=== PATIENT | female | born 1950 | race Caucasian/White ===

== ENCOUNTER 2016-09-24 22:20 | Inpatient (IN) | payer MEDICARE ==
[2016-09-24] MEDS ORDERED: MAGNESIUM SULFATE/D5W 1 GM/100 ML RTUPB IV ONE (23:42)
[2016-09-24] MEDS ORDERED: METHYLPREDNISOLONE INJ 125 MG/2 ML SDV ONE (23:43)
[2016-09-24] MEDS ORDERED: ALBUTEROL SULFATE 0.083% NEB 2.5 MG/3 ML AMPUL NEB ONE ×2 (23:44→23:47)
[2016-09-24 23:46] LABS: ABSOLUTE BASOPHILS # (AUTO) 0.1 10^3/uL (0.0-0.2); ABSOLUTE EOSINOPHILS # (AUTO) 0.4 10^3/uL (0.0-0.6); ABSOLUTE MONOCYTES (AUTO) 1.8 10^3/uL (0.1-1.4); ABSOLUTE NEUT (AUTO) 11.4 10^3/uL (1.7-8.2); BASOPHILS % (AUTO) 0.4 % (0-2); EOSINOPHILS % (AUTO) 2.5 % (0-6); HEMATOCRIT 36.5 % (36.0-47.0); HEMOGLOBIN 12.5 g/dL (12.0-15.5); MEAN CORPUSCULAR HGB CONC 34.3 g/dL (32.0-36.0); MEAN CORPUSCULAR VOLUME 88 fl (80-97); MONOCYTES % (AUTO) 12.1 % (3-13); RED BLOOD COUNT 4.17 10^6/uL (3.72-5.28); RED CELL DISTRIBUTION WIDTH 12.3 % (11.5-14.0); WHITE BLOOD COUNT 14.6 10^3/uL (4.0-10.5)
--- NOTE | 2016-09-24 23:48 | ER Document Report ---
ED General - General Chief Complaint: Shortness Of Breath Stated Complaint: DIFFICULTY BREATHING Cannot obtain history due to: Unstable vital signs Notes: Patient is a 66-year-old female with past history of COPD who presents in respiratory distress. States he's had progressive worsening of shortness of breath, cough, and sputum production for the last 4 days. She's been trying [id number] cough suppressants and her normal inhalers without any improvement in her symptoms. Nothing worsens or symptoms other than exertion. She has not seen her primary care physician regarding today's concerns. She states she has not had a fever at home. States she's had similar COPD exacerbations in the past that required admission to the hospital and noninvasive ventilation. She's never been intubated in the past. TRAVEL OUTSIDE OF THE [place] IN LAST 30 DAYS: No - Related Data Allergies/Adverse Reactions: No Known Allergies Allergy (Verified 11/18/14 13:31) Past Medical History - General Information source: Patient - Social History Smoking Status: Former Smoker Frequency of alcohol use: None Drug Abuse: None Lives with: Spouse/Significant other Family History: Reviewed & Not Pertinent - Past Medical History Cardiac Medical History: Reports: Hx Hypertension Denies: Hx Coronary Artery Disease, Hx Heart Attack Pulmonary Medical History: Reports: Hx Asthma, Hx Bronchitis, Hx COPD, Hx Pneumonia Neurological Medical History: Reports: Hx Seizures. Denies: Hx Cerebrovascular Accident Endocrine Medical History: Denies: Hx Diabetes Mellitus Type 2 Musculoskeltal Medical History: Reports Hx Arthritis Past Surgical History: Reports: Hx Appendectomy, Hx Hysterectomy, Hx Orthopedic Surgery. Denies: Hx Pacemaker - Immunizations Immunizations up to date: Yes Hx Diphtheria, Pertussis, Tetanus Vaccination: Yes Review of Systems - Review of Systems Notes: Constitutional: Negative for fever. HENT: Negative for sore throat. Eyes: Negative for visual changes. Cardiovascular: Negative for chest pain. Respiratory: Positive for shortness of breath. Gastrointestinal: Negative for abdominal pain, vomiting or diarrhea. Genitourinary: Negative for dysuria. Musculoskeletal: Negative for back pain. Skin: Negative for rash. Neurological: Negative for headaches, weakness or numbness. 10 point ROS negative except as marked above and in HPI. Physical Exam - Vital signs Vitals: Temp Pulse Resp BP Pulse Ox 98.4 F 106 H 18 146/68 H 98 09/24/16 22:25 09/24/16 22:25 09/24/16 22:25 09/24/16 22:25 09/24/16 22:25 Interpretation: Tachycardic, Hypoxic, Tachypneic Notes: PHYSICAL EXAMINATION: GENERAL: Very ill in appearance, pale and diaphoretic. In respiratory distress HEAD: Atraumatic, normocephalic. EYES: Pupils equal round and reactive to light, extraocular movements intact, sclera anicteric, conjunctiva are normal. ENT: nares patent, oropharynx clear without exudates. Dry mucous membranes. NECK: Normal range of motion, supple without lymphadenopathy LUNGS: Patient is tight air movement bilaterally, lung sounds grossly diminished on the right. She is in respiratory distress with tachypnea, supraclavicular and intercostal retractions HEART: Regular tachycardia without murmurs ABDOMEN: Soft, nontender, normoactive bowel sounds. No guarding, no rebound. No masses appreciated. EXTREMITIES: Normal range of motion, no pitting or edema. No cyanosis. NEUROLOGICAL: No focal neurological deficits. Moves all extremities spontaneously and on command. PSYCH: Normal mood, normal affect. SKIN: Warm, Dry, normal turgor, no rashes or lesions noted. Course - Re-evaluation Re-evalutation: 09/24/16 23:45 Patient arrives in respiratory distress, with supraclavicular and intercostal retractions. She is saturating 84% on 6 L by nasal cannula. Immediately upon assessment of the patient I called for BiPAP to be started immediately. Continuous nebulizers were ordered. She has already received Solu-Medrol by EMS. 2 g of magnesium will be administered over 20 minutes. A stat portal chest x-ray has been requested. Patient is critically ill from a COPD exacerbation at this time based on exam and history. She will require frequent assessments. 09/25/16 00:35 On BiPAP, patient is much improved her retractions have resolved as has her tachypnea. She is saturating 92% on 40% FiO2. She is now talking in complete sentences. Awaiting chest x-ray and lab results 09/25/16 01:21 Chest x-ray does demonstrate a right lung pneumatic infiltrate. Patient's FiO2 had to be increased to 60% as she desaturated to 89% on 40% FiO2. Her work of breathing remains much improved. Her venous blood gas does demonstrate findings consistent with a respiratory acidosis. Ceftriaxone and azithromycin as well as IV fluids will be started at this time. Her lactate is 0.7. 09/25/16 02:08 I've spoken with the patient's primary care physician Dr. Parr will admit her to the ICU. Her work of breathing continues to be much improved at this time. - Vital Signs Vital signs: Temp Pulse Resp BP Pulse Ox 98.4 F 106 H 23 H 99/57 L 96 09/24/16 22:25 09/24/16 22:25 09/25/16 01:02 09/25/16 01:02 09/25/16 01:02 - Laboratory Result Diagrams: 09/24/16 22:36 09/24/16 22:36 Laboratory results interpreted by me: 09/24/16 09/24/16 09/24/16 22:36 22:36 22:36 WBC 14.6 H Lymphocytes % 7.0 L Absolute Neutrophils 11.4 H Absolute Monocytes 1.8 H VBG pH 7.29 L VBG pCO2 82.7 H* VBG HCO3 38.7 H Sodium 136.1 L Chloride 89 L Carbon Dioxide 38 H Creatinine 0.46 L Glucose 140 H - Diagnostic Test Radiology reviewed: Image reviewed, Reports reviewed Radiology results interpreted by me: 09/25/16 02:09 Chest x-ray: Diffuse right lung infiltrate - EKG Interpretation by Me Additional EKG results interpreted by me: 09/25/16 02:11 Normal sinus rhythm. Rate 94. No ST elevations or depressions. QTC 491 Critical Care Note - Critical Care Note Total time excluding time spent on procedures (mins): 40 Comments: Critical care time spent obtaining history from patient or surrogate, discussions with consultants, development of treatment plan with patient or surrogate, evaluation of patient's response to treatment, examination of patient , ordering and performing treatments and interventions, ordering and review of laboratory studies, re-evaluation of patient's condition, ordering and review of radiographic studies and review of old charts Discharge - Discharge Clinical Impression: Respiratory distress, COPD exacerbation Pneumonia Qualifiers: Pneumonia type: due to unspecified organism Laterality: right Lung location: unspecified part of lung Qualified Code(s): J18.9 - Pneumonia, unspecified organism Sepsis Qualifiers: Sepsis type: sepsis due to unspecified organism Qualified Code(s): A41.9 - Sepsis, unspecified organism Condition: Critical Disposition: ADMITTED INPATIENT Admitting Provider: Adrian Unit Admitted: ICU
[2016-09-24] MEDS: MAGNESIUM SULFATE/D5W 100 ML IV SCH (23:55)
[2016-09-25] MEDS: MAGNESIUM SULFATE/D5W 100 ML IV SCH (00:10)
[2016-09-25 00:27] LABS: VENOUS BLOOD BASE EXCESS 7.3 mmol/L; VENOUS BLOOD HCO3 38.7 mmol/L (20-32); VENOUS BLOOD PH 7.29 (7.30-7.42)
[2016-09-25 00:30] LABS: VENOUS BLOOD PCO2 82.7 mmHg (35-63)
[2016-09-25 00:51] LABS: ANION GAP 9 (5-19); BLOOD UREA NITROGEN 9 mg/dL (7-20); CARBON DIOXIDE 38 mmol/L (22-30); CHLORIDE 89 mmol/L (98-107); CREATININE RESULT 0.46 mg/dL (0.52-1.25); GLUCOSE 140 mg/dL (75-110); POTASSIUM 4.2 mmol/L (3.6-5.0); SODIUM 136.1 mmol/L (137-145)
[2016-09-25] MEDS ORDERED: AZITHROMYCIN 250 MG TABLET PO ONE (01:00)
[2016-09-25] MEDS ORDERED: CEFTRIAXONE 1 GM/D5W RTU 50 ML IV ONE (01:00)
[2016-09-25] MEDS ORDERED: NORMAL SALINE 1000 ML 1,000 ML IV ONE (01:01)
[2016-09-25] MEDS ORDERED: ACETAMINOPHEN 325 MG TABLET PO PRN (01:54)
[2016-09-25] MEDS ORDERED: IPRATROPIUM/ALBUTEROL 0.5-2.5 MG/3 ML AMPUL NEB PRN (01:54)
[2016-09-25] MEDS: IPRATROPIUM/ALBUTEROL 0.5-2.5 MG/3 ML AMPUL NEB SCH ×4 (02:53→19:24)
[2016-09-25 03:42] LABS: ARTERIAL BLOOD BASE EXCESS 7.5 mmol/L; ARTERIAL BLOOD O2 SATURATION 96.9 % (94-98)
[2016-09-25] MEDS: ESCITALOPRAM OXALATE 10 MG TABLET PO SCH ×2 (03:52→09:20)
[2016-09-25] MEDS: CETIRIZINE 10 MG TABLET PO SCH ×2 (03:53→09:19)
[2016-09-25] MEDS ORDERED: FLUTICASONE NASAL SPRAY 50 MCG/SPRY 120 SPRAY/16 GM ONE (04:06)
[2016-09-25 04:37] LABS: HEMATOCRIT 32.5 % (36.0-47.0); HEMOGLOBIN 11.2 g/dL (12.0-15.5); HGB HCT DIFFERENCE 1.1; MEAN CORPUSCULAR HEMOGLOBIN 30.3 pg (27.0-33.4); MEAN CORPUSCULAR HGB CONC 34.5 g/dL (32.0-36.0); MEAN CORPUSCULAR VOLUME 88 fl (80-97); RED CELL DISTRIBUTION WIDTH 12.8 % (11.5-14.0); WHITE BLOOD COUNT 11.4 10^3/uL (4.0-10.5)
[2016-09-25 04:44] LABS: ANION GAP 8 (5-19); BLOOD UREA NITROGEN 11 mg/dL (7-20); CALCIUM 8.3 mg/dL (8.4-10.2); CARBON DIOXIDE 36 mmol/L (22-30); CHLORIDE 91 mmol/L (98-107); CREATININE RESULT 0.47 mg/dL (0.52-1.25); GLUCOSE 178 mg/dL (75-110); POTASSIUM 4.3 mmol/L (3.6-5.0); SODIUM 135.4 mmol/L (137-145)
[2016-09-25 04:54] LABS: BASOPHILS % (MANUAL) 0 % (0-2); EOSINOPHILS % (MANUAL) 0 % (0-6); LYMPHOCYTES % (MANUAL) 3 % (13-45); TOTAL CELLS COUNTED 100
[2016-09-25 05:02] LABS: PLATELET CLUMPS PRESENT; RBC MORPHOLOGY COMMENT NORMO-CYTIC/CHROMIC
[2016-09-25] MEDS: HEPARIN SOD (PORCINE) 5,000 UNIT/ML 1 ML SYRINGE SUBCUT SCH ×3 (06:33→22:03)
[2016-09-25] MEDS: METHYLPREDNISOLONE INJ 125 MG/2 ML SDV IV SCH ×3 (06:35→22:05)
--- NOTE | 2016-09-25 07:35 | PDOC H&P ---
History of Present Illness Admission Date/PCP: 09/25/16 01:54 RIGOBERTO CURTIS MD Patient complains of: dyspnea History of Present Illness: PRASAD CLAROS is a 66 year old female with 1w productive cough, wheeze, and dyspnea up over baseline. Smoked from 82-05. Obstructive lung since 98. Past Medical History Cardiac Medical History: Reports: Hypertension Denies: Coronary Artery Disease, Myocardial Infarction Pulmonary Medical History: Reports: Bronchitis, Chronic Obstructive Pulmonary Disease (COPD), Pneumonia, Respiratory Failure EENT Medical History: Reports: Nose - allergic rhinitis Neurological Medical History: Reports: Seizures Endocrine Medical History: Reports: Other - prediabetes Renal/ Medical History: Reports: None Malignancy Medical History: Reports: None GI Medical History: Reports: Other - polyps Musculoskeltal Medical History: Reports: Other - osteoporosis tearRmeniscus Skin Medical History: Reports: None Psychiatric Medical History: Reports: Depression Traumatic Medical History: Reports: Other - fracture R wrist Hematology: Reports: None Infectious Medical History: Reports: None Past Surgical History Past Surgical History: Reports: Appendectomy, Hysterectomy, Orthopedic Surgery - Rmenisectomy Denies: Pacemaker Social History Information Source: Dr. Priest Lives with: Spouse/Significant other Smoking Status: Former Smoker Number of Years Smokin Last Time Smoked: 2001 Frequency of Alcohol Use: None Hx Recreational Drug Use: No Hx Prescription Drug Abuse: No - Advance Directive Resuscitation Status: Full Code Family History Family History: CAD, CVA, Hypertension, Malignancy Parental Family History Reviewed: Yes Children Family History Reviewed: Yes Sibling(s) Family History Reviewed.: Yes Medication/Allergy Home Medications: Albuterol Sulfate [Proair HFA] 1 - 2 puff IH Q4 PRN 11/18/14 Cetirizine HCl [Zyrtec] 10 mg PO DAILY 11/18/14 Simvastatin [Zocor 40 mg Tablet] 40 mg PO QHS 11/18/14 Tiotropium [place] [Spiriva Handihaler 5 Cap/Kit (18 Mcg/Cap)] 1 inh PO BID Escitalopram Oxalate [Lexapro] 20 mg PO DAILY 11/19/14 Fluticasone/Salmeterol [Advair 500-50 Diskus 14 Dose/Diskus] 1 inh IH Q12H 11/19 Phenytoin Sodium Extended [Dilantin 100 mg Capsule.er] 400 mg PO QAM 11/19/14 Losartan Potassium 100 mg PO DAILY 09/25/16 Montelukast Sodium 10 mg PO DAILY 09/25/16 Allergies/Adverse Reactions: No Known Allergies Allergy (Verified 09/25/16 05:30) Review of Systems Constitutional: ABSENT: fever(s), headache(s), weight loss Nose, Mouth, and Throat: ABSENT: headache(s), sore throat Cardiovascular: PRESENT: dyspnea on exertion. ABSENT: chest pain, orthropnea Respiratory: PRESENT: cough, dyspnea, sputum Gastrointestinal: PRESENT: diarrhea. ABSENT: abdominal pain, constipation, hematochezia, melena, vomiting Genitourinary: ABSENT: dysuria, hematuria Musculoskeletal: ABSENT: back pain Integumentary: ABSENT: rash Physical Exam Vital Signs: Temp Pulse Resp BP Pulse Ox 98.0 F 80 21 H 115/56 L 94 09/25/16 06:40 09/25/16 06:40 09/25/16 06:40 09/25/16 06:40 09/25/16 06:40 Intake & Output 09/23/16 09/24/16 09/25/16 07:59 07:59 07:59 Weight 176 lb 12.972 oz General appearance: PRESENT: no acute distress Eye exam: ABSENT: conjunctival injection Mouth exam: PRESENT: dry mucosa, neck supple, tongue midline Neck exam: ABSENT: lymphadenopathy, tenderness, thyromegaly, tracheal deviation Respiratory exam: PRESENT: prolonged expiratory phas, wheezes - slignt. ABSENT : rales, rhonchi Cardiovascular exam: ABSENT: diastolic murmur, irregular rhythm, systolic murmur GI/Abdominal exam: ABSENT: mass, organolmegaly, tenderness Extremities exam: ABSENT: pedal edema Neurological exam: PRESENT: oriented to situation Psychiatric exam: PRESENT: appropriate affect Results Laboratory Results: 09/25/16 03:26 09/25/16 03:26 09/25/16 09/25/16 09/25/16 03:26 03:26 03:34 WBC 11.4 H RBC 3.70 L Hgb 11.2 L Hct 32.5 L MCV 88 MCH 30.3 MCHC 34.5 RDW 12.8 Plt Count 342 Seg Neutrophils % Not Reportable Lymphocytes % Not Reportable Monocytes % Not Reportable Eosinophils % Not Reportable Basophils % Not Reportable Absolute Neutrophils Not Reportable Absolute Lymphocytes Not Reportable Absolute Monocytes Not Reportable Absolute Eosinophils Not Reportable Absolute Basophils Not Reportable Carbonic Acid 2.03 H HCO3/H2CO3 Ratio 17:1 ABG pH 7.34 L ABG pCO2 67.4 H ABG pO2 98.2 ABG HCO3 35.4 H ABG O2 Saturation 96.9 ABG Base Excess 7.5 FiO2 60% Sodium 135.4 L Potassium 4.3 Chloride 91 L Carbon Dioxide 36 H Anion Gap 8 BUN 11 Creatinine 0.47 L Est GFR ( Amer) > 60 Est GFR (Non-Af Amer) > 60 Glucose 178 H Calcium 8.3 L Impressions: Chest X-Ray 09/24/16 23:37 IMPRESSION: Fairly diffuse ill-defined interstitial and alveolar densities in the right lung as noted above most consistent with a pneumonic infiltrate. Other findings as noted above Assessment & Plan - Diagnosis (1) Acute exacerbation of chronic bronchitis Is this a current diagnosis for this admission?: YesPlan: steroid, levaquin, nebs (2) Pneumonia Qualifiers: Pneumonia type: due to unspecified organism Laterality: right Lung location: lower lobe of lung Qualified Code(s): J18.1 - Lobar pneumonia, unspecified organism Is this a current diagnosis for this admission?: YesPlan: levaquin (3) Sepsis-associated organ dysfunction Is this a current diagnosis for this admission?: YesPlan: pulse respirations wbc pneumonia (4) Acute and chronic respiratory failure with hypercapnia Is this a current diagnosis for this admission?: YesPlan: pCO2 & CO2 high. Now off bipap but may need it again - Time Time Spent: 30 to 50 Minutes Smoking Cessation Education: 3 to 10 minutes Medications reviewed and adjusted accordingly: Yes Anticipated discharge: Home Within: Other
[2016-09-25] MEDS: PHENYTOIN SODIUM EXTENDED 100 MG CAPSULE PO SCH (07:45)
[2016-09-25] MEDS: GUAIFENESIN 600 MG TABLET.SA PO SCH ×2 (09:20→22:00)
[2016-09-25] MEDS: FLUTICASONE NASAL SPRAY 50 MCG/SPRY 120 SPRAY/16 GM NASL SCH ×2 (09:22→22:02)
[2016-09-25] MEDS: TIOTROPIUM BROMIDE DPI 5 CAP/KIT (18 MCG/CAP) IH SCH (09:22)
[2016-09-25] MEDS ORDERED: LEVOFLOXACIN 750 MG/D5W RTU 750 MG/150 ML RTUPB IV SCH (10:00)
--- NOTE | 2016-09-25 11:01 | EKG REPORT ---
SEVERITY:- ABNORMAL ECG - SINUS RHYTHM PROBABLE LEFT ATRIAL ABNORMALITY LEFT AXIS DEVIATION LVH WITH SECONDARY REPOLARIZATION ABNORMALITY BORDERLINE PROLONGED QT INTERVAL : Confirmed by: Manas Scherer 25-Sep-2016 11:00:56
[2016-09-25] MEDS: SIMVASTATIN 40 MG TABLET PO SCH (22:00)
[2016-09-26] MEDS: IPRATROPIUM/ALBUTEROL 0.5-2.5 MG/3 ML AMPUL NEB SCH ×4 (02:04→19:49)
[2016-09-26 04:57] LABS: ABSOLUTE LYMPHOCYTES (AUTO) 0.8 10^3/uL (0.5-4.7); ABSOLUTE MONOCYTES (AUTO) 0.6 10^3/uL (0.1-1.4); ABSOLUTE NEUT (AUTO) 8.2 10^3/uL (1.7-8.2); BASOPHILS % (AUTO) 0.3 % (0-2); EOSINOPHILS % (AUTO) 0.1 % (0-6); HEMATOCRIT 30.6 % (36.0-47.0); HEMOGLOBIN 10.6 g/dL (12.0-15.5); HGB HCT DIFFERENCE 1.2; MEAN CORPUSCULAR HGB CONC 34.7 g/dL (32.0-36.0); MEAN CORPUSCULAR VOLUME 86 fl (80-97); MONOCYTES % (AUTO) 6.6 % (3-13); RED BLOOD COUNT 3.55 10^6/uL (3.72-5.28); RED CELL DISTRIBUTION WIDTH 12.6 % (11.5-14.0); WHITE BLOOD COUNT 9.6 10^3/uL (4.0-10.5)
[2016-09-26 05:19] LABS: ANION GAP 5 (5-19); BLOOD UREA NITROGEN 12 mg/dL (7-20); CALCIUM 8.3 mg/dL (8.4-10.2); CARBON DIOXIDE 37 mmol/L (22-30); CHLORIDE 89 mmol/L (98-107); GLUCOSE 164 mg/dL (75-110); POTASSIUM 5.2 mmol/L (3.6-5.0); SODIUM 131.4 mmol/L (137-145)
[2016-09-26] MEDS ORDERED: FLUTICASONE/SALMETEROL DISKUS 500-50 MCG/DOSE IH SCH (06:45)
--- NOTE | 2016-09-26 06:52 | PDOC PROGRESS REPORT ---
Subjective Progress Note for:: 09/26/16 Subjective:: better. Misses juarezair Physical Exam Vital Signs: Temp Pulse Resp BP Pulse Ox 98.7 F 82 18 124/55 L 93 09/25/16 23:08 09/26/16 06:24 09/26/16 02:04 09/25/16 23:08 09/26/16 02:04 Intake & Output 09/24/16 09/25/16 09/26/16 07:59 07:59 07:59 Intake Total 1397 Balance 1397 Weight 176 lb 12.972 oz General appearance: PRESENT: no acute distress Respiratory exam: PRESENT: wheezes - mild Cardiovascular exam: ABSENT: diastolic murmur, irregular rhythm, systolic murmur GI/Abdominal exam: ABSENT: mass, organolmegaly, tenderness Extremities exam: ABSENT: pedal edema Results Laboratory Results: 09/26/16 04:13 09/26/16 04:13 09/26/16 09/26/16 04:13 04:13 WBC 9.6 RBC 3.55 L Hgb 10.6 L Hct 30.6 L MCV 86 MCH 30.0 MCHC 34.7 RDW 12.6 Plt Count 384 Seg Neutrophils % 85.0 H Lymphocytes % 8.0 L Monocytes % 6.6 Eosinophils % 0.1 Basophils % 0.3 Absolute Neutrophils 8.2 Absolute Lymphocytes 0.8 Absolute Monocytes 0.6 Absolute Eosinophils 0.0 Absolute Basophils 0.0 Sodium 131.4 L Potassium 5.2 H Chloride 89 L Carbon Dioxide 37 H Anion Gap 5 BUN 12 Creatinine 0.50 L Est GFR ( Amer) > 60 Est GFR (Non-Af Amer) > 60 Glucose 164 H Calcium 8.3 L EKG Comments: Abnormal - 24 hr 09/26/16 09/26/16 04:13 04:13 RBC 3.55 L Hgb 10.6 L Hct 30.6 L Seg Neutrophils % 85.0 H Lymphocytes % 8.0 L Sodium 131.4 L Potassium 5.2 H Chloride 89 L Carbon Dioxide 37 H Creatinine 0.50 L Glucose 164 H Calcium 8.3 L Impressions: Chest X-Ray 09/24/16 23:37 IMPRESSION: Fairly diffuse ill-defined interstitial and alveolar densities in the right lung as noted above most consistent with a pneumonic infiltrate. Other findings as noted above Assessment & Plan - Diagnosis (1) Acute exacerbation of chronic bronchitis Is this a current diagnosis for this admission?: YesPlan: improving. Switch po meds (2) Pneumonia Qualifiers: Pneumonia type: due to unspecified organism Laterality: right Lung location: lower lobe of lung Qualified Code(s): J18.1 - Lobar pneumonia, unspecified organism Is this a current diagnosis for this admission?: Yes (3) Sepsis-associated organ dysfunction Is this a current diagnosis for this admission?: Yes (4) Acute and chronic respiratory failure with hypercapnia Is this a current diagnosis for this admission?: Yes (5) Anemia Qualifiers: Anemia type: unspecified type Qualified Code(s): D64.9 - Anemia, unspecified Is this a current diagnosis for this admission?: YesPlan: Hct down 6 since admission. iron studies. Stop heparin
[2016-09-26] MEDS: PHENYTOIN SODIUM EXTENDED 100 MG CAPSULE PO SCH (07:07)
[2016-09-26 08:31] LABS: FOLATE 6.92 ng/mL (>2.76)
[2016-09-26] MEDS: CETIRIZINE 10 MG TABLET PO SCH (09:56)
[2016-09-26] MEDS: GUAIFENESIN 600 MG TABLET.SA PO SCH ×2 (09:57→21:34)
[2016-09-26] MEDS: PREDNISONE 20 MG TABLET PO SCH ×2 (09:57→17:11)
[2016-09-26] MEDS: LEVOFLOXACIN 750 MG TABLET PO SCH (09:57)
[2016-09-26] MEDS: ESCITALOPRAM OXALATE 10 MG TABLET PO SCH (09:58)
[2016-09-26] MEDS: TIOTROPIUM BROMIDE DPI 5 CAP/KIT (18 MCG/CAP) IH SCH (09:59)
[2016-09-26] MEDS: FLUTICASONE NASAL SPRAY 50 MCG/SPRY 120 SPRAY/16 GM NASL SCH ×2 (09:59→21:35)
[2016-09-26] MEDS: FLUTICASONE/SALMETEROL DISKUS 500-50 MCG/DOSE IH SCH ×2 (10:00→21:35)
[2016-09-26 14:16] LABS: URINE BARBITURATES SCREEN NEGATIVE; URINE METHADONE SCREEN NEGATIVE; URINE PHENCYCLIDINE SCREEN NEGATIVE
[2016-09-26 14:29] LABS: URINE OPIATES LOW UNCONFIRMED POSITIVE
[2016-09-26] MEDS: SIMVASTATIN 40 MG TABLET PO SCH (21:34)
[2016-09-27] MEDS: IPRATROPIUM/ALBUTEROL 0.5-2.5 MG/3 ML AMPUL NEB SCH ×4 (02:28→19:51)
[2016-09-27 05:20] LABS: ABSOLUTE EOSINOPHILS # (AUTO) 0.1 10^3/uL (0.0-0.6); ABSOLUTE LYMPHOCYTES (AUTO) 2.1 10^3/uL (0.5-4.7); ABSOLUTE MONOCYTES (AUTO) 1.1 10^3/uL (0.1-1.4); ABSOLUTE NEUT (AUTO) 6.6 10^3/uL (1.7-8.2); BASOPHILS % (AUTO) 0.5 % (0-2); EOSINOPHILS % (AUTO) 1.1 % (0-6); HEMATOCRIT 33.6 % (36.0-47.0); HEMOGLOBIN 11.3 g/dL (12.0-15.5); HGB HCT DIFFERENCE 0.3; LYMPHOCYTES % (AUTO) 21.4 % (13-45); MEAN CORPUSCULAR HEMOGLOBIN 29.6 pg (27.0-33.4); MEAN CORPUSCULAR HGB CONC 33.7 g/dL (32.0-36.0); MEAN CORPUSCULAR VOLUME 88 fl (80-97); MONOCYTES % (AUTO) 11.1 % (3-13); RED BLOOD COUNT 3.82 10^6/uL (3.72-5.28); RED CELL DISTRIBUTION WIDTH 12.2 % (11.5-14.0); SEGMENTED NEUTROPHILS % (AUTO) 65.9 % (42-78)
[2016-09-27 05:45] LABS: ANION GAP 8 (5-19); BLOOD UREA NITROGEN 11 mg/dL (7-20); CALCIUM 8.5 mg/dL (8.4-10.2); CARBON DIOXIDE 37 mmol/L (22-30); CHLORIDE 91 mmol/L (98-107); CREATININE RESULT 0.45 mg/dL (0.52-1.25); GLUCOSE 132 mg/dL (75-110); POTASSIUM 4.3 mmol/L (3.6-5.0); SODIUM 135.6 mmol/L (137-145)
--- NOTE | 2016-09-27 06:54 | PDOC PROGRESS REPORT ---
Subjective Progress Note for:: 09/27/16 Subjective:: improving but not a baseline yet wants to consult Dr Mosley Physical Exam Vital Signs: Temp Pulse Resp BP Pulse Ox 98.1 F 73 20 116/71 92 09/27/16 04:33 09/27/16 04:33 09/27/16 04:33 09/27/16 04:33 09/27/16 04:33 Intake & Output 09/25/16 09/26/16 09/27/16 07:59 07:59 07:59 Intake Total 1697 1317 Output Total 2900 Balance 1697 -1583 Weight 176 lb 12.972 oz 185 lb 3.013 oz General appearance: PRESENT: no acute distress Respiratory exam: PRESENT: clear to auscultation pooja Cardiovascular exam: ABSENT: diastolic murmur, irregular rhythm, systolic murmur GI/Abdominal exam: ABSENT: mass, organolmegaly, tenderness Extremities exam: ABSENT: pedal edema Results Laboratory Results: 09/27/16 03:55 09/27/16 03:55 09/26/16 09/26/16 09/27/16 04:13 04:13 03:55 WBC 10.0 RBC 3.82 Hgb 11.3 L Hct 33.6 L MCV 88 MCH 29.6 MCHC 33.7 RDW 12.2 Plt Count 435 Seg Neutrophils % 65.9 Lymphocytes % 21.4 Monocytes % 11.1 Eosinophils % 1.1 Basophils % 0.5 Absolute Neutrophils 6.6 Absolute Lymphocytes 2.1 Absolute Monocytes 1.1 Absolute Eosinophils 0.1 Absolute Basophils 0.0 Retic Count (auto) 1.60 Absolute Retic 0.059 Sodium Potassium Chloride Carbon Dioxide Anion Gap BUN Creatinine Est GFR ( Amer) Est GFR (Non-Af Amer) Glucose Calcium Iron 46 TIBC 249 L % Saturation 18 Ferritin 191.00 Vitamin B12 228.0 L Folate 6.92 09/27/16 03:55 WBC RBC Hgb Hct MCV MCH MCHC RDW Plt Count Seg Neutrophils % Lymphocytes % Monocytes % Eosinophils % Basophils % Absolute Neutrophils Absolute Lymphocytes Absolute Monocytes Absolute Eosinophils Absolute Basophils Retic Count (auto) Absolute Retic Sodium 135.6 L Potassium 4.3 Chloride 91 L Carbon Dioxide 37 H Anion Gap 8 BUN 11 Creatinine 0.45 L Est GFR ( Amer) > 60 Est GFR (Non-Af Amer) > 60 Glucose 132 H Calcium 8.5 Iron TIBC % Saturation Ferritin Vitamin B12 Folate EKG Comments: Abnormal - 24 hr 09/26/16 09/27/16 09/27/16 04:13 03:55 03:55 Hgb 11.3 L Hct 33.6 L Sodium 135.6 L Chloride 91 L Carbon Dioxide 37 H Creatinine 0.45 L Glucose 132 H TIBC 249 L Vitamin B12 228.0 L Impressions: Chest X-Ray 09/24/16 23:37 IMPRESSION: Fairly diffuse ill-defined interstitial and alveolar densities in the right lung as noted above most consistent with a pneumonic infiltrate. Other findings as noted above Assessment & Plan - Diagnosis (1) Acute exacerbation of chronic bronchitis Is this a current diagnosis for this admission?: YesPlan: consult Dr Mosley (2) Pneumonia Qualifiers: Pneumonia type: due to unspecified organism Laterality: right Lung location: lower lobe of lung Qualified Code(s): J18.1 - Lobar pneumonia, unspecified organism Is this a current diagnosis for this admission?: YesPlan: d4 levaquin (3) Sepsis-associated organ dysfunction Is this a current diagnosis for this admission?: Yes (4) Acute and chronic respiratory failure with hypercapnia Is this a current diagnosis for this admission?: YesPlan: CO2 still 37 (5) Anemia Qualifiers: Anemia type: B12 deficiency Vitamin B12 deficiency anemia type: other dietary B12 deficiency Qualified Code(s): D51.3 - Other dietary vitamin B12 deficiency anemia Is this a current diagnosis for this admission?: YesPlan: b12 anti IF
[2016-09-27] MEDS: TIOTROPIUM BROMIDE DPI 5 CAP/KIT (18 MCG/CAP) IH SCH (09:31)
[2016-09-27] MEDS: FLUTICASONE NASAL SPRAY 50 MCG/SPRY 120 SPRAY/16 GM NASL SCH ×2 (09:31→21:03)
[2016-09-27] MEDS: LEVOFLOXACIN 750 MG TABLET PO SCH (09:32)
[2016-09-27] MEDS: PHENYTOIN SODIUM EXTENDED 100 MG CAPSULE PO SCH (09:32)
[2016-09-27] MEDS: CYANOCOBALAMIN (VITAMIN B-12) 1,000 MCG TABLET PO SCH (09:33)
[2016-09-27] MEDS: GUAIFENESIN 600 MG TABLET.SA PO SCH ×2 (09:34→21:04)
[2016-09-27] MEDS: FLUTICASONE/SALMETEROL DISKUS 500-50 MCG/DOSE IH SCH ×2 (09:35→21:03)
[2016-09-27] MEDS: PREDNISONE 20 MG TABLET PO SCH ×2 (09:35→18:01)
[2016-09-27] MEDS: SIMVASTATIN 40 MG TABLET PO SCH (21:04)
[2016-09-28] MEDS: IPRATROPIUM/ALBUTEROL 0.5-2.5 MG/3 ML AMPUL NEB SCH ×2 (02:11→07:45)
[2016-09-28 04:43] LABS: ABSOLUTE BASOPHILS # (AUTO) 0.1 10^3/uL (0.0-0.2); ABSOLUTE EOSINOPHILS # (AUTO) 0.2 10^3/uL (0.0-0.6); ABSOLUTE LYMPHOCYTES (AUTO) 2.3 10^3/uL (0.5-4.7); ABSOLUTE MONOCYTES (AUTO) 1.2 10^3/uL (0.1-1.4); ABSOLUTE NEUT (AUTO) 7.9 10^3/uL (1.7-8.2); BASOPHILS % (AUTO) 0.5 % (0-2); HEMATOCRIT 34.7 % (36.0-47.0); HEMOGLOBIN 11.5 g/dL (12.0-15.5); HGB HCT DIFFERENCE -0.2; LYMPHOCYTES % (AUTO) 19.3 % (13-45); MEAN CORPUSCULAR HGB CONC 33.2 g/dL (32.0-36.0); MEAN CORPUSCULAR VOLUME 87 fl (80-97); MONOCYTES % (AUTO) 10.4 % (3-13); RED BLOOD COUNT 3.97 10^6/uL (3.72-5.28); RED CELL DISTRIBUTION WIDTH 12.5 % (11.5-14.0); SEGMENTED NEUTROPHILS % (AUTO) 67.8 % (42-78); WHITE BLOOD COUNT 11.7 10^3/uL (4.0-10.5)
[2016-09-28 04:58] LABS: ANION GAP 8 (5-19); BLOOD UREA NITROGEN 10 mg/dL (7-20); CALCIUM 8.6 mg/dL (8.4-10.2); CARBON DIOXIDE 37 mmol/L (22-30); CHLORIDE 92 mmol/L (98-107); CREATININE RESULT 0.42 mg/dL (0.52-1.25); GLUCOSE 101 mg/dL (75-110); POTASSIUM 4.6 mmol/L (3.6-5.0); SODIUM 137.2 mmol/L (137-145)
--- NOTE | 2016-09-28 07:57 | PDOC DISCHARGE SUMMARY ---
General - Admit/Disc Date/PCP Admission Date/Primary Care Provider: 09/25/16 01:54 RIGOBERTO CURTIS MD Discharge Date: 09/28/16 - Discharge Diagnosis (1) Acute exacerbation of chronic bronchitis Is this a current diagnosis for this admission?: YesSummary: improved on prednisone to baseline (2) Pneumonia Is this a current diagnosis for this admission?: YesSummary: still afebrile after 1d ceftriaxone and 4 days levaquin. Less cough (3) Sepsis-associated organ dysfunction Is this a current diagnosis for this admission?: YesSummary: met SIRS criteria for lung. Improved (4) Acute and chronic respiratory failure with hypercapnia Is this a current diagnosis for this admission?: Yes (5) Anemia Is this a current diagnosis for this admission?: YesSummary: improved but b12 low. Anti IF pending. Started b12 - Additional Information Resuscitation Status: Full Code Discharge Diet: Cardiac Discharge Activity: Activity As Tolerated Home Medications: Cetirizine HCl [Zyrtec] 10 mg PO DAILY 11/18/14 Simvastatin [Zocor 40 mg Tablet] 40 mg PO QHS 11/18/14 Tiotropium [place] [Spiriva Handihaler 5 Cap/Kit (18 Mcg/Cap)] 1 inh PO BID Escitalopram Oxalate [Lexapro] 20 mg PO DAILY 11/19/14 Fluticasone/Salmeterol [Advair 500-50 Diskus 14 Dose/Diskus] 1 inh IH Q12H 11/19 Phenytoin Sodium Extended [Dilantin 100 mg Capsule.er] 400 mg PO QAM 11/19/14 Albuterol Sulfate [Proair HFA] 1 puff IH Q4HP PRN 09/25/16 Losartan Potassium 100 mg PO DAILY 09/25/16 Montelukast Sodium 10 mg PO DAILY 09/25/16 Cyanocobalamin (Vitamin B-12) [Vitamin B-12 1000 mcg Tablet] 2,000 mcg PO DAILY #100 tablet 09/28/16 Levofloxacin [Levaquin 750 mg Tablet] 750 mg PO DAILY #1 tablet 09/28/16 Prednisone [Deltasone 20 mg Tablet] 20 mg PO BID #6 tablet 09/28/16 History of Present Illness History of Present Illness: PRASAD CLAROS is a 66 year old female with 1w productive cough, wheeze, and dyspnea up over baseline. Smoked from 82-05. Obstructive lung since 98. Hospital Course Hospital Course: see problems above Physical Exam Vital Signs: Temp Pulse Resp BP Pulse Ox 97.7 F 75 20 127/62 H 98 09/28/16 03:10 09/28/16 03:10 09/28/16 03:10 09/28/16 03:10 09/28/16 03:10 Intake & Output 09/26/16 09/27/16 09/28/16 07:59 07:59 07:59 Intake Total 1697 1617 3269 Output Total 2900 Balance 1697 -1283 3269 Weight 185 lb 3.013 oz 168 lb 13.985 oz 179 lb 3.773 oz General appearance: PRESENT: no acute distress Respiratory exam: PRESENT: clear to auscultation pooja Cardiovascular exam: ABSENT: diastolic murmur, irregular rhythm, systolic murmur GI/Abdominal exam: ABSENT: mass, organolmegaly, tenderness Extremities exam: ABSENT: pedal edema Neurological exam: PRESENT: oriented to situation Results Laboratory Results: 09/28/16 03:43 09/28/16 03:43 09/28/16 09/28/16 03:43 03:43 WBC 11.7 H RBC 3.97 Hgb 11.5 L Hct 34.7 L MCV 87 MCH 29.0 MCHC 33.2 RDW 12.5 Plt Count 448 Seg Neutrophils % 67.8 Lymphocytes % 19.3 Monocytes % 10.4 Eosinophils % 2.0 Basophils % 0.5 Absolute Neutrophils 7.9 Absolute Lymphocytes 2.3 Absolute Monocytes 1.2 Absolute Eosinophils 0.2 Absolute Basophils 0.1 Sodium 137.2 Potassium 4.6 Chloride 92 L Carbon Dioxide 37 H Anion Gap 8 BUN 10 Creatinine 0.42 L Est GFR ( Amer) > 60 Est GFR (Non-Af Amer) > 60 Glucose 101 Calcium 8.6 Impressions: Chest X-Ray 09/24/16 23:37 IMPRESSION: Fairly diffuse ill-defined interstitial and alveolar densities in the right lung as noted above most consistent with a pneumonic infiltrate. Other findings as noted above Qualifiers PATEINT BEING DISCHARGED WITH ANY OF THE FOLLOWING DIAGNOSIS?: No Plan Discharge Plan: home. 8d migdalia Time Spent: Greater than 30 Minutes
[2016-09-28] MEDS: PHENYTOIN SODIUM EXTENDED 100 MG CAPSULE PO SCH (08:55)
[2016-09-28] MEDS: CETIRIZINE 10 MG TABLET PO SCH (09:23)
[2016-09-28] MEDS: TIOTROPIUM BROMIDE DPI 5 CAP/KIT (18 MCG/CAP) IH SCH (09:23)
[2016-09-28] MEDS: FLUTICASONE/SALMETEROL DISKUS 500-50 MCG/DOSE IH SCH (09:23)
[2016-09-28] MEDS: ESCITALOPRAM OXALATE 10 MG TABLET PO SCH (09:23)
[2016-09-28] MEDS: FLUTICASONE NASAL SPRAY 50 MCG/SPRY 120 SPRAY/16 GM NASL SCH (09:24)
[2016-09-28] MEDS: GUAIFENESIN 600 MG TABLET.SA PO SCH (09:24)
[2016-09-28] MEDS: PREDNISONE 20 MG TABLET PO SCH (09:24)
[2016-09-28] MEDS: LEVOFLOXACIN 750 MG TABLET PO SCH (09:24)
[2016-09-28] MEDS: CYANOCOBALAMIN (VITAMIN B-12) 1,000 MCG TABLET PO SCH (09:24)
[2016-09-28 11:32] VITALS: BP 115/56
== END 2016-09-28 12:16 | disposition home or self-care (01) | DRG 871 ==
LOC: ER 22:20 → EH 09-25 01:54 → UNDOADMIN 09-25 02:07 → 3N 09-25 06:23
PROVIDERS: ADMIT Family Medicine; ATTEND Family Medicine
PROC: 5A09457 Assistance with Respiratory Ventilation, 24-96 Consecutive Hours, Continuous Positive Airway Pressure (ICD-10-PCS; principal; 2016-09-25)
DX: A41.9 Sepsis, unspecified organism (principal); J96.22 Acute and chronic respiratory failure with hypercapnia; J18.9 Pneumonia, unspecified organism; J44.1 Chronic obstructive pulmonary disease with (acute) exacerbation; R65.20 Severe sepsis without septic shock; D51.3 Other dietary vitamin B12 deficiency anemia; I10 Essential (primary) hypertension; R73.03 Prediabetes; F31.9 Bipolar disorder, unspecified; Z87.891 Personal history of nicotine dependence; Z90.49 Acquired absence of other specified parts of digestive tract; Z90.710 Acquired absence of both cervix and uterus; Z86.010 Personal history of colon polyps
CPT/HCPCS: 36415; 36600; 71010; 80048; 80307; 82607; 82728; 82746; 82803; 83540; 83550; 83605; 84484; 85025; 85045; 86340; 87040; 87070; 87205; 93005; 93010; 94660; 94799; J0696; J1644; J1956; J2930; J3475; J3490; J7030; J7512; J7620

== ENCOUNTER 2017-03-08 22:19 | Inpatient (IN) | payer MEDICARE ==
--- NOTE | 2017-03-08 23:07 | RADIOLOGY REPORT (SQ) ---
EXAM DESCRIPTION: HIP RIGHT AP/LATERAL COMPLETED DATE/TIME: 03/08/2017 10:56 pm REASON FOR STUDY: fall COMPARISON: None. NUMBER OF VIEWS: Two views. TECHNIQUE: AP pelvis and additional frog-leg view of the right hip. LIMITATIONS: None. FINDINGS: MINERALIZATION: Osteopenia. RIGHT HIP: Comminuted intertrochanteric fracture with superior migration of the shaft. LEFT HIP: No fracture or dislocation. No worrisome bone lesions. PUBIS AND ISCHIUM: No fracture. PELVIS: No fracture. SACRUM: No fracture or dislocation. No worrisome bone lesions. LOWER LUMBAR SPINE: No fracture or dislocation. No worrisome bone lesions. No significant disc disea se. SOFT TISSUES: No findings. OTHER: No other significant finding. IMPRESSION: Comminuted intra trochanteric fracture of the right hip. TECHNICAL DOCUMENTATION: JOB ID: [id number] [employer]- All Rights Reserved
--- NOTE | 2017-03-08 23:08 | RADIOLOGY REPORT (SQ) ---
EXAM DESCRIPTION: CHEST SINGLE VIEW COMPLETED DATE/TIME: 03/08/2017 10:56 pm REASON FOR STUDY: FALL COMPARISON: 10/15/2016 EXAM PARAMETERS: NUMBER OF VIEWS: One view. TECHNIQUE: Single frontal radiographic view of the chest acquired. RADIATION DOSE: NA LIMITATIONS: None. FINDINGS: LUNGS AND PLEURA: Right lung clear. Chronic changes at the left base. MEDIASTINUM AND HILAR STRUCTURES: No masses. Contour normal. HEART AND VASCULAR STRUCTURES: Heart normal in size. Normal vasculature. BONES: No acute findings. HARDWARE: None in the chest. OTHER: No other significant finding. IMPRESSION: NO ACUTE RADIOGRAPHIC FINDING IN THE CHEST. TECHNICAL DOCUMENTATION: JOB ID: [id number]
[2017-03-08] MEDS ORDERED: FENTANYL CITRATE INJ/PF 100 MCG/2 ML AMPUL IV ONE (23:11)
--- NOTE | 2017-03-08 23:11 | ER Document Report ---
ED Fall - General Mode of Arrival: Medic Information source: Patient TRAVEL OUTSIDE OF THE [place] IN LAST 30 DAYS: No - HPI Occurred: Just prior to arrival - Refer to HPI notes Where: Home Context: Fell from standing Associated symptoms: None Location of injury/pain: Hip <HORACIO SWANSON - Last Filed: 03/09/17 02:47> <CHAPARRO LECHUGAMY - Last Filed: 03/09/17 04:31> - General Chief Complaint: Fall Stated Complaint: FALL,LEFT HIP PAIN Time Seen by Provider: 03/08/17 23:02 Notes: Patient is a 66 year old female presenting to the emergency department for a fall. Patient got up out of the chair and fell onto the hardwood floor on her right side. Patient complains of pain to her right hip. Patient has had fractures in the past. Patient did not hit her head and did not loose consciousness. Patient has a history of seizures. Patient is currently taking antibiotics for a sinus infection. PCP Dr. Campbell (HORACIO SWANSON) - Related data Allergies/Adverse Reactions: No Known Allergies Allergy (Verified 09/25/16 05:30) Past Medical History - General Information source: Patient - Social History Smoking Status: Smoker,Current Status Unk Family History: CAD, CVA, Hypertension, Malignancy Patient has suicidal ideation: No Patient has homicidal ideation: No - Past Medical History Cardiac Medical History: Reports: Hx Hypertension Pulmonary Medical History: Reports: Hx Asthma, Hx Bronchitis, Hx COPD, Hx Pneumonia, Hx Respiratory Failure Neurological Medical History: Reports: Hx Seizures Musculoskeltal Medical History: Reports Hx Arthritis Psychiatric Medical History: Reports: Hx Depression Traumatic Medical History: Reports: Hx Fractures Past Surgical History: Reports: Hx Appendectomy, Hx Hysterectomy, Hx Orthopedic Surgery - Rmenisectomy - Immunizations Immunizations up to date: Yes Hx Diphtheria, Pertussis, Tetanus Vaccination: Yes <HORACIO SWANSON - Last Filed: 03/09/17 02:47> Review of Systems - Review of Systems Constitutional: No symptoms reported EENT: No symptoms reported Cardiovascular: No symptoms reported Respiratory: No symptoms reported Gastrointestinal: No symptoms reported Genitourinary: No symptoms reported Female Genitourinary: No symptoms reported Musculoskeletal: See HPI Skin: No symptoms reported Hematologic/Lymphatic: No symptoms reported Neurological/Psychological: No symptoms reported -: Yes All other systems reviewed and negative <HORACIO SWANSON - Last Filed: 03/09/17 02:47> Physical Exam - Vital signs Interpretation: Hypertensive <ROCÍOHORACIO RUGGIERO - Last Filed: 03/09/17 02:47> <CHAPARRO LECHUGAMY - Last Filed: 03/09/17 04:31> - Vital signs Vitals: Temp Pulse Resp BP Pulse Ox 97.8 F 93 20 136/83 H 90 L 03/08/17 22:37 03/08/17 22:37 03/08/17 22:37 03/08/17 22:37 03/08/17 22:37 BP 150/67 H 03/09/17 00:18 (HORACIO SWANSON) - Notes Notes: GENERAL: Alert, interacts well, appears uncomfortable, patient screams out in pain when she moves her right leg/hip, moderate distress. HEAD: Normocephalic, atraumatic. EYES: Appear normal. Pupils equal, round, and reactive to light. ENT: Moist mucus membranes, tongue midline. NECK: Full range of motion. Supple. Trachea midline. Non-tender. LUNGS: Clear to auscultation bilaterally, no wheezes, rales, or rhonchi. No respiratory distress. HEART: Regular rate and rhythm. No murmurs, gallops, or rubs. ABDOMEN: Soft, non-tender. Non-distended. Normal bowel sounds. EXTREMITIES: Right leg is shorter than the left, right leg is externally rotated , tenderness over the right hip. NEUROLOGICAL: Alert and oriented x3. Normal speech. No focal neurological deficits. GSC 15. PSYCH: Normal affect, normal mood. SKIN: Warm, dry, normal turgor. No rashes or lesions noted. (HORACIO SWANSON) Course - Laboratory Result Diagrams: 03/08/17 23:25 03/08/17 23:25 - Consults Dr. Jara Time consulted: 00:25 Dr. Campbell Time consulted: 01:10 <KIKIELONHORACIO - Last Filed: 03/09/17 02:47> - Laboratory Result Diagrams: 03/08/17 23:25 03/08/17 23:25 <MATIAS LECHUGA - Last Filed: 03/09/17 04:31> - Re-evaluation Re-evalutation: 03/09/17 02:38 (HORACIO SWANSON) 03/09/17 00:26 Patient presents emergency department with severe hip pain and deformity. She says she went to get up out of a chair twisted the wrong way and fell right onto the hip. On examination is short and externally rotated she had received from fentanyl prior to arrival gave her an additional amount. No injury to the head neck chest abdomen pelvis and thoracolumbar spine. She is a few medical problems but is pretty stable. Denies being on a blood thinner. X-ray showed comminuted intra-trochanteric fracture of the right hip. I spoke with Dr. Maria L JAIN who was on-call at 00 27 who stated that the patient can be admitted to the hospital he was seen in the morning. Asked him if he wanted traction he said no. Gave the patient additional pain medication Velez catheter is in place. She has a nonspecific 20,000 white count with nothing else associated to it will get her admitted to the hospital. 03/09/17 01:13 (MATIAS LECHUGA) - Vital Signs Vital signs: Temp Pulse Resp BP Pulse Ox 98.4 F 99 20 143/91 H 90 L 03/09/17 02:08 03/09/17 02:08 03/09/17 02:08 03/09/17 02:08 03/09/17 02:08 - Laboratory Laboratory results interpreted by me: 03/08/17 03/08/17 23:25 23:25 WBC 20.4 H Lymphocytes % (Manual) 10 L Abs Neuts (Manual) 15.9 H Abs Monocytes (Manual) 2.4 H Chloride 93 L Carbon Dioxide 38 H Glucose 160 H Alkaline Phosphatase 158 H - Consults Dr. Jara Reason for consultation: 03/09/17 00:[address] Jara; he agrees to treat the patient and will evaluate the patient in the morning after she is admitted. (HORACIO SWANSON) Dr. Campbell Reason for consultation: 03/09/17 01:[address] Campbell who admits the patient. (HORACIO SWANSON) Critical Care Note - Critical Care Note Total time excluding time spent on procedures (mins): 65 <MATIAS LECHUGA - Last Filed: 03/09/17 04:31> Discharge <HORACIO SWANSON - Last Filed: 03/09/17 02:47> - Discharge Admitting Provider: Campbell Unit Admitted: Surgical Floor <MATIAS LECHUGA - Last Filed: 03/09/17 04:31> - Discharge Clinical Impression: Acute right comminuted intra-trochanteri Condition: Stable Disposition: ADMITTED INPATIENT Scribe Attestation: 03/09/17 00:28 I personally performed the services described in the documentation reviewed the documentation recorded by my scribe in my presence and it accurately and completely records my words and actions (MATIAS LECHUGA) Scribe Documentation - Scribe Written by Scribe:: Dameon Carey 03/08/17 23:13 acting as scribe for :: Dharmesh <HORACIO SWANSON - Last Filed: 03/09/17 02:47>
[2017-03-08 23:47] LABS: HEMATOCRIT 41.5 % (36.0-47.0); HEMOGLOBIN 13.5 g/dL (12.0-15.5); MEAN CORPUSCULAR HEMOGLOBIN 29.1 pg (27.0-33.4); MEAN CORPUSCULAR HGB CONC 32.6 g/dL (32.0-36.0); MEAN CORPUSCULAR VOLUME 89 fl (80-97); RED BLOOD COUNT 4.66 10^6/uL (3.72-5.28); RED CELL DISTRIBUTION WIDTH 12.8 % (11.5-14.0); WHITE BLOOD COUNT 20.4 10^3/uL (4.0-10.5)
[2017-03-08 23:52] LABS: ALANINE AMINOTRANSFERASE 37 U/L (9-52); ALBUMIN 4.2 g/dL (3.5-5.0); ALKALINE PHOSPHATASE 158 U/L (38-126); ANION GAP 8 (5-19); ASPARTATE AMINO TRANSFERASE 36 U/L (14-36); BILIRUBIN,DIRECT 0.3 mg/dL (0.0-0.4); BILIRUBIN,TOTAL 0.4 mg/dL (0.2-1.3); BLOOD UREA NITROGEN 13 mg/dL (7-20); CALCIUM 9.1 mg/dL (8.4-10.2); CARBON DIOXIDE 38 mmol/L (22-30); CHLORIDE 93 mmol/L (98-107); CREATININE RESULT 0.61 mg/dL (0.52-1.25); GLUCOSE 160 mg/dL (75-110); POTASSIUM 4.6 mmol/L (3.6-5.0); SODIUM 138.8 mmol/L (137-145); TOTAL PROTEIN 7.7 g/dL (6.3-8.2)
[2017-03-09 00:04] LABS: TROPONIN I 0.013 ng/mL
[2017-03-09 00:20] LABS: BASOPHILS % (MANUAL) 0 % (0-2); EOSINOPHILS % (MANUAL) 0 % (0-6); LYMPHOCYTES % (MANUAL) 10 % (13-45); RBC MORPHOLOGY COMMENT NORMO-CYTIC/CHROMIC; TOTAL CELLS COUNTED 100
[2017-03-09] MEDS ORDERED: MORPHINE SULFATE 10 MG/ML INJ IV ONE ×2 (00:26→01:36)
[2017-03-09] MEDS ORDERED: MORPHINE SULFATE 60 MG/60 ML RTUINJ IV PRN ×2 (01:29→08:28)
[2017-03-09] MEDS ORDERED: MORPHINE SULFATE 60 MG/60 ML RTUINJ IV ONE (02:12)
[2017-03-09] MEDS ORDERED: NORMAL SALINE 1000 ML 1,000 ML IV PRN (05:06)
[2017-03-09] MEDS ORDERED: ONDANSETRON 4 MG TAB.RAPDIS PO PRN (05:06)
[2017-03-09] MEDS ORDERED: IPRATROPIUM/ALBUTEROL 0.5-2.5 MG/3 ML AMPUL NEB ONE (05:30)
[2017-03-09] MEDS: PHENYTOIN SODIUM INJ/PF 100 MG/2 ML SDV IV SCH ×3 (06:33→20:27)
[2017-03-09] MEDS: IPRATROPIUM/ALBUTEROL 0.5-2.5 MG/3 ML AMPUL NEB SCH ×5 (08:24→23:44)
--- NOTE | 2017-03-09 08:25 | PDOC H&P ---
History of Present Illness Admission Date/PCP: 03/09/17 05:07 HELIO OCHOA MD Patient complains of: fall R hip History of Present Illness: PRASAD CLAROS is a 66 year old female who fell 2030pm Past Medical History Cardiac Medical History: Reports: Hypertension Denies: Coronary Artery Disease, Myocardial Infarction Pulmonary Medical History: Reports: Bronchitis, Chronic Obstructive Pulmonary Disease (COPD), Pneumonia, Respiratory Failure EENT Medical History: Reports: Nose - allergic rhinitis Neurological Medical History: Reports: Seizures - last 1997 Endocrine Medical History: Reports: None Renal/ Medical History: Reports: None Malignancy Medical History: Reports: None GI Medical History: Reports: Other - polyps Musculoskeltal Medical History: Reports: Arthritis Skin Medical History: Reports: None Psychiatric Medical History: Reports: Depression Traumatic Medical History: Reports: None Hematology: Reports: Anemia - pernicious Infectious Medical History: Reports: None Past Surgical History Past Surgical History: Reports: Appendectomy, Hysterectomy, Orthopedic Surgery - Rmenisectomy Denies: Pacemaker Social History Information Source: Dr. Priest Lives with: Family Smoking Status: Former Smoker Cigarettes Packs Per Day: 1 Number of Years Smokin Last Time Smoked: 2004 Frequency of Alcohol Use: None Hx Recreational Drug Use: No Hx Prescription Drug Abuse: No - Advance Directive Resuscitation Status: Full Code Family History Family History: CAD, CVA, Hypertension, Malignancy Parental Family History Reviewed: Yes Children Family History Reviewed: Yes Sibling(s) Family History Reviewed.: Yes Medication/Allergy Home Medications: Albuterol Sulfate [Ventolin Hfa] 1 - 2 puff IH Q4 PRN 03/09/17 Cetirizine HCl [Zyrtec 10 mg Tablet] 1 tab PO DAILY 03/09/17 Cyanocobalamin (Vitamin B-12) [Vitamin B-12] 2,000 mcg PO DAILY 03/09/17 Escitalopram Oxalate [Lexapro] 20 mg PO DAILY 03/09/17 Felodipine [Felodipine ER] 10 mg PO DAILY 03/09/17 Fluticasone/Salmeterol [Advair 500-50 Diskus 28 Dose] 1 inh IH Q12H 03/09/17 Losartan/Hydrochlorothiazide [Hyzaar 100-25 Tablet] 1 each PO DAILY 03/09/17 Montelukast Sodium [Singulair 10 mg Tablet] 10 mg PO QHS 03/09/17 Phenytoin Sodium Extended [Dilantin 100 mg Capsule.er] 400 mg PO DAILY 03/09/17 Simvastatin [Simvastatin] 40 mg PO QHS 03/09/17 Tiotropium [place] [Spiriva Handihaler 18 mcg/dose (30 Dose)] 1 cap IH DAILY Allergies/Adverse Reactions: No Known Allergies Allergy (Verified 09/25/16 05:30) Review of Systems ROS unobtainable: Due to mental status Physical Exam Vital Signs: Temp Pulse Resp BP Pulse Ox 98.4 F 79 16 118/79 76 L 03/09/17 03:57 03/09/17 07:00 03/09/17 05:40 03/09/17 03:57 03/09/17 03:57 Intake & Output 03/08/17 03/09/17 03/10/17 07:59 07:59 07:59 Intake Total 0 Output Total 0 Balance 0 Weight 142 lb 3.17 oz General appearance: PRESENT: other - stuporous Eye exam: ABSENT: conjunctival injection Mouth exam: PRESENT: moist, neck supple Neck exam: ABSENT: lymphadenopathy, tenderness, thyromegaly, tracheal deviation Respiratory exam: PRESENT: clear to auscultation pooja, prolonged expiratory phas. ABSENT: accessory muscle use Cardiovascular exam: ABSENT: diastolic murmur, irregular rhythm, systolic murmur , tachycardia GI/Abdominal exam: PRESENT: distended. ABSENT: mass, organolmegaly, tenderness Extremities exam: ABSENT: pedal edema Musculoskeletal exam: PRESENT: deformity - R leg shortened & externally rotated Neurological exam: ABSENT: alert Results Laboratory Results: Abnormal - 24 hr 03/08/17 03/08/17 23:25 23:25 WBC 20.4 H Lymphocytes % (Manual) 10 L Abs Neuts (Manual) 15.9 H Abs Monocytes (Manual) 2.4 H Chloride 93 L Carbon Dioxide 38 H Glucose 160 H Alkaline Phosphatase 158 H Impressions: Chest X-Ray 03/08/17 00:00 IMPRESSION: NO ACUTE RADIOGRAPHIC FINDING IN THE CHEST. Hip/Pelvis X-Ray 03/08/17 00:00 IMPRESSION: Comminuted intra trochanteric fracture of the right hip. Assessment & Plan - Diagnosis (1) Closed comminuted intertrochanteric fracture of proximal end of right femur Qualifiers: Encounter type: initial encounter Qualified Code(s): S72.141A - Displaced intertrochanteric fracture of right femur, initial encounter for closed fracture Is this a current diagnosis for this admission?: YesPlan: consult Dr Jara. 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
[2017-03-09] MEDS ORDERED: TIOTROPIUM BROMIDE DPI 5 CAP/KIT (18 MCG/CAP) IH SCH (10:00)
[2017-03-09] MEDS: FLUTICASONE/SALMETEROL DISKUS 500-50 MCG/DOSE IH SCH ×2 (10:14→22:35)
[2017-03-09] MEDS ORDERED: CEFAZOLIN INJ 1 GM VIAL ONE (16:36)
[2017-03-09] MEDS ORDERED: PROPOFOL INJ 200 MG/20 ML VIAL IV ONE (17:21)
[2017-03-09] MEDS ORDERED: MIDAZOLAM 2 MG/2 ML INJ ONE (17:21)
[2017-03-09] MEDS ORDERED: ONDANSETRON HCL INJ/PF 4 MG/2 ML SDV ONE (17:21)
[2017-03-09] MEDS ORDERED: KETAMINE HCL INJ 500 MG/10 ML VIAL ONE (17:21)
--- NOTE | 2017-03-09 17:54 | PDOC CONSULTATION ---
History of Present Illness Admission Date/PCP: 03/09/17 05:07 HELIO OCHOA MD History of Present Illness: PRASAD CLAROS is a 66 year old female that got up out of the chair and fell onto the hardwood floor on her right side on 03/08/18. Patient complains of pain to her right hip. Patient has had fractures in the past. Patient was brought to emergency room where x-rays demonstrated fracture. Patient states her pain was significant with range of motion and unable to weight-bear. Patient's pain did improve after IV pain medication in the emergency room. Current pain /10. Denies numbness or tingling. Patient poor historian likely secondary to pain medication. Past Medical History Cardiac Medical History: Reports: Hypertension Denies: Coronary Artery Disease, Myocardial Infarction Pulmonary Medical History: Reports: Asthma, Bronchitis, Chronic Obstructive Pulmonary Disease (COPD), Pneumonia, Respiratory Failure EENT Medical History: Reports: Nose - allergic rhinitis Neurological Medical History: Reports: Seizures - last 1997 Endocrine Medical History: Reports: None Denies: Diabetes Mellitus Type 2 Renal/ Medical History: Reports: None Malignancy Medical History: Reports: None GI Medical History: Reports: Other - polyps Musculoskeltal Medical History: Reports: Arthritis Skin Medical History: Reports: None Psychiatric Medical History: Reports: Depression Traumatic Medical History: Reports: None Hematology: Reports: Anemia - pernicious Infectious Medical History: Reports: None Past Surgical History Past Surgical History: Reports: Appendectomy, Hysterectomy, Orthopedic Surgery - Rmenisectomy Denies: Pacemaker Social History Lives with: Family Smoking Status: Former Smoker Cigarettes Packs Per Day: 1 Number of Years Smokin Last Time Smoked: 2004 Frequency of Alcohol Use: None Hx Recreational Drug Use: No Hx Prescription Drug Abuse: No - Advance Directive Resuscitation Status: Full Code Family History Family History: CAD, CVA, Hypertension, Malignancy Parental Family History Reviewed: No Children Family History Reviewed: No Sibling(s) Family History Reviewed.: No Medication/Allergy Home Medications: Albuterol Sulfate [Proair HFA] 2 puff IH QIDP PRN 03/09/17 Cetirizine HCl [Zyrtec 10 mg Tablet] 10 mg PO DAILY 03/09/17 Escitalopram Oxalate [Lexapro] 20 mg PO DAILY 03/09/17 Felodipine [Plendil] 10 mg PO DAILY 07/18/17 Fluticasone/Salmeterol [Advair 500-50 Diskus 14 Dose/Diskus] 1 puff IH Q12 03/09 Montelukast Sodium [Singulair 10 mg Tablet] 10 mg PO QPM 03/09/17 Omeprazole 20 mg PO DAILY 03/09/17 Phenytoin Sodium Extended [Dilantin 100 mg Capsule.er] 400 mg PO DAILY 03/09/17 Simvastatin 40 mg PO QPM 03/09/17 Tiotropium [place] [Spiriva Respimat] 2 puff IH DAILY 03/09/17 Allergies/Adverse Reactions: No Known Allergies Allergy (Verified 09/25/16 05:30) Review of Systems ROS unobtainable: Due to mental status Physical Exam Vital Signs: Temp Pulse Resp BP Pulse Ox 97.8 F 87 18 136/63 H 100 03/09/17 12:48 03/09/17 14:00 03/09/17 12:48 03/09/17 12:48 03/09/17 12:48 Intake & Output 03/08/17 03/09/17 03/10/17 06:59 06:59 06:59 Intake Total 0 150 Output Total 0 Balance 0 150 Weight 64.5 kg General appearance: PRESENT: no acute distress, disheveled, thin Eye exam: PRESENT: conjunctiva pink Ear exam: PRESENT: TM's normal bilaterally Mouth exam: PRESENT: dry mucosa Teeth exam: PRESENT: poor dentation Respiratory exam: PRESENT: unlabored, wheezes Pulses: PRESENT: +1 pedal pulses bilateral Vascular exam: PRESENT: normal capillary refill GI/Abdominal exam: PRESENT: soft Musculoskeletal exam: PRESENT: other - Right lower extremity shortened and externally rotated. Intact plantar flexion/dorsiflexion however weak likely secondary to mentation. Cap refill less than 2 seconds no apparent sensory deficits. No calf tenderness. Neurological exam: PRESENT: alert, altered, awake, oriented to person, oriented to place, oriented to situation Psychiatric exam: PRESENT: appropriate affect Results Impressions: Chest X-Ray 03/08/17 00:00 IMPRESSION: NO ACUTE RADIOGRAPHIC FINDING IN THE CHEST. Hip/Pelvis X-Ray 03/08/17 00:00 IMPRESSION: Comminuted intra trochanteric fracture of the right hip. Status: Image reviewed by me - I have reviewed patient's radiographs which demonstrate comminuted proximal femur fracture with extension into the subtrochanteric region. Notable osteopenia. Assessment & Plan - Diagnosis (1) Closed comminuted intertrochanteric fracture of proximal end of right femur Qualifiers: Encounter type: initial encounter Qualified Code(s): S72.141A - Displaced intertrochanteric fracture of right femur, initial encounter for closed fracture Is this a current diagnosis for this admission?: YesPlan: I have reviewed patient's radiographs demonstrate comminuted intertrochanteric fracture. Patient has multiple comorbidities including pulmonary disease I discussed the case with her primary care physician Dr. Ochoa but given his comorbidities the concern is further bed rest would likely exacerbate her current pulmonary condition and given the fact she was a community ambulator with good mentation prior to her injury it is reasonable to proceed with operative intervention. I have discussed patient's comorbidities and risks of the surgical procedure with the patient's family including the son and after discussing these treatment options the joint decision was made to proceed with right hip intramedullary nail. The patient's family consented for the procedure. Risks include anesthetic complications, excessive bleeding, infection, injury to surrounding nerves, vessels and tendons, bruising, healing difficulties, scar formation, posttraumatic arthritis and any unforseen complication.
[2017-03-09] MEDS ORDERED: DEXTROSE 40% GEL 15 GM TUBE PO PRN ×2 (19:10)
[2017-03-09] MEDS ORDERED: DEXTROSE 50%-WATER 25 GM/50 ML DISP.SYRIN IV PRN ×2 (19:10)
[2017-03-09] MEDS ORDERED: GLUCAGON,HUMAN RECOMB 1 MG INJ SUBCUT PRN (19:10)
--- NOTE | 2017-03-09 19:16 | Operative Report ---
Operative Report DATE OF SURGERY: 03/09/17 PREOPERATIVE DIAGNOSIS: Right Peritrochanteric Hip Fracture POSTOPERATIVE DIAGNOSIS: Same OPERATION: Right Cephalomedullary Nail Peritrochanteric Hip Fracture SURGEON: KRISTOFER ODELL ANESTHESIA: Spinal COMPLICATIONS: None ESTIMATED BLOOD LOSS: 50cc PROCEDURE: Indication for above procedure: 66-year-old female who sustained a fall onto her right hip. Patient was brought to the emergency room where x-rays demonstrated right peritrochanteric fracture. On consultation I discussed with patient and family risks and benefits of operative versus nonoperative intervention. After discussing the risks and benefits the joint decision was made to proceed with operative treatment. Procedure detail: Patient was seen and evaluated in the preoperative holding area. The right lower extremity was initialized and marked. Patient received 2 g Ancef IV for bacterial prophylaxis. Patient was taken back to the operative room where transferred operative table. Patient was placed under spinal anesthesia. Once adequate anesthetized he was carefully placed onto the hip positioner the nonoperative lower extremity and bilateral upper extremities were carefully padded and the peroneal nerve was padded and on the nonoperative extremity. The operative extremity was placed in a traction along with adduction and internal rotation. A surgical team debriefing was performed ensuring all instrumentation was available, the surgical procedure was discussed with possible concerns reviewed. A timeout was done identifying correct patient, procedure and extremity everyone in attendance agree with this and verbalized no concerns. Reduction maneuver with the use of the hip traction table were done and C-arm fluoroscopy was used to confirm optimal reduction of the intertrochanteric fracture. Once this was confirmed the lower extremity was prepped with chlor prep and draped in a sterile fashion. At this point a small skin incision was made proximal to the greater trochanter. The guidewire was placed onto the tip of the trochanter advanced down to the level of the lesser trochanter. AP and lateral fluoroscopy was used to confirm appropriate placement of the guidewire. The skin incision was then extended and the underlying fascia opened up carefully to the tip of the greater trochanter. The entry reamer was then used and advanced to the level of the lesser trochanter. The appropriate size nail was then measured to be 380 mm. Given the patient's significant osteopenia I do not feel reaming was necessary and thus a long gamma nail was placed. Then turned my attention to the compression screw fixation in the femoral head. The trochars were advanced to the skin, a skin incision was made, careful dissection down to the fascia to the lateral femoral cortex was then partaken. The guidewire was then used and placed in the center center position with the tip apex distance less than 25 mm. Once this position was obtained the size of the compression screw was measured. AP and lateral fluoroscopy used to confirm appropriate placement of our guide wire. The step reamer was used to drill up through the femoral neck and head. I then carefully advanced the compression screw into position. AP and lateral fluoroscopy was done to confirm appropriate placement of the compression screw this was then locked into position proximally. The compression screw was then disengaged from its mounting device and the guidewire was removed. Lastly proceeded with locking of the nail distally. Perfect circles were obtained and a skin incision was made. Careful dissection done with a hemostat to the lateral cortex of the femur. I then drilled the near and far cortices. Measured the appropriate sized distal locking screw and secured it into position. This step was repeated in the oblong hole. At this point AP/lateral and oblique views of the proximal and distal aspect of the nail were taken confirming appropriate placement of the compression screw, distal locking screw and intramedullary nail. The wound was irrigated with normal saline. The deep tissues were closed with 0 Vicryl suture, subcutaneous tissues were closed with 3-0 Monocryl suture. The skin was closed a running 3-0 subcuticular Monocryl suture and reinforced with Dermabond & Steri-Strips. A dressing was placed. Sponge counts, instrument counts and needle counts were correct. Patient was then transferred from the operating room table to the operating room stretcher. The was no intraoperative complications patient tolerated procedure well was stable to PACU. Implants used: Marshal 11 x 380 mm 125 Long Gamma Nail with a 90 mm compression screw Postoperative plan: Patient will begin physical therapy on postop day #1 with Heparin for DVT prophylaxis.
--- NOTE | 2017-03-09 19:20 | RADIOLOGY REPORT (SQ) ---
EXAM DESCRIPTION: HIP RIGHT AP/LATERAL COMPLETED DATE/TIME: 03/09/2017 7:09 pm REASON FOR STUDY: RIGHT HIP NAILING COMPARISON: None. FLUOROSCOPY TIME: 1.2 minutes 4 images saved to PACS. TECHNIQUE: Intra-operative images acquired during surgical procedure to evaluate progress. NUMBER OF IMAGES: 4 images LIMITATIONS: None. FINDINGS: Fluoroscopic images were obtained during performance of a right hip pinning. Orthopedic n ail and intramedullary alberto are identified in position IMPRESSION: IMAGE(S) OBTAINED DURING PROCEDURE. COMMENT: Quality ID [id number]: Final reports for procedures using fluoroscopy that document radiation exp osure indices, or exposure time and number of fluorographic images (if radiation exposure indices are not available) Please consult full operative report of the attending physician for description of the procedure. TECHNICAL DOCUMENTATION: JOB ID: [id number] [employer]- All Rights Reserved
--- NOTE | 2017-03-09 19:21 | RADIOLOGY REPORT (SQ) ---
EXAM DESCRIPTION: NO CHG FLUORO COMPLETE DATE/TIME: 03/09/2017 7:09 pm REASON FOR STUDY: RIGHT HIP NAILING FINDINGS: Please see combined report for performance of procedure and radiologic supervision and int erpretation. IMPRESSION: Please see combined report for performance of procedure and radiologic supervision and i nterpretation.
[2017-03-09 20:51] LABS: HEMATOCRIT 34.5 % (36.0-47.0); HGB HCT DIFFERENCE -1.5; MEAN CORPUSCULAR HEMOGLOBIN 28.3 pg (27.0-33.4); MEAN CORPUSCULAR HGB CONC 31.8 g/dL (32.0-36.0); MEAN CORPUSCULAR VOLUME 89 fl (80-97); RED BLOOD COUNT 3.88 10^6/uL (3.72-5.28); RED CELL DISTRIBUTION WIDTH 13.3 % (11.5-14.0); WHITE BLOOD COUNT 26.8 10^3/uL (4.0-10.5)
[2017-03-09 20:56] LABS: PARTIAL THROMBOPLASTIN TIME 28.5 SEC (23.5-35.8); PROTHROMBIN TIME 13.5 SEC (11.4-15.4)
[2017-03-09 21:10] LABS: CREATININE RESULT 1.13 mg/dL (0.52-1.25)
[2017-03-09] MEDS: HEPARIN SOD (PORCINE) 5,000 UNIT/ML 1 ML SYRINGE SUBCUT SCH (22:36)
[2017-03-10] MEDS: PHENYTOIN SODIUM INJ/PF 100 MG/2 ML SDV IV SCH (00:53)
[2017-03-10] MEDS: CEFAZOLIN 2 GM/D5W RTU 50 ML IV SCH ×5 (00:53→23:02)
[2017-03-10] MEDS: IPRATROPIUM/ALBUTEROL 0.5-2.5 MG/3 ML AMPUL NEB SCH ×5 (04:20→20:32)
[2017-03-10] MEDS: HEPARIN SOD (PORCINE) 5,000 UNIT/ML 1 ML SYRINGE SUBCUT SCH ×3 (05:26→21:11)
[2017-03-10 05:50] LABS: HEMATOCRIT 30.2 % (36.0-47.0); HEMOGLOBIN 9.7 g/dL (12.0-15.5); HGB HCT DIFFERENCE -1.1; MEAN CORPUSCULAR HEMOGLOBIN 28.5 pg (27.0-33.4); MEAN CORPUSCULAR HGB CONC 32.1 g/dL (32.0-36.0); MEAN CORPUSCULAR VOLUME 89 fl (80-97); RED CELL DISTRIBUTION WIDTH 13.3 % (11.5-14.0); WHITE BLOOD COUNT 19.6 10^3/uL (4.0-10.5)
[2017-03-10 06:25] LABS: APPEARANCE,URINE SLIGHTLY-CLOUDY; BILIRUBIN,URINE NEGATIVE (NEGATIVE); GLUCOSE, URINE NEGATIVE (NEGATIVE); KETONES,URINE NEGATIVE (NEGATIVE); LEUKOCYTE ESTERASE,URINE TRACE (NEGATIVE); NITRITE,URINE NEGATIVE (NEGATIVE); PROTEIN,URINE 30 mg/dL (NEGATIVE); URINE SPECIFIC GRAVITY 1.027; UROBILINOGEN,URINE NEGATIVE mg/dL (<2.0)
[2017-03-10 06:25] LABS: ANION GAP 8 (5-19); BLOOD UREA NITROGEN 26 mg/dL (7-20); CALCIUM 7.9 mg/dL (8.4-10.2); CARBON DIOXIDE 32 mmol/L (22-30); CHLORIDE 96 mmol/L (98-107); GLUCOSE 149 mg/dL (75-110); POTASSIUM 5.2 mmol/L (3.6-5.0); SODIUM 135.5 mmol/L (137-145)
--- NOTE | 2017-03-10 08:10 | PDOC PROGRESS REPORT ---
Subjective Progress Note for:: 03/10/17 Subjective:: less pain pOp Physical Exam Vital Signs: Temp Pulse Resp BP Pulse Ox 98.6 F 96 20 144/84 H 98 03/10/17 03:36 03/10/17 04:20 03/10/17 04:20 03/10/17 03:36 03/10/17 04:20 Intake & Output 03/09/17 03/10/17 03/11/17 07:59 07:59 07:59 Intake Total 0 2300 Output Total 0 530 Balance 0 1770 Weight 142 lb 3.17 oz 158 lb 15.253 oz General appearance: PRESENT: no acute distress Respiratory exam: PRESENT: clear to auscultation pooja Cardiovascular exam: ABSENT: diastolic murmur, irregular rhythm, systolic murmur GI/Abdominal exam: ABSENT: mass, organolmegaly, tenderness Extremities exam: ABSENT: pedal edema Neurological exam: PRESENT: oriented to situation Psychiatric exam: PRESENT: appropriate affect Results Laboratory Results: 03/10/17 05:03 03/10/17 05:03 Abnormal - 24 hr 03/09/17 03/09/17 03/10/17 20:25 20:25 05:03 WBC 26.8 H RBC Hgb 11.0 L D Hct 34.5 L MCHC 31.8 L Sodium 135.5 L Potassium 5.2 H Chloride 96 L Carbon Dioxide 32 H BUN 26 H Est GFR ( Amer) 59 L Est GFR (Non-Af Amer) 48 L Glucose 149 H Calcium 7.9 L Urine Protein Urine Blood Ur Leukocyte Esterase 03/10/17 03/10/17 05:03 05:30 WBC 19.6 H RBC 3.40 L Hgb 9.7 L Hct 30.2 L MCHC Sodium Potassium Chloride Carbon Dioxide BUN Est GFR ( Amer) Est GFR (Non-Af Amer) Glucose Calcium Urine Protein 30 H Urine Blood SMALL H Ur Leukocyte Esterase TRACE H Impressions: Chest X-Ray 03/08/17 00:00 IMPRESSION: NO ACUTE RADIOGRAPHIC FINDING IN THE CHEST. Fluoroscopy 03/09/17 00:00 IMPRESSION: Please see combined report for performance of procedure and radiologic supervision and interpretation. Hip/Pelvis X-Ray 03/09/17 00:00 IMPRESSION: IMAGE(S) OBTAINED DURING PROCEDURE. Assessment & Plan - Diagnosis (1) Closed comminuted intertrochanteric fracture of proximal end of right femur Qualifiers: Encounter type: initial encounter Qualified Code(s): S72.141A - Displaced intertrochanteric fracture of right femur, initial encounter for closed fracture Is this a current diagnosis for this admission?: YesPlan: pod1 ok on pca0.5mg/h bolus0.25mg (2) Panlobular emphysema Is this a current diagnosis for this admission?: YesPlan: sat ok on nonrebreather (3) ROBERTO (acute kidney injury) Is this a current diagnosis for this admission?: YesPlan: more ivf - Inpatient Certification Medical Necessity: Significant Comorbidiites Make Outpatient Treatment Too Risky , Need For IV Fluids, Need for Nebulizer Therapy and Monitoring of Response, Need for Pain Control, Need for Surgery, Risk of Complication if Not Cared For in Hospital
[2017-03-10] MEDS ORDERED: (PENDING PHARMACY ID) (Tiotropium Bromide [Spiriva Respimat] 2 PUFF) IH SCH (10:00)
[2017-03-10] MEDS ORDERED: TIOTROPIUM BROMIDE DPI 5 CAP/KIT (18 MCG/CAP) IH SCH (10:00)
[2017-03-10] MEDS ORDERED: BUDESONIDE NEB 0.5 MG/2 ML AMPUL NEB ONE (10:00)
[2017-03-10] MEDS ORDERED: CETIRIZINE 10 MG TABLET PO SCH (10:00)
--- NOTE | 2017-03-10 10:47 | PDOC CONSULTATION ---
Consultation Consult Date: 03/10/17 Attending physician:: HELIO OCHOA Consult reason:: CHRONIC RESP FAILURE History of Present Illness Admission Date/PCP: 03/09/17 05:07 HELIO OCHOA MD History of Present Illness: 66-year-old female who the hospitalist to follow for hip fracture she admits to shortness of breath as well as dips and exertion with activities of daily living she was admits to having oxygen at home. He denies hemoptysis her PPD status is unknown she admits to coughing but would not quantify the amount is usually clear to yellow she states she had a history of asthma as a child and she admits that she was exposed large amounts of passive smoke as a child as well as an adult. She has smoked for 45 years 1 pack a day and is currently smoking a half a pack per day she has no significant occupational exposure to potential respiratory talk toxins. She has no pets no recent travel. She denies angina-like chest pain sleeps on one pillow and denies PND nocturnal cough or edema she admits to snoring restless sleep nocturia at least one time a night unrestful sleep and daytime somnolence. Past Medical History Cardiac Medical History: Reports: Hypertension Denies: Coronary Artery Disease, Myocardial Infarction Pulmonary Medical History: Reports: Asthma, Bronchitis, Chronic Obstructive Pulmonary Disease (COPD), Pneumonia, Respiratory Failure EENT Medical History: Reports: Nose - allergic rhinitis Neurological Medical History: Reports: Seizures - last 1997 Endocrine Medical History: Reports: None Denies: Diabetes Mellitus Type 2 Renal/ Medical History: Reports: None Malignancy Medical History: Reports: None GI Medical History: Reports: Other - polyps Musculoskeltal Medical History: Reports: Arthritis Skin Medical History: Reports: None Psychiatric Medical History: Reports: Depression Traumatic Medical History: Reports: None Hematology: Reports: Anemia - pernicious Infectious Medical History: Reports: None Past Surgical History Past Surgical History: Reports: Appendectomy, Cholecystectomy, Hysterectomy, Orthopedic Surgery - Rmenisectomy Denies: Pacemaker Social History Information Source: Patient Lives with: Family Smoking Status: Current Every Day Smoker Cigarettes Packs Per Day: 1 Number of Years Smokin Last Time Smoked: 2004 Passive smoke exposure as: Both Frequency of Alcohol Use: None Hx Recreational Drug Use: No Hx Prescription Drug Abuse: No Do you have pets?: No Have you had any respiratory illnesses as a child?: Yes Have you been exposed to any sick contacts recently?: No Have you had any recent respiratory illnesses?: No Have you travelled outside of [place] in the past 12 months?: Yes - [place] for 2 weeks - Advance Directive Resuscitation Status: Full Code Family History Family History: CAD, CVA, Hypertension, Malignancy Parental Family History Reviewed: Yes Children Family History Reviewed: Yes Sibling(s) Family History Reviewed.: Yes Medication/Allergy Home Medications: Albuterol Sulfate [Proair HFA] 2 puff IH QIDP PRN 03/09/17 Cetirizine HCl [Zyrtec 10 mg Tablet] 10 mg PO DAILY 03/09/17 Escitalopram Oxalate [Lexapro] 20 mg PO DAILY 03/09/17 Felodipine [Plendil] 10 mg PO DAILY 03/09/17 Fluticasone/Salmeterol [Advair 500-50 Diskus 14 Dose/Diskus] 1 puff IH Q12 03/09 Montelukast Sodium [Singulair 10 mg Tablet] 10 mg PO QPM 03/09/17 Omeprazole 20 mg PO DAILY 03/09/17 Phenytoin Sodium Extended [Dilantin 100 mg Capsule.er] 400 mg PO DAILY 03/09/17 Simvastatin 40 mg PO QPM 03/09/17 Tiotropium [place] [Spiriva Respimat] 2 puff IH DAILY 03/09/17 Allergies/Adverse Reactions: No Known Allergies Allergy (Verified 09/25/16 05:30) Review of Systems Gastrointestinal: PRESENT: constipation, diarrhea Physical Exam Vital Signs: Temp Pulse Resp BP Pulse Ox 98.6 F 96 20 144/84 H 98 03/10/17 03:36 03/10/17 04:20 03/10/17 04:20 03/10/17 03:36 03/10/17 04:20 Intake & Output 03/09/17 03/10/17 03/11/17 06:59 06:59 06:59 Intake Total 0 2300 Output Total 0 530 Balance 0 1770 Weight 64.5 kg 72.1 kg General appearance: PRESENT: no acute distress, cooperative, disheveled, well- developed Head exam: PRESENT: atraumatic, normocephalic Eye exam: PRESENT: conjunctiva pale, EOMI Mouth exam: PRESENT: dry mucosa, neck supple, tongue midline Teeth exam: PRESENT: poor dentation Neck exam: ABSENT: carotid bruit, JVD, lymphadenopathy, thyromegaly Respiratory exam: PRESENT: decreased breath sounds, prolonged expiratory phas, rales, rhonchi, symmetrical, unlabored, wheezes Cardiovascular exam: PRESENT: RRR, +S1, +S2 Pulses: PRESENT: normal radial pulses GI/Abdominal exam: PRESENT: normal bowel sounds, soft. ABSENT: distended, guarding, mass, organolmegaly, rebound, tenderness Rectal exam: PRESENT: deferred Gentrourinary exam: PRESENT: indwelling catheter Neurological exam: PRESENT: awake Psychiatric exam: PRESENT: unusual affect Skin exam: PRESENT: dry, warm Results Laboratory Results: 03/10/17 05:03 03/10/17 05:03 03/09/17 03/09/17 03/10/17 20:25 20:25 05:03 WBC 26.8 H RBC 3.88 Hgb 11.0 L D Hct 34.5 L MCV 89 MCH 28.3 MCHC 31.8 L RDW 13.3 Plt Count 241 Sodium 135.5 L Potassium 5.2 H Chloride 96 L Carbon Dioxide 32 H Anion Gap 8 BUN 26 H Creatinine 1.13 0.90 Est GFR ( Amer) 59 L > 60 Est GFR (Non-Af Amer) 48 L > 60 Glucose 149 H Calcium 7.9 L Urine Color Urine Appearance Urine pH Ur Specific [place] Urine Protein Urine Glucose (UA) Urine Ketones Urine Blood Urine Nitrite Ur Leukocyte Esterase Urine WBC (Auto) Urine RBC (Auto) 03/10/17 03/10/17 05:03 05:30 WBC 19.6 H RBC 3.40 L Hgb 9.7 L Hct 30.2 L MCV 89 MCH 28.5 MCHC 32.1 RDW 13.3 Plt Count 203 Sodium Potassium Chloride Carbon Dioxide Anion Gap BUN Creatinine Est GFR ( Amer) Est GFR (Non-Af Amer) Glucose Calcium Urine Color YELLOW Urine Appearance SLIGHTLY-CLOUDY Urine pH 5.0 Ur Specific [place] 1.027 Urine Protein 30 H Urine Glucose (UA) NEGATIVE Urine Ketones NEGATIVE Urine Blood SMALL H Urine Nitrite NEGATIVE Ur Leukocyte Esterase TRACE H Urine WBC (Auto) 18 Urine RBC (Auto) 10 Impressions: Chest X-Ray 03/08/17 00:00 IMPRESSION: NO ACUTE RADIOGRAPHIC FINDING IN THE CHEST. Fluoroscopy 03/09/17 00:00 IMPRESSION: Please see combined report for performance of procedure and radiologic supervision and interpretation. Hip/Pelvis X-Ray 03/09/17 00:00 IMPRESSION: IMAGE(S) OBTAINED DURING PROCEDURE. Assessment & Plan - Diagnosis (1) Closed comminuted intertrochanteric fracture of proximal end of right femur Qualifiers: Encounter type: initial encounter Qualified Code(s): S72.141A - Displaced intertrochanteric fracture of right femur, initial encounter for closed fracture Is this a current diagnosis for this admission?: Yes (2) Panlobular emphysema Is this a current diagnosis for this admission?: YesPlan: ABG CXR HHN FOR LABA;LAMA AND ICCS (3) Acute and chronic respiratory failure with hypercapnia Is this a current diagnosis for this admission?: Yes
--- NOTE | 2017-03-10 10:54 | RADIOLOGY REPORT (SQ) ---
EXAM DESCRIPTION: CHEST SINGLE VIEW COMPLETED DATE/TIME: 03/10/2017 10:44 am REASON FOR STUDY: copd COMPARISON: 03/08/2017 EXAM PARAMETERS: NUMBER OF VIEWS: One view. TECHNIQUE: Single frontal radiographic view of the chest acquired. RADIATION DOSE: NA LIMITATIONS: None. FINDINGS: LUNGS AND PLEURA: No opacities, masses or pneumothorax. No pleural effusion. The previous ly described chronic appearing changes are stable. MEDIASTINUM AND HILAR STRUCTURES: No masses. Contour normal. HEART AND VASCULAR STRUCTURES: Heart normal in size. Normal vasculature. BONES: No acute findings. HARDWARE: None in the chest. OTHER: No other significant finding. IMPRESSION: No significant interval change. No acute findings. Other findings as noted above. TECHNICAL DOCUMENTATION: JOB ID: [id number]
[2017-03-10] MEDS: PHENYTOIN SODIUM EXTENDED 100 MG CAPSULE PO SCH (11:50)
[2017-03-10] MEDS: ESCITALOPRAM OXALATE 10 MG TABLET PO SCH (11:51)
[2017-03-10 13:11] LABS: ARTERIAL BLOOD BASE EXCESS 3.9 mmol/L; ARTERIAL BLOOD O2 SATURATION 98.3 % (94-98)
[2017-03-10] MEDS: SIMVASTATIN 40 MG TABLET PO SCH (19:02)
[2017-03-10] MEDS: MONTELUKAST SODIUM 10 MG TABLET PO SCH (19:02)
[2017-03-10] MEDS: ACETYLCYSTEINE 20% SOLN 800 MG/4 ML VIAL.NEB NEB SCH (20:32)
[2017-03-10] MEDS: BUDESONIDE NEB 0.5 MG/2 ML AMPUL NEB SCH (20:34)
[2017-03-10] MEDS: RINGERS SOLUTION,LACTATED 1,000 ML IV PRN (20:50)
[2017-03-10] MEDS: FAMOTIDINE 20 MG TABLET PO SCH (21:12)
[2017-03-11] MEDS: IPRATROPIUM/ALBUTEROL 0.5-2.5 MG/3 ML AMPUL NEB SCH ×6 (00:18→20:47)
[2017-03-11] MEDS: RINGERS SOLUTION,LACTATED 1,000 ML IV PRN (05:30)
[2017-03-11] MEDS: CEFAZOLIN 2 GM/D5W RTU 50 ML IV SCH ×2 (05:30→12:13)
[2017-03-11] MEDS: HEPARIN SOD (PORCINE) 5,000 UNIT/ML 1 ML SYRINGE SUBCUT SCH ×3 (05:31→21:50)
[2017-03-11 06:29] LABS: ANION GAP 6 (5-19); BLOOD UREA NITROGEN 25 mg/dL (7-20); CARBON DIOXIDE 33 mmol/L (22-30); CHLORIDE 91 mmol/L (98-107); GLUCOSE 131 mg/dL (75-110); POTASSIUM 5.1 mmol/L (3.6-5.0); SODIUM 129.5 mmol/L (137-145)
[2017-03-11 06:37] LABS: HEMATOCRIT 25.5 % (36.0-47.0); HEMOGLOBIN 8.3 g/dL (12.0-15.5); HGB HCT DIFFERENCE -0.6; MEAN CORPUSCULAR HEMOGLOBIN 28.4 pg (27.0-33.4); MEAN CORPUSCULAR HGB CONC 32.5 g/dL (32.0-36.0); MEAN CORPUSCULAR VOLUME 88 fl (80-97); RED BLOOD COUNT 2.91 10^6/uL (3.72-5.28); WHITE BLOOD COUNT 13.4 10^3/uL (4.0-10.5)
[2017-03-11] MEDS ORDERED: ONDANSETRON 4 MG TAB.RAPDIS PO PRN (07:13)
[2017-03-11] MEDS: ACETYLCYSTEINE 20% SOLN 800 MG/4 ML VIAL.NEB NEB SCH ×2 (08:23→20:46)
[2017-03-11] MEDS: BUDESONIDE NEB 0.5 MG/2 ML AMPUL NEB SCH ×2 (08:25→20:47)
--- NOTE | 2017-03-11 08:34 | PDOC PROGRESS REPORT ---
Subjective Progress Note for:: 03/11/17 Subjective:: stuporous on bipap Physical Exam Vital Signs: Temp Pulse Resp BP Pulse Ox 97.4 F 98 26 H 139/61 H 98 03/11/17 07:53 03/11/17 07:53 03/11/17 07:53 03/11/17 07:53 03/11/17 07:53 Intake & Output 03/10/17 03/11/17 03/12/17 07:59 07:59 07:59 Intake Total 2300 2040 Output Total 530 550 Balance 1770 1490 Weight 158 lb 15.253 oz 180 lb 15.992 oz Respiratory exam: PRESENT: clear to auscultation pooja Cardiovascular exam: ABSENT: diastolic murmur, irregular rhythm, systolic murmur GI/Abdominal exam: ABSENT: mass, organolmegaly, tenderness Extremities exam: ABSENT: pedal edema Results Laboratory Results: 03/11/17 04:06 03/11/17 04:06 03/10/17 03/11/17 03/11/17 12:46 04:06 04:06 WBC 13.4 H RBC 2.91 L Hgb 8.3 L Hct 25.5 L MCV 88 MCH 28.4 MCHC 32.5 RDW 13.0 Plt Count 165 Carbonic Acid 2.16 H HCO3/H2CO3 Ratio 14:1 ABG pH 7.27 L ABG pCO2 71.8 H* ABG pO2 139.4 H ABG HCO3 32.2 H ABG O2 Saturation 98.3 H ABG Base Excess 3.9 FiO2 15L Sodium 129.5 L Potassium 5.1 H Chloride 91 L Carbon Dioxide 33 H Anion Gap 6 BUN 25 H Creatinine 0.70 Est GFR ( Amer) > 60 Est GFR (Non-Af Amer) > 60 Glucose 131 H Calcium 8.0 L Impressions: Fluoroscopy 03/09/17 00:00 IMPRESSION: Please see combined report for performance of procedure and radiologic supervision and interpretation. Hip/Pelvis X-Ray 03/09/17 00:00 IMPRESSION: IMAGE(S) OBTAINED DURING PROCEDURE. Chest X-Ray 03/10/17 00:00 IMPRESSION: No significant interval change. No acute findings. Other findings as noted above. Assessment & Plan - Diagnosis (1) Closed comminuted intertrochanteric fracture of proximal end of right femur Qualifiers: Encounter type: initial encounter Qualified Code(s): S72.141A - Displaced intertrochanteric fracture of right femur, initial encounter for closed fracture Is this a current diagnosis for this admission?: YesPlan: stop morphine (2) Panlobular emphysema Is this a current diagnosis for this admission?: YesPlan: on duoneb & pulmicort (3) ROBERTO (acute kidney injury) Is this a current diagnosis for this admission?: YesPlan: improved on ivf (4) Acute blood loss as cause of postoperative anemia Is this a current diagnosis for this admission?: YesPlan: will need prbc soon - Inpatient Certification Medical Necessity: Significant Comorbidiites Make Outpatient Treatment Too Risky , Need Close Monitoring Due to Risk of Patient Decompensation, Need For Continuous Telemetry Monitoring, Need for Nebulizer Therapy and Monitoring of Response, Need for IV Antibiotics, Risk of Complication if Not Cared For in Hospital
--- NOTE | 2017-03-11 09:34 | Physician Advisory Note ---
Physician Advisor ProgressNote .: [facility] to [facility], I have reviewed the medical record for this patient. Physician Advisor Statement: Excellent documentation of Anemia of Acute Blood Loss due to fx. Simply stating she remains "stuporous on Bipap", when she came in talking, is sufficient to explain why she still needs to be here at present - thanks! Please consider documenting, if you agree: 1. "Acute on chronic hypercapneic & hypoxemic respiratory failure, requires 4L O2 at baseline" (already documented need for Bipap, pt w/sats as low as 76% on 4L, put on NRB O2 10L early on, ...) - Likely reason = ? 2. "Acute on chronic respiratory acidosis on 03/10, suspect due to ____" ( sedatives required for pain control? Possible ZEYAD? ...) 3. "Acute hyponatemia, likely related to " 4. "SIRS, present on admission, due to acute fx" Thanks so much! CK
[2017-03-11 10:33] LABS: ARTERIAL BLOOD BASE EXCESS 8.5 mmol/L; ARTERIAL BLOOD O2 SATURATION 97.2 % (94-98)
[2017-03-11] MEDS: ESCITALOPRAM OXALATE 10 MG TABLET PO SCH (12:06)
[2017-03-11] MEDS: FAMOTIDINE 20 MG TABLET PO SCH ×2 (12:06→21:49)
[2017-03-11] MEDS: PHENYTOIN SODIUM EXTENDED 100 MG CAPSULE PO SCH (12:12)
--- NOTE | 2017-03-11 17:32 | PDOC PROGRESS REPORT ---
Subjective Progress Note for:: 03/11/17 Subjective:: Patient difficult to arouse and currently on a CPAP machine. Family member here bedside with her in the ICU. Physical Exam Vital Signs: Temp Pulse Resp BP Pulse Ox 36.7 C 95 26 H 121/60 100 03/11/17 15:00 03/11/17 15:57 03/11/17 15:57 03/11/17 14:26 03/11/17 15:57 Pulse Oximeter Continuous Start: 03/11/17 09: 36 Freq: RTQ4 Status: Hold Document 03/11/17 12:05 [facility] (Rec: 03/11/17 12:29 [facility] [email or web address]) Pulse Oximetry Assessment Oxygen Saturation (92-100) 99 Oxygen Delivery Method Bi-pap Fraction of Inspired Oxygen (FIO2) 40 Equipment Usage Equipment Standby Continuous SpO2 Machine # -Monitor Intake & Output 03/10/17 03/11/17 03/12/17 06:59 06:59 06:59 Intake Total 2300 2040 Output Total 530 550 315 Balance 1770 1490 -315 Weight 72.1 kg 82.1 kg Adult Front & Back Image: 1 - Dressings are dry clean and intact. Was able to arouse the patient enough to have her move her ankle and toes without any deficits. Results Laboratory Results: 03/11/17 04:06 03/11/17 04:06 03/11/17 03/11/17 03/11/17 04:06 04:06 10:15 WBC 13.4 H RBC 2.91 L Hgb 8.3 L Hct 25.5 L MCV 88 MCH 28.4 MCHC 32.5 RDW 13.0 Plt Count 165 Carbonic Acid 1.64 H HCO3/H2CO3 Ratio 20:1 ABG pH 7.42 ABG pCO2 54.4 H ABG pO2 94.9 ABG HCO3 34.2 H ABG O2 Saturation 97.2 ABG Base Excess 8.5 FiO2 40% Sodium 129.5 L Potassium 5.1 H Chloride 91 L Carbon Dioxide 33 H Anion Gap 6 BUN 25 H Creatinine 0.70 Est GFR ( Amer) > 60 Est GFR (Non-Af Amer) > 60 Glucose 131 H Calcium 8.0 L 03/10/17 05:30 Velez Catheter Urine Culture - Final 6,000 col/ml Impressions: Fluoroscopy 03/09/17 00:00 IMPRESSION: Please see combined report for performance of procedure and radiologic supervision and interpretation. Hip/Pelvis X-Ray 03/09/17 00:00 IMPRESSION: IMAGE(S) OBTAINED DURING PROCEDURE. Chest X-Ray 03/10/17 00:00 IMPRESSION: No significant interval change. No acute findings. Other findings as noted above. Status: Image reviewed by me Assessment & Plan - Plan Summary Plan Summary: Patient is 66-year-old female POD #2 status post gamma nail for right intertrochanteric hip fracture Continue physical therapy Continue pain control Continue DVT prophylaxis Continue care per ICU
[2017-03-11] MEDS: CEFAZOLIN SODIUM 2 GM in DEXTROSE 5%-WATER 100 ML IV SCH (17:56)
[2017-03-11] MEDS: MONTELUKAST SODIUM 10 MG TABLET PO SCH (17:57)
[2017-03-11] MEDS: SIMVASTATIN 40 MG TABLET PO SCH (17:57)
[2017-03-12] MEDS: IPRATROPIUM/ALBUTEROL 0.5-2.5 MG/3 ML AMPUL NEB SCH ×7 (00:09→23:56)
[2017-03-12] MEDS: CEFAZOLIN SODIUM 2 GM in DEXTROSE 5%-WATER 100 ML IV SCH ×5 (00:18→23:18)
[2017-03-12 04:42] LABS: HEMATOCRIT 24.1 % (36.0-47.0); HEMOGLOBIN 8.1 g/dL (12.0-15.5); HGB HCT DIFFERENCE 0.2; MEAN CORPUSCULAR HEMOGLOBIN 29.6 pg (27.0-33.4); MEAN CORPUSCULAR HGB CONC 33.6 g/dL (32.0-36.0); MEAN CORPUSCULAR VOLUME 88 fl (80-97); RED BLOOD COUNT 2.73 10^6/uL (3.72-5.28); RED CELL DISTRIBUTION WIDTH 12.5 % (11.5-14.0); WHITE BLOOD COUNT 15.6 10^3/uL (4.0-10.5)
[2017-03-12 04:48] LABS: ARTERIAL BLOOD BASE EXCESS 7.4 mmol/L; ARTERIAL BLOOD O2 SATURATION 98.4 % (94-98)
[2017-03-12 04:57] LABS: ANION GAP 8 (5-19); BLOOD UREA NITROGEN 16 mg/dL (7-20); CARBON DIOXIDE 33 mmol/L (22-30); CHLORIDE 92 mmol/L (98-107); CREATININE RESULT 0.62 mg/dL (0.52-1.25); GLUCOSE 146 mg/dL (75-110); MAGNESIUM 1.8 mg/dL (1.6-2.3); PHOSPHORUS 2.3 mg/dL (2.5-4.5); POTASSIUM 4.1 mmol/L (3.6-5.0); SODIUM 133.3 mmol/L (137-145)
[2017-03-12 05:03] LABS: PROTHROMBIN TIME 13.9 SEC (11.4-15.4)
[2017-03-12 05:04] LABS: PARTIAL THROMBOPLASTIN TIME 36.5 SEC (23.5-35.8)
[2017-03-12] MEDS: HEPARIN SOD (PORCINE) 5,000 UNIT/ML 1 ML SYRINGE SUBCUT SCH ×3 (05:31→21:22)
[2017-03-12] MEDS ORDERED: NORMAL SALINE 250 ML IV PRN (05:43)
--- NOTE | 2017-03-12 07:03 | RADIOLOGY REPORT (SQ) ---
EXAM DESCRIPTION: CHEST SINGLE VIEW COMPLETED DATE/TIME: 03/12/2017 6:53 am REASON FOR STUDY: acute/chronic resp fail COMPARISON: 03/10/2017. EXAM PARAMETERS: NUMBER OF VIEWS: One view. TECHNIQUE: Single frontal radiographic view of the chest acquired. RADIATION DOSE: NA LIMITATIONS: None. FINDINGS: LUNGS AND PLEURA: Stable chronic scarring. No infiltrates, masses or pneumothorax. No ple ural effusion. MEDIASTINUM AND HILAR STRUCTURES: No masses. Contour normal. HEART AND VASCULAR STRUCTURES: Heart normal in size. Normal vasculature. BONES: No acute findings. HARDWARE: None in the chest. OTHER: No other significant finding. IMPRESSION: NO ACUTE RADIOGRAPHIC FINDING IN THE CHEST. TECHNICAL DOCUMENTATION: JOB ID: [id number]
--- NOTE | 2017-03-12 08:04 | PDOC PROGRESS REPORT ---
Subjective Progress Note for:: 03/12/17 Subjective:: Patient lying in bed comfortably. No issues overnight. Continue to require nonrebreather. Answers questions appropriately. Currently states pain is tolerable. Physical Exam Vital Signs: Temp Pulse Resp BP Pulse Ox 97.6 F 93 32 H 107/65 100 03/12/17 04:00 03/12/17 04:00 03/12/17 06:00 03/12/17 05:30 03/12/17 06:00 Pulse Oximeter Continuous Start: 03/11/17 09: 36 Freq: RTQ4 Status: Hold Document 03/11/17 12:05 [facility] (Rec: 03/11/17 12:29 [facility] [email or web address]) Pulse Oximetry Assessment Oxygen Saturation (92-100) 99 Oxygen Delivery Method Bi-pap Fraction of Inspired Oxygen (FIO2) 40 Equipment Usage Equipment Standby Continuous SpO2 Machine # -Monitor Intake & Output 03/11/17 03/12/17 03/13/17 06:59 06:59 06:59 Intake Total 2040 529 Output Total 550 1275 Balance 1490 -746 Weight 82.1 kg 67.6 kg Musculoskeletal exam: PRESENT: other - Right lower extremity: Dressing clean/dry /intact no erythema or drainage. Minimal thigh swelling. No calf tenderness. Intact plantar flexion/dorsiflexion. No sensory deficits. Results Laboratory Results: 03/12/17 04:28 03/12/17 04:28 03/11/17 03/12/17 03/12/17 10:15 04:28 04:28 WBC 15.6 H RBC 2.73 L Hgb 8.1 L Hct 24.1 L MCV 88 MCH 29.6 MCHC 33.6 RDW 12.5 Plt Count 207 Carbonic Acid 1.64 H HCO3/H2CO3 Ratio 20:1 ABG pH 7.42 ABG pCO2 54.4 H ABG pO2 94.9 ABG HCO3 34.2 H ABG O2 Saturation 97.2 ABG Base Excess 8.5 FiO2 40% Sodium 133.3 L Potassium 4.1 Chloride 92 L Carbon Dioxide 33 H Anion Gap 8 BUN 16 Creatinine 0.62 Est GFR ( Amer) > 60 Est GFR (Non-Af Amer) > 60 Glucose 146 H Calcium 8.0 L Phosphorus 2.3 L Magnesium 1.8 Blood Type Antibody Screen 03/12/17 03/12/17 04:38 06:10 WBC RBC Hgb Hct MCV MCH MCHC RDW Plt Count Carbonic Acid 1.42 H HCO3/H2CO3 Ratio 22:1 ABG pH 7.45 ABG pCO2 47.1 H ABG pO2 116.6 H ABG HCO3 32.1 H ABG O2 Saturation 98.4 H ABG Base Excess 7.4 FiO2 30% Sodium Potassium Chloride Carbon Dioxide Anion Gap BUN Creatinine Est GFR ( Amer) Est GFR (Non-Af Amer) Glucose Calcium Phosphorus Magnesium Blood Type O POSITIVE Antibody Screen NEGATIVE 03/10/17 05:30 Velez Catheter Urine Culture - Final 6,000 col/ml Impressions: Fluoroscopy 03/09/17 00:00 IMPRESSION: Please see combined report for performance of procedure and radiologic supervision and interpretation. Hip/Pelvis X-Ray 03/09/17 00:00 IMPRESSION: IMAGE(S) OBTAINED DURING PROCEDURE. Chest X-Ray 03/12/17 06:00 IMPRESSION: NO ACUTE RADIOGRAPHIC FINDING IN THE CHEST. Assessment & Plan - Diagnosis (1) Closed comminuted intertrochanteric fracture of proximal end of right femur Qualifiers: Encounter type: initial encounter Qualified Code(s): S72.141A - Displaced intertrochanteric fracture of right femur, initial encounter for closed fracture Is this a current diagnosis for this admission?: YesPlan: Status post right cephalo-medullary nail intertrochanteric fracture #1 pain control will decrease use of narcotics given patient's respiratory issues. #2 heparin for DVT prophylaxis #3 acute on chronic anemia continue to monitor hemoglobin stable at 8.1. #4 physical therapy weightbearing as tolerated right lower extremity #5 discharge planning patient will require custodial facility when medically stable.
[2017-03-12] MEDS: ACETYLCYSTEINE 20% SOLN 800 MG/4 ML VIAL.NEB NEB SCH ×2 (08:10→20:25)
[2017-03-12] MEDS: BUDESONIDE NEB 0.5 MG/2 ML AMPUL NEB SCH ×2 (08:10→20:26)
--- NOTE | 2017-03-12 08:55 | PDOC PROGRESS REPORT ---
Subjective Progress Note for:: 03/12/17 Subjective:: no pain. Wants home Physical Exam Vital Signs: Temp Pulse Resp BP Pulse Ox 98.2 F 101 H 24 H 134/69 H 100 03/12/17 08:29 03/12/17 08:29 03/12/17 08:29 03/12/17 08:29 03/12/17 08:29 Pulse Oximeter Continuous Start: 03/11/17 09: 36 Freq: RTQ4 Status: Hold Document 03/11/17 12:05 [facility] (Rec: 03/11/17 12:29 [facility] [email or web address]) Pulse Oximetry Assessment Oxygen Saturation (92-100) 99 Oxygen Delivery Method Bi-pap Fraction of Inspired Oxygen (FIO2) 40 Equipment Usage Equipment Standby Continuous SpO2 Machine # -Monitor Intake & Output 03/11/17 03/12/17 03/13/17 07:59 07:59 07:59 Intake Total 2040 529 0 Output Total 550 1275 Balance 1490 -746 0 Weight 180 lb 15.992 oz 149 lb 0.52 oz General appearance: PRESENT: no acute distress Respiratory exam: PRESENT: prolonged expiratory phas, wheezes - slight Cardiovascular exam: ABSENT: diastolic murmur, irregular rhythm, systolic murmur GI/Abdominal exam: ABSENT: mass, organolmegaly, tenderness Extremities exam: ABSENT: pedal edema Results Laboratory Results: 03/12/17 04:28 03/12/17 04:28 03/11/17 03/12/17 03/12/17 10:15 04:28 04:28 WBC 15.6 H RBC 2.73 L Hgb 8.1 L Hct 24.1 L MCV 88 MCH 29.6 MCHC 33.6 RDW 12.5 Plt Count 207 Carbonic Acid 1.64 H HCO3/H2CO3 Ratio 20:1 ABG pH 7.42 ABG pCO2 54.4 H ABG pO2 94.9 ABG HCO3 34.2 H ABG O2 Saturation 97.2 ABG Base Excess 8.5 FiO2 40% Sodium 133.3 L Potassium 4.1 Chloride 92 L Carbon Dioxide 33 H Anion Gap 8 BUN 16 Creatinine 0.62 Est GFR ( Amer) > 60 Est GFR (Non-Af Amer) > 60 Glucose 146 H Calcium 8.0 L Phosphorus 2.3 L Magnesium 1.8 Blood Type Antibody Screen 03/12/17 03/12/17 04:38 06:10 WBC RBC Hgb Hct MCV MCH MCHC RDW Plt Count Carbonic Acid 1.42 H HCO3/H2CO3 Ratio 22:1 ABG pH 7.45 ABG pCO2 47.1 H ABG pO2 116.6 H ABG HCO3 32.1 H ABG O2 Saturation 98.4 H ABG Base Excess 7.4 FiO2 30% Sodium Potassium Chloride Carbon Dioxide Anion Gap BUN Creatinine Est GFR ( Amer) Est GFR (Non-Af Amer) Glucose Calcium Phosphorus Magnesium Blood Type O POSITIVE Antibody Screen NEGATIVE 03/10/17 05:30 Velez Catheter Urine Culture - Final 6,000 col/ml Impressions: Fluoroscopy 03/09/17 00:00 IMPRESSION: Please see combined report for performance of procedure and radiologic supervision and interpretation. Hip/Pelvis X-Ray 03/09/17 00:00 IMPRESSION: IMAGE(S) OBTAINED DURING PROCEDURE. Chest X-Ray 03/12/17 06:00 IMPRESSION: NO ACUTE RADIOGRAPHIC FINDING IN THE CHEST. Assessment & Plan - Diagnosis (1) Acute and chronic respiratory failure with hypercapnia Is this a current diagnosis for this admission?: YesPlan: more alert on 30%AVAPS (2) Closed comminuted intertrochanteric fracture of proximal end of right femur Qualifiers: Encounter type: initial encounter Qualified Code(s): S72.141A - Displaced intertrochanteric fracture of right femur, initial encounter for closed fracture Is this a current diagnosis for this admission?: Yes (3) Panlobular emphysema Is this a current diagnosis for this admission?: Yes (4) ROBERTO (acute kidney injury) Is this a current diagnosis for this admission?: Yes (5) Acute blood loss as cause of postoperative anemia Is this a current diagnosis for this admission?: Yes (6) Acute respiratory acidosis Is this a current diagnosis for this admission?: Yes (7) SIRS (systemic inflammatory response syndrome) Is this a current diagnosis for this admission?: Yes (8) Hyponatremia Is this a current diagnosis for this admission?: Yes - Inpatient Certification Medical Necessity: Significant Comorbidiites Make Outpatient Treatment Too Risky , Need Close Monitoring Due to Risk of Patient Decompensation, Need For Continuous Telemetry Monitoring, Need for Nebulizer Therapy and Monitoring of Response, Need for IV Antibiotics, Risk of Complication if Not Cared For in Hospital, Risk of Diagnosis Which Will Require Inpatient Eval/Care/Monitoring
[2017-03-12] MEDS: FAMOTIDINE 20 MG TABLET PO SCH ×2 (10:36→21:22)
[2017-03-12] MEDS: PHENYTOIN SODIUM EXTENDED 100 MG CAPSULE PO SCH (10:36)
[2017-03-12] MEDS: ESCITALOPRAM OXALATE 10 MG TABLET PO SCH (10:36)
[2017-03-12 16:14] LABS: HEMATOCRIT 28.2 % (36.0-47.0); HEMOGLOBIN 9.5 g/dL (12.0-15.5); HGB HCT DIFFERENCE 0.3; MEAN CORPUSCULAR HEMOGLOBIN 29.1 pg (27.0-33.4); MEAN CORPUSCULAR HGB CONC 33.7 g/dL (32.0-36.0); MEAN CORPUSCULAR VOLUME 86 fl (80-97); RED BLOOD COUNT 3.27 10^6/uL (3.72-5.28); RED CELL DISTRIBUTION WIDTH 13.3 % (11.5-14.0); WHITE BLOOD COUNT 13.4 10^3/uL (4.0-10.5)
[2017-03-12] MEDS: MONTELUKAST SODIUM 10 MG TABLET PO SCH (17:23)
[2017-03-12] MEDS: SIMVASTATIN 40 MG TABLET PO SCH (17:24)
[2017-03-13 04:03] LABS: ABSOLUTE EOSINOPHILS # (AUTO) 0.2 10^3/uL (0.0-0.6); ABSOLUTE LYMPHOCYTES (AUTO) 1.7 10^3/uL (0.5-4.7); ABSOLUTE MONOCYTES (AUTO) 1.6 10^3/uL (0.1-1.4); ABSOLUTE NEUT (AUTO) 9.4 10^3/uL (1.7-8.2); BASOPHILS % (AUTO) 0.3 % (0-2); EOSINOPHILS % (AUTO) 1.4 % (0-6); HEMATOCRIT 27.9 % (36.0-47.0); HEMOGLOBIN 9.5 g/dL (12.0-15.5); HGB HCT DIFFERENCE 0.6; LYMPHOCYTES % (AUTO) 13.1 % (13-45); MEAN CORPUSCULAR HEMOGLOBIN 29.5 pg (27.0-33.4); MEAN CORPUSCULAR HGB CONC 34.1 g/dL (32.0-36.0); MEAN CORPUSCULAR VOLUME 87 fl (80-97); MONOCYTES % (AUTO) 12.2 % (3-13); RED BLOOD COUNT 3.22 10^6/uL (3.72-5.28); RED CELL DISTRIBUTION WIDTH 13.3 % (11.5-14.0); WHITE BLOOD COUNT 12.9 10^3/uL (4.0-10.5)
[2017-03-13] MEDS: IPRATROPIUM/ALBUTEROL 0.5-2.5 MG/3 ML AMPUL NEB SCH ×6 (04:06→23:57)
[2017-03-13 04:22] LABS: ALANINE AMINOTRANSFERASE 24 U/L (9-52); ALBUMIN 2.6 g/dL (3.5-5.0); ALKALINE PHOSPHATASE 107 U/L (38-126); ANION GAP 7 (5-19); ASPARTATE AMINO TRANSFERASE 28 U/L (14-36); BILIRUBIN,DIRECT 0.5 mg/dL (0.0-0.4); BILIRUBIN,TOTAL 0.9 mg/dL (0.2-1.3); BLOOD UREA NITROGEN 12 mg/dL (7-20); CALCIUM 7.8 mg/dL (8.4-10.2); CARBON DIOXIDE 33 mmol/L (22-30); CHLORIDE 93 mmol/L (98-107); CREATININE RESULT 0.53 mg/dL (0.52-1.25); GLUCOSE 142 mg/dL (75-110); MAGNESIUM 1.8 mg/dL (1.6-2.3); POTASSIUM 3.7 mmol/L (3.6-5.0); SODIUM 132.8 mmol/L (137-145); TOTAL PROTEIN 5.1 g/dL (6.3-8.2)
[2017-03-13] MEDS: HEPARIN SOD (PORCINE) 5,000 UNIT/ML 1 ML SYRINGE SUBCUT SCH ×3 (05:03→21:04)
[2017-03-13] MEDS: CEFAZOLIN SODIUM 2 GM in DEXTROSE 5%-WATER 100 ML IV SCH ×4 (05:03→23:10)
[2017-03-13 05:13] LABS: ARTERIAL BLOOD BASE EXCESS 9.8 mmol/L; ARTERIAL BLOOD O2 SATURATION 95.6 % (94-98)
--- NOTE | 2017-03-13 07:03 | RADIOLOGY REPORT (SQ) ---
EXAM DESCRIPTION: CHEST SINGLE VIEW COMPLETED DATE/TIME: 03/13/2017 6:47 am REASON FOR STUDY: acute resp failure COMPARISON: 03/12/2017 EXAM PARAMETERS: NUMBER OF VIEWS: One view. TECHNIQUE: Single frontal radiographic view of the chest acquired. RADIATION DOSE: NA LIMITATIONS: None. FINDINGS: LUNGS AND PLEURA: 80 in airspace opacity noted in the left lung base which could represent atelectasis, infiltrate, or edema. This appears to be slightly more prominent than on the prior rad iograph. Remainder the lungs are clear. No pneumothorax. No significant effusion. MEDIASTINUM AND HILAR STRUCTURES: No masses. Contour normal. HEART AND VASCULAR STRUCTURES: Cardiac size is stable. No pulmonary vascular distention. BONES: No acute findings. HARDWARE: EKG leads overlie the chest. OTHER: No other significant finding. IMPRESSION: Vague airspace opacity noted the left lung base which appears slightly more prominent th an on the prior study could represent area of atelectasis, infiltrate, or edema. Correlate clinicall y. TECHNICAL DOCUMENTATION: JOB ID: [id number]
--- NOTE | 2017-03-13 07:05 | PDOC PROGRESS REPORT ---
Subjective Progress Note for:: 03/13/17 Subjective:: better Physical Exam Vital Signs: Temp Pulse Resp BP Pulse Ox 98.5 F 94 22 H 120/67 94 03/13/17 03:33 03/13/17 04:15 03/13/17 06:00 03/13/17 05:50 03/13/17 06:00 Pulse Oximeter Continuous Start: 03/11/17 09: 36 Freq: RTQ4 Status: Hold Document 03/11/17 12:05 [facility] (Rec: 03/11/17 12:29 [facility] [email or web address]) Pulse Oximetry Assessment Oxygen Saturation (92-100) 99 Oxygen Delivery Method Bi-pap Fraction of Inspired Oxygen (FIO2) 40 Equipment Usage Equipment Standby Continuous SpO2 Machine # -Monitor Intake & Output 03/11/17 03/12/17 03/13/17 07:59 07:59 07:59 Intake Total 2040 529 2339 Output Total 550 1275 3255 Balance 3199 -371 -121 Weight 180 lb 15.992 oz 149 lb 0.52 oz 151 lb 3.794 oz General appearance: PRESENT: no acute distress Respiratory exam: PRESENT: wheezes - slight Cardiovascular exam: ABSENT: diastolic murmur, irregular rhythm, systolic murmur GI/Abdominal exam: ABSENT: mass, organolmegaly, tenderness Extremities exam: ABSENT: pedal edema Neurological exam: PRESENT: oriented to situation Psychiatric exam: PRESENT: appropriate affect Results Laboratory Results: 03/13/17 03:55 03/13/17 03:55 Abnormal - 24 hr 03/12/17 03/12/17 03/13/17 06:10 16:02 03:55 WBC 13.4 H 12.9 H RBC 3.27 L 3.22 L Hgb 9.5 L 9.5 L Hct 28.2 L 27.9 L Absolute Neutrophils 9.4 H Absolute Monocytes 1.6 H Carbonic Acid ABG pH ABG pCO2 ABG pO2 ABG HCO3 ABG Total CO2 Sodium Chloride Carbon Dioxide Glucose Calcium Direct Bilirubin Total Protein Albumin Crossmatch See Detail 03/13/17 03/13/17 03:55 05:00 WBC RBC Hgb Hct Absolute Neutrophils Absolute Monocytes Carbonic Acid 1.44 H ABG pH 7.48 H ABG pCO2 47.7 H ABG pO2 74.4 L ABG HCO3 34.5 H ABG Total CO2 36.0 H Sodium 132.8 L Chloride 93 L Carbon Dioxide 33 H Glucose 142 H Calcium 7.8 L Direct Bilirubin 0.5 H Total Protein 5.1 L Albumin 2.6 L Crossmatch Impressions: Fluoroscopy 03/09/17 00:00 IMPRESSION: Please see combined report for performance of procedure and radiologic supervision and interpretation. Hip/Pelvis X-Ray 03/09/17 00:00 IMPRESSION: IMAGE(S) OBTAINED DURING PROCEDURE. Assessment & Plan - Diagnosis (1) Acute and chronic respiratory failure with hypercapnia Is this a current diagnosis for this admission?: YesPlan: ok off AVAPS. To IMCU (2) Closed comminuted intertrochanteric fracture of proximal end of right femur Qualifiers: Encounter type: initial encounter Qualified Code(s): S72.141A - Displaced intertrochanteric fracture of right femur, initial encounter for closed fracture Is this a current diagnosis for this admission?: YesPlan: PT (3) Panlobular emphysema Is this a current diagnosis for this admission?: Yes (4) ROBERTO (acute kidney injury) Is this a current diagnosis for this admission?: Yes (5) Acute blood loss as cause of postoperative anemia Is this a current diagnosis for this admission?: YesPlan: hct24,28 p 2u (6) Acute respiratory acidosis Is this a current diagnosis for this admission?: Yes (7) SIRS (systemic inflammatory response syndrome) Is this a current diagnosis for this admission?: Yes (8) Hyponatremia Is this a current diagnosis for this admission?: Yes - Inpatient Certification Medical Necessity: Significant Comorbidiites Make Outpatient Treatment Too Risky , Need for Nebulizer Therapy and Monitoring of Response
[2017-03-13 07:14] LABS: APPEARANCE,URINE CLEAR; BILIRUBIN,URINE NEGATIVE (NEGATIVE); GLUCOSE, URINE NEGATIVE (NEGATIVE); KETONES,URINE NEGATIVE (NEGATIVE); LEUKOCYTE ESTERASE,URINE NEGATIVE (NEGATIVE); NITRITE,URINE NEGATIVE (NEGATIVE); PROTEIN,URINE NEGATIVE (NEGATIVE); URINE SPECIFIC GRAVITY 1.003; UROBILINOGEN,URINE NEGATIVE mg/dL (<2.0)
[2017-03-13] MEDS: ACETYLCYSTEINE 20% SOLN 800 MG/4 ML VIAL.NEB NEB SCH ×2 (08:37→20:01)
[2017-03-13] MEDS: BUDESONIDE NEB 0.5 MG/2 ML AMPUL NEB SCH ×2 (08:37→20:00)
[2017-03-13] MEDS: FAMOTIDINE 20 MG TABLET PO SCH ×2 (09:14→21:04)
[2017-03-13] MEDS: PHENYTOIN SODIUM EXTENDED 100 MG CAPSULE PO SCH (09:14)
[2017-03-13] MEDS: ESCITALOPRAM OXALATE 10 MG TABLET PO SCH (09:14)
--- NOTE | 2017-03-13 11:14 | PDOC PROGRESS REPORT ---
Subjective Subjective:: Patient lying in bed comfortably. No issues overnight. Answers questions appropriately. Currently states pain is tolerable. Physical Exam Vital Signs: Temp Pulse Resp BP Pulse Ox 99.6 F 103 H 18 139/72 H 89 L 03/13/17 08:11 03/13/17 08:37 03/13/17 08:37 03/13/17 08:11 03/13/17 08:37 Pulse Oximeter Continuous Start: 03/11/17 09: 36 Freq: RTQ4 Status: Complete Document 03/11/17 12:05 [facility] (Rec: 03/11/17 12:29 [facility] [email or web address]) Pulse Oximetry Assessment Oxygen Saturation (92-100) 99 Oxygen Delivery Method Bi-pap Fraction of Inspired Oxygen (FIO2) 40 Equipment Usage Equipment Standby Continuous SpO2 Machine # -Monitor Intake & Output 03/12/17 03/13/17 03/14/17 06:59 06:59 06:59 Intake Total 529 2339 Output Total 1275 3255 Balance -746 -916 Weight 67.6 kg 68.6 kg General appearance: PRESENT: no acute distress Musculoskeletal exam: PRESENT: other - Right lower extremity: Dressing clean/dry /intact no erythema or drainage. Minimal thigh swelling. No calf tenderness. 2 +. No sensory deficits. Results Laboratory Results: 03/13/17 03:55 03/13/17 03:55 03/12/17 03/12/17 03/13/17 06:10 16:02 03:55 WBC 13.4 H 12.9 H RBC 3.27 L 3.22 L Hgb 9.5 L 9.5 L Hct 28.2 L 27.9 L MCV 86 87 MCH 29.1 29.5 MCHC 33.7 34.1 RDW 13.3 13.3 Plt Count 172 180 Seg Neutrophils % 73.0 Lymphocytes % 13.1 Monocytes % 12.2 Eosinophils % 1.4 Basophils % 0.3 Absolute Neutrophils 9.4 H Absolute Lymphocytes 1.7 Absolute Monocytes 1.6 H Absolute Eosinophils 0.2 Absolute Basophils 0.0 Carbonic Acid HCO3/H2CO3 Ratio ABG pH ABG pCO2 ABG pO2 ABG HCO3 ABG O2 Saturation ABG Base Excess FiO2 Sodium Potassium Chloride Carbon Dioxide Anion Gap BUN Creatinine Est GFR ( Amer) Est GFR (Non-Af Amer) Glucose Calcium Magnesium Total Bilirubin AST ALT Alkaline Phosphatase Total Protein Albumin Urine Color Urine Appearance Urine pH Ur Specific Groom Urine Protein Urine Glucose (UA) Urine Ketones Urine Blood Urine Nitrite Ur Leukocyte Esterase Urine WBC (Auto) Urine RBC (Auto) Blood Type O POSITIVE Antibody Screen NEGATIVE 03/13/17 03/13/17 03/13/17 03:55 05:00 06:20 WBC RBC Hgb Hct MCV MCH MCHC RDW Plt Count Seg Neutrophils % Lymphocytes % Monocytes % Eosinophils % Basophils % Absolute Neutrophils Absolute Lymphocytes Absolute Monocytes Absolute Eosinophils Absolute Basophils Carbonic Acid 1.44 H HCO3/H2CO3 Ratio 23:1 ABG pH 7.48 H ABG pCO2 47.7 H ABG pO2 74.4 L ABG HCO3 34.5 H ABG O2 Saturation 95.6 ABG Base Excess 9.8 FiO2 4 LITERS Sodium 132.8 L Potassium 3.7 Chloride 93 L Carbon Dioxide 33 H Anion Gap 7 BUN 12 Creatinine 0.53 Est GFR ( Amer) > 60 Est GFR (Non-Af Amer) > 60 Glucose 142 H Calcium 7.8 L Magnesium 1.8 Total Bilirubin 0.9 AST 28 ALT 24 Alkaline Phosphatase 107 Total Protein 5.1 L Albumin 2.6 L Urine Color STRAW Urine Appearance CLEAR Urine pH 7.0 Ur Specific Groom 1.003 Urine Protein NEGATIVE Urine Glucose (UA) NEGATIVE Urine Ketones NEGATIVE Urine Blood SMALL H Urine Nitrite NEGATIVE Ur Leukocyte Esterase NEGATIVE Urine WBC (Auto) 1 Urine RBC (Auto) 0 Blood Type Antibody Screen Impressions: Fluoroscopy 03/09/17 00:00 IMPRESSION: Please see combined report for performance of procedure and radiologic supervision and interpretation. Hip/Pelvis X-Ray 03/09/17 00:00 IMPRESSION: IMAGE(S) OBTAINED DURING PROCEDURE. Chest X-Ray 03/13/17 06:00 IMPRESSION: Vague airspace opacity noted the left lung base which appears slightly more prominent than on the prior study could represent area of atelectasis, infiltrate, or edema. Correlate clinically. Assessment & Plan - Diagnosis (1) Closed comminuted intertrochanteric fracture of proximal end of right femur Qualifiers: Encounter type: initial encounter Qualified Code(s): S72.141A - Displaced intertrochanteric fracture of right femur, initial encounter for closed fracture Is this a current diagnosis for this admission?: YesPlan: Status post right cephalo-medullary nail intertrochanteric fracture #1 pain control #2 heparin for DVT prophylaxis #3 acute on chronic anemia continue to monitor #4 physical therapy weightbearing as tolerated right lower extremity #5 discharge planning patient will require correction facility when medically stable.
[2017-03-13] MEDS: MONTELUKAST SODIUM 10 MG TABLET PO SCH (17:22)
[2017-03-13] MEDS: SIMVASTATIN 40 MG TABLET PO SCH (17:22)
[2017-03-14] MEDS: IPRATROPIUM/ALBUTEROL 0.5-2.5 MG/3 ML AMPUL NEB SCH ×6 (05:04→23:58)
[2017-03-14] MEDS: HEPARIN SOD (PORCINE) 5,000 UNIT/ML 1 ML SYRINGE SUBCUT SCH ×3 (05:20→21:04)
[2017-03-14] MEDS: CEFAZOLIN SODIUM 2 GM in DEXTROSE 5%-WATER 100 ML IV SCH (05:20)
--- NOTE | 2017-03-14 07:35 | PDOC PROGRESS REPORT ---
Subjective Progress Note for:: 03/14/17 Subjective:: wants home rather than rehab Physical Exam Vital Signs: Temp Pulse Resp BP Pulse Ox 98.7 F 87 20 132/67 H 92 03/14/17 03:06 03/14/17 07:00 03/14/17 05:05 03/14/17 03:06 03/14/17 05:05 Pulse Oximeter Continuous Start: 03/11/17 09: 36 Freq: RTQ4 Status: Complete Document 03/11/17 12:05 [facility] (Rec: 03/11/17 12:29 [facility] [email or web address]) Pulse Oximetry Assessment Oxygen Saturation (92-100) 99 Oxygen Delivery Method Bi-pap Fraction of Inspired Oxygen (FIO2) 40 Equipment Usage Equipment Standby Continuous SpO2 Machine # -Monitor Intake & Output 03/12/17 03/13/17 03/14/17 07:59 07:59 07:59 Intake Total 529 2339 1509 Output Total 1275 3255 700 Balance -746 -916 809 Weight 149 lb 0.52 oz 151 lb 3.794 oz 152 lb 12.485 oz General appearance: PRESENT: other - drowsy Respiratory exam: PRESENT: clear to auscultation [place]ja Cardiovascular exam: ABSENT: diastolic murmur, irregular rhythm, systolic murmur GI/Abdominal exam: ABSENT: mass, organolmegaly, tenderness Extremities exam: ABSENT: pedal edema Neurological exam: PRESENT: oriented to situation Psychiatric exam: PRESENT: appropriate affect Results Laboratory Results: 03/13/17 03:55 03/13/17 03:55 Impressions: Fluoroscopy 03/09/17 00:00 IMPRESSION: Please see combined report for performance of procedure and radiologic supervision and interpretation. Hip/Pelvis X-Ray 03/09/17 00:00 IMPRESSION: IMAGE(S) OBTAINED DURING PROCEDURE. Chest X-Ray 03/13/17 06:00 IMPRESSION: Vague airspace opacity noted the left lung base which appears slightly more prominent than on the prior study could represent area of atelectasis, infiltrate, or edema. Correlate clinically. Assessment & Plan - Diagnosis (1) Acute and chronic respiratory failure with hypercapnia Is this a current diagnosis for this admission?: YesPlan: drowsy off avaps. Just waking up (2) Closed comminuted intertrochanteric fracture of proximal end of right femur Qualifiers: Encounter type: initial encounter Qualified Code(s): S72.141A - Displaced intertrochanteric fracture of right femur, initial encounter for closed fracture Is this a current diagnosis for this admission?: YesPlan: took 10 steps. PT suggested rehab (3) Panlobular emphysema Is this a current diagnosis for this admission?: Yes (4) ROBERTO (acute kidney injury) Is this a current diagnosis for this admission?: Yes (5) Acute blood loss as cause of postoperative anemia Is this a current diagnosis for this admission?: Yes (6) Acute respiratory acidosis Is this a current diagnosis for this admission?: Yes (7) SIRS (systemic inflammatory response syndrome) Is this a current diagnosis for this admission?: Yes (8) Hyponatremia Is this a current diagnosis for this admission?: Yes - Inpatient Certification Medical Necessity: Need Close Monitoring Due to Risk of Patient Decompensation, Need For Continuous Telemetry Monitoring, Risk of Complication if Not Cared For in Hospital
[2017-03-14] MEDS: BUDESONIDE NEB 0.5 MG/2 ML AMPUL NEB SCH ×2 (07:59→20:05)
[2017-03-14] MEDS: ACETYLCYSTEINE 20% SOLN 800 MG/4 ML VIAL.NEB NEB SCH ×2 (07:59→20:04)
[2017-03-14] MEDS: PHENYTOIN SODIUM EXTENDED 100 MG CAPSULE PO SCH (10:32)
[2017-03-14] MEDS: FAMOTIDINE 20 MG TABLET PO SCH ×2 (10:32→21:04)
[2017-03-14] MEDS: ESCITALOPRAM OXALATE 10 MG TABLET PO SCH (10:32)
[2017-03-14] MEDS: MONTELUKAST SODIUM 10 MG TABLET PO SCH (17:56)
[2017-03-14] MEDS: SIMVASTATIN 40 MG TABLET PO SCH (17:56)
[2017-03-15] MEDS: IPRATROPIUM/ALBUTEROL 0.5-2.5 MG/3 ML AMPUL NEB SCH ×6 (04:05→23:57)
[2017-03-15] MEDS: HEPARIN SOD (PORCINE) 5,000 UNIT/ML 1 ML SYRINGE SUBCUT SCH ×3 (05:10→21:08)
[2017-03-15] MEDS: ACETYLCYSTEINE 20% SOLN 800 MG/4 ML VIAL.NEB NEB SCH ×2 (07:57→19:54)
--- NOTE | 2017-03-15 08:02 | PDOC PROGRESS REPORT ---
Subjective Subjective:: Patient lying in bed comfortably. No issues overnight. Answers questions appropriately. Currently states pain is tolerable. Physical Exam Vital Signs: Temp Pulse Resp BP Pulse Ox 99.1 F 86 18 129/62 H 94 03/15/17 03:15 03/15/17 07:00 03/15/17 04:00 03/15/17 03:15 03/15/17 03:15 Pulse Oximeter Continuous Start: 03/11/17 09: 36 Freq: RTQ4 Status: Complete Document 03/11/17 12:05 [facility] (Rec: 03/11/17 12:29 [facility] [email or web address]) Pulse Oximetry Assessment Oxygen Saturation (92-100) 99 Oxygen Delivery Method Bi-pap Fraction of Inspired Oxygen (FIO2) 40 Equipment Usage Equipment Standby Continuous SpO2 Machine # -Monitor Intake & Output 03/14/17 03/15/17 03/16/17 06:59 06:59 06:59 Intake Total 1509 1571 Output Total 700 1500 Balance 809 71 Weight 69.3 kg 68.9 kg Musculoskeletal exam: PRESENT: other - Right lower extremity: Dressing clean/dry /intact no erythema or drainage. No calf tenderness. Intact plantar flexion/ dorsiflexion Results Laboratory Results: 03/13/17 03:55 03/13/17 03:55 Impressions: Fluoroscopy 03/09/17 00:00 IMPRESSION: Please see combined report for performance of procedure and radiologic supervision and interpretation. Hip/Pelvis X-Ray 03/09/17 00:00 IMPRESSION: IMAGE(S) OBTAINED DURING PROCEDURE. Chest X-Ray 03/13/17 06:00 IMPRESSION: Vague airspace opacity noted the left lung base which appears slightly more prominent than on the prior study could represent area of atelectasis, infiltrate, or edema. Correlate clinically. Assessment & Plan - Diagnosis (1) Closed comminuted intertrochanteric fracture of proximal end of right femur Qualifiers: Qualified Code(s): S72.141A - Displaced intertrochanteric fracture of right femur, initial encounter for closed fracture Is this a current diagnosis for this admission?: YesPlan: Status post right cephalo-medullary nail intertrochanteric fracture #1 pain control #2 heparin for DVT prophylaxis #3 acute on chronic anemia continue to monitor #4 physical therapy weightbearing as tolerated right lower extremity #5 discharge planning patient will require [facility] facility versus home with home health when medically stable
--- NOTE | 2017-03-15 08:02 | PDOC PROGRESS REPORT ---
Subjective Progress Note for:: 03/15/17 Subjective:: wants rehab not home Physical Exam Vital Signs: Temp Pulse Resp BP Pulse Ox 99.1 F 86 18 129/62 H 94 03/15/17 03:15 03/15/17 07:00 03/15/17 04:00 03/15/17 03:15 03/15/17 03:15 Pulse Oximeter Continuous Start: 03/11/17 09: 36 Freq: RTQ4 Status: Complete Document 03/11/17 12:05 [facility] (Rec: 03/11/17 12:29 [facility] [email or web address]) Pulse Oximetry Assessment Oxygen Saturation (92-100) 99 Oxygen Delivery Method Bi-pap Fraction of Inspired Oxygen (FIO2) 40 Equipment Usage Equipment Standby Continuous SpO2 Machine # -Monitor Intake & Output 03/14/17 03/15/17 03/16/17 07:59 07:59 07:59 Intake Total 1509 1571 Output Total 700 1500 Balance 809 71 Weight 152 lb 12.485 oz 151 lb 14.376 oz General appearance: PRESENT: no acute distress Respiratory exam: PRESENT: rhonchi - few Cardiovascular exam: ABSENT: diastolic murmur, irregular rhythm, systolic murmur GI/Abdominal exam: ABSENT: mass, organolmegaly, tenderness Extremities exam: ABSENT: pedal edema Neurological exam: PRESENT: oriented to situation Psychiatric exam: PRESENT: appropriate affect Results Laboratory Results: 03/13/17 03:55 03/13/17 03:55 Impressions: Fluoroscopy 03/09/17 00:00 IMPRESSION: Please see combined report for performance of procedure and radiologic supervision and interpretation. Hip/Pelvis X-Ray 03/09/17 00:00 IMPRESSION: IMAGE(S) OBTAINED DURING PROCEDURE. Chest X-Ray 03/13/17 06:00 IMPRESSION: Vague airspace opacity noted the left lung base which appears slightly more prominent than on the prior study could represent area of atelectasis, infiltrate, or edema. Correlate clinically. Assessment & Plan - Diagnosis (1) Closed comminuted intertrochanteric fracture of proximal end of right femur Qualifiers: Encounter type: initial encounter Qualified Code(s): S72.141A - Displaced intertrochanteric fracture of right femur, initial encounter for closed fracture Is this a current diagnosis for this admission?: YesPlan: rehab (2) Acute and chronic respiratory failure with hypercapnia Is this a current diagnosis for this admission?: Yes (3) Panlobular emphysema Is this a current diagnosis for this admission?: Yes (4) ROBERTO (acute kidney injury) Is this a current diagnosis for this admission?: Yes (5) Acute blood loss as cause of postoperative anemia Is this a current diagnosis for this admission?: Yes (6) Acute respiratory acidosis Is this a current diagnosis for this admission?: Yes (7) SIRS (systemic inflammatory response syndrome) Is this a current diagnosis for this admission?: Yes (8) Hyponatremia Is this a current diagnosis for this admission?: Yes
[2017-03-15] MEDS: BUDESONIDE NEB 0.5 MG/2 ML AMPUL NEB SCH ×2 (08:05→19:53)
[2017-03-15] MEDS: ESCITALOPRAM OXALATE 10 MG TABLET PO SCH (09:42)
[2017-03-15] MEDS: FAMOTIDINE 20 MG TABLET PO SCH ×2 (09:42→21:08)
[2017-03-15] MEDS: PHENYTOIN SODIUM EXTENDED 100 MG CAPSULE PO SCH (09:43)
--- NOTE | 2017-03-15 15:43 | PDOC PROGRESS REPORT ---
Subjective Progress Note for:: 03/11/17 Subjective:: I do not feel so good Physical Exam Vital Signs: Temp Pulse Resp BP Pulse Ox 97.4 F 98 26 H 139/61 H 98 03/11/17 07:53 03/11/17 07:53 03/11/17 07:53 03/11/17 07:53 03/11/17 07:53 Intake & Output 03/10/17 03/11/17 03/12/17 06:59 06:59 06:59 Intake Total 2300 2040 Output Total 530 550 Balance 1770 1490 Weight 72.1 kg 82.1 kg General appearance: PRESENT: no acute distress, disheveled, obese, well- developed Head exam: PRESENT: atraumatic, normocephalic Eye exam: PRESENT: conjunctiva pale Mouth exam: PRESENT: dry mucosa, neck supple, tongue midline Neck exam: ABSENT: carotid bruit, JVD, lymphadenopathy, thyromegaly Respiratory exam: PRESENT: decreased breath sounds, prolonged expiratory phas, rhonchi, unlabored, wheezes Cardiovascular exam: PRESENT: RRR, +S1, +S2 Pulses: PRESENT: normal radial pulses GI/Abdominal exam: PRESENT: normal bowel sounds, soft. ABSENT: distended, guarding, mass, organolmegaly, rebound, tenderness Rectal exam: PRESENT: deferred Musculoskeletal exam: PRESENT: normal inspection Neurological exam: PRESENT: awake Psychiatric exam: PRESENT: normal mood Skin exam: PRESENT: dry, warm Results Laboratory Results: 03/11/17 04:06 03/11/17 04:06 03/10/17 03/11/17 03/11/17 12:46 04:06 04:06 WBC 13.4 H RBC 2.91 L Hgb 8.3 L Hct 25.5 L MCV 88 MCH 28.4 MCHC 32.5 RDW 13.0 Plt Count 165 Carbonic Acid 2.16 H HCO3/H2CO3 Ratio 14:1 ABG pH 7.27 L ABG pCO2 71.8 H* ABG pO2 139.4 H ABG HCO3 32.2 H ABG O2 Saturation 98.3 H ABG Base Excess 3.9 FiO2 15L Sodium 129.5 L Potassium 5.1 H Chloride 91 L Carbon Dioxide 33 H Anion Gap 6 BUN 25 H Creatinine 0.70 Est GFR ( Amer) > 60 Est GFR (Non-Af Amer) > 60 Glucose 131 H Calcium 8.0 L Impressions: Fluoroscopy 03/09/17 00:00 IMPRESSION: Please see combined report for performance of procedure and radiologic supervision and interpretation. Hip/Pelvis X-Ray 03/09/17 00:00 IMPRESSION: IMAGE(S) OBTAINED DURING PROCEDURE. Chest X-Ray 03/10/17 00:00 IMPRESSION: No significant interval change. No acute findings. Other findings as noted above. Assessment & Plan - Diagnosis (1) Closed comminuted intertrochanteric fracture of proximal end of right femur Qualifiers: Encounter type: initial encounter Qualified Code(s): S72.141A - Displaced intertrochanteric fracture of right femur, initial encounter for closed fracture Is this a current diagnosis for this admission?: Yes (2) Panlobular emphysema Is this a current diagnosis for this admission?: Yes (3) Acute and chronic respiratory failure with hypercapnia Is this a current diagnosis for this admission?: Yes
--- NOTE | 2017-03-15 15:46 | PDOC PROGRESS REPORT ---
Subjective Progress Note for:: 03/12/17 Subjective:: feeling a little better Physical Exam Vital Signs: Temp Pulse Resp BP Pulse Ox 97.6 F 93 32 H 107/65 100 03/12/17 04:00 03/12/17 04:00 03/12/17 06:00 03/12/17 05:30 03/12/17 06:00 Pulse Oximeter Continuous Start: 03/11/17 09: 36 Freq: RTQ4 Status: Hold Document 03/11/17 12:05 [facility] (Rec: 03/11/17 12:29 [facility] [email or web address]) Pulse Oximetry Assessment Oxygen Saturation (92-100) 99 Oxygen Delivery Method Bi-pap Fraction of Inspired Oxygen (FIO2) 40 Equipment Usage Equipment Standby Continuous SpO2 Machine # -Monitor Intake & Output 03/11/17 03/12/17 03/13/17 06:59 06:59 06:59 Intake Total 2040 529 Output Total 550 1275 Balance 1490 -746 Weight 82.1 kg 67.6 kg General appearance: PRESENT: no acute distress, cooperative, disheveled, obese, well-developed Head exam: PRESENT: atraumatic, normocephalic Eye exam: PRESENT: conjunctiva pale, EOMI Mouth exam: PRESENT: moist, tongue midline Neck exam: ABSENT: carotid bruit, JVD, lymphadenopathy, thyromegaly Respiratory exam: PRESENT: decreased breath sounds, prolonged expiratory phas, rhonchi, unlabored Cardiovascular exam: PRESENT: RRR, +S1, +S2 Pulses: PRESENT: normal radial pulses GI/Abdominal exam: PRESENT: normal bowel sounds, soft. ABSENT: distended, guarding, mass, organolmegaly, rebound, tenderness Rectal exam: PRESENT: deferred Gentrourinary exam: PRESENT: indwelling catheter Musculoskeletal exam: PRESENT: normal inspection Neurological exam: PRESENT: alert, awake Psychiatric exam: PRESENT: flat affect Skin exam: PRESENT: dry, warm Results Laboratory Results: 03/12/17 04:28 03/12/17 04:28 03/11/17 03/12/17 03/12/17 10:15 04:28 04:28 WBC 15.6 H RBC 2.73 L Hgb 8.1 L Hct 24.1 L MCV 88 MCH 29.6 MCHC 33.6 RDW 12.5 Plt Count 207 Carbonic Acid 1.64 H HCO3/H2CO3 Ratio 20:1 ABG pH 7.42 ABG pCO2 54.4 H ABG pO2 94.9 ABG HCO3 34.2 H ABG O2 Saturation 97.2 ABG Base Excess 8.5 FiO2 40% Sodium 133.3 L Potassium 4.1 Chloride 92 L Carbon Dioxide 33 H Anion Gap 8 BUN 16 Creatinine 0.62 Est GFR ( Amer) > 60 Est GFR (Non-Af Amer) > 60 Glucose 146 H Calcium 8.0 L Phosphorus 2.3 L Magnesium 1.8 Blood Type Antibody Screen 03/12/17 03/12/17 04:38 06:10 WBC RBC Hgb Hct MCV MCH MCHC RDW Plt Count Carbonic Acid 1.42 H HCO3/H2CO3 Ratio 22:1 ABG pH 7.45 ABG pCO2 47.1 H ABG pO2 116.6 H ABG HCO3 32.1 H ABG O2 Saturation 98.4 H ABG Base Excess 7.4 FiO2 30% Sodium Potassium Chloride Carbon Dioxide Anion Gap BUN Creatinine Est GFR ( Amer) Est GFR (Non-Af Amer) Glucose Calcium Phosphorus Magnesium Blood Type O POSITIVE Antibody Screen NEGATIVE 03/10/17 05:30 Velez Catheter Urine Culture - Final 6,000 col/ml Impressions: Fluoroscopy 03/09/17 00:00 IMPRESSION: Please see combined report for performance of procedure and radiologic supervision and interpretation. Hip/Pelvis X-Ray 03/09/17 00:00 IMPRESSION: IMAGE(S) OBTAINED DURING PROCEDURE. Chest X-Ray 03/12/17 06:00 IMPRESSION: NO ACUTE RADIOGRAPHIC FINDING IN THE CHEST. Assessment & Plan - Diagnosis (1) Closed comminuted intertrochanteric fracture of proximal end of right femur Qualifiers: Encounter type: initial encounter Qualified Code(s): S72.141A - Displaced intertrochanteric fracture of right femur, initial encounter for closed fracture Is this a current diagnosis for this admission?: Yes (2) Panlobular emphysema Is this a current diagnosis for this admission?: Yes (3) Acute and chronic respiratory failure with hypercapnia Is this a current diagnosis for this admission?: Yes
--- NOTE | 2017-03-15 15:48 | PDOC PROGRESS REPORT ---
Subjective Progress Note for:: 03/15/17 Subjective:: i am almost back to being me Physical Exam Vital Signs: Temp Pulse Resp BP Pulse Ox 98.4 F 92 16 141/83 H 97 03/15/17 07:21 03/15/17 11:25 03/15/17 11:25 03/15/17 07:21 03/15/17 07:55 Pulse Oximeter Continuous Start: 03/11/17 09: 36 Freq: RTQ4 Status: Complete Document 03/11/17 12:05 [facility] (Rec: 03/11/17 12:29 [facility] [email or web address]) Pulse Oximetry Assessment Oxygen Saturation (92-100) 99 Oxygen Delivery Method Bi-pap Fraction of Inspired Oxygen (FIO2) 40 Equipment Usage Equipment Standby Continuous SpO2 Machine # -Monitor Intake & Output 03/14/17 03/15/17 03/16/17 06:59 06:59 06:59 Intake Total 1509 1571 Output Total 700 1500 Balance 809 71 Weight 69.3 kg 68.9 kg General appearance: PRESENT: no acute distress, cooperative, disheveled, obese, well-developed Head exam: PRESENT: atraumatic, normocephalic Eye exam: PRESENT: conjunctiva pale, EOMI Mouth exam: PRESENT: dry mucosa, neck supple, tongue midline Neck exam: ABSENT: carotid bruit, JVD, lymphadenopathy, thyromegaly Respiratory exam: PRESENT: decreased breath sounds, prolonged expiratory phas, symmetrical, unlabored Cardiovascular exam: PRESENT: RRR, +S1, +S2 Pulses: PRESENT: normal radial pulses GI/Abdominal exam: PRESENT: normal bowel sounds, soft. ABSENT: distended, guarding, mass, organolmegaly, rebound, tenderness Rectal exam: PRESENT: deferred Gentrourinary exam: PRESENT: indwelling catheter Musculoskeletal exam: PRESENT: normal inspection Neurological exam: PRESENT: alert, awake Psychiatric exam: PRESENT: normal mood Skin exam: PRESENT: dry, warm Results Laboratory Results: 03/13/17 03:55 03/13/17 03:55 03/13/17 06:20 Velez Catheter Urine Culture - Final NO GROWTH 2 DAYS Impressions: Fluoroscopy 03/09/17 00:00 IMPRESSION: Please see combined report for performance of procedure and radiologic supervision and interpretation. Hip/Pelvis X-Ray 03/09/17 00:00 IMPRESSION: IMAGE(S) OBTAINED DURING PROCEDURE. Chest X-Ray 03/13/17 06:00 IMPRESSION: Vague airspace opacity noted the left lung base which appears slightly more prominent than on the prior study could represent area of atelectasis, infiltrate, or edema. Correlate clinically. Assessment & Plan - Diagnosis (1) Closed comminuted intertrochanteric fracture of proximal end of right femur Qualifiers: Encounter type: initial encounter Qualified Code(s): S72.141A - Displaced intertrochanteric fracture of right femur, initial encounter for closed fracture Is this a current diagnosis for this admission?: Yes (2) Panlobular emphysema Is this a current diagnosis for this admission?: Yes (3) Acute and chronic respiratory failure with hypercapnia Is this a current diagnosis for this admission?: Yes
[2017-03-15] MEDS: MONTELUKAST SODIUM 10 MG TABLET PO SCH (17:46)
[2017-03-15] MEDS: SIMVASTATIN 40 MG TABLET PO SCH (17:47)
[2017-03-16] MEDS: ACETAMINOPHEN 325 MG TABLET PO PRN ×2 (00:14→21:37)
[2017-03-16] MEDS: IPRATROPIUM/ALBUTEROL 0.5-2.5 MG/3 ML AMPUL NEB SCH ×5 (04:15→20:39)
[2017-03-16] MEDS: HEPARIN SOD (PORCINE) 5,000 UNIT/ML 1 ML SYRINGE SUBCUT SCH ×3 (05:07→21:38)
[2017-03-16] MEDS: ACETYLCYSTEINE 20% SOLN 800 MG/4 ML VIAL.NEB NEB SCH ×2 (07:57→20:38)
[2017-03-16] MEDS: BUDESONIDE NEB 0.5 MG/2 ML AMPUL NEB SCH ×2 (07:57→20:39)
--- NOTE | 2017-03-16 08:14 | PDOC PROGRESS REPORT ---
Subjective Progress Note for:: 03/16/17 Subjective:: some R hip pain p PT. Tylenol helped. looking for rehab. Physical Exam Vital Signs: Temp Pulse Resp BP Pulse Ox 98.1 F 80 18 140/71 H 97 03/16/17 07:46 03/16/17 07:46 03/16/17 07:46 03/16/17 07:46 03/16/17 07:46 Pulse Oximeter Continuous Start: 03/11/17 09: 36 Freq: RTQ4 Status: Complete Document 03/11/17 12:05 [facility] (Rec: 03/11/17 12:29 [facility] [email or web address]) Pulse Oximetry Assessment Oxygen Saturation (92-100) 99 Oxygen Delivery Method Bi-pap Fraction of Inspired Oxygen (FIO2) 40 Equipment Usage Equipment Standby Continuous SpO2 Machine # -Monitor Intake & Output 03/15/17 03/16/17 03/17/17 07:59 07:59 07:59 Intake Total 1571 823 Output Total 1500 Balance 71 823 Weight 151 lb 14.376 oz 154 lb 12.232 oz General appearance: PRESENT: no acute distress Respiratory exam: PRESENT: clear to auscultation pooja Cardiovascular exam: ABSENT: diastolic murmur, irregular rhythm, systolic murmur GI/Abdominal exam: ABSENT: mass, organolmegaly, tenderness Extremities exam: ABSENT: pedal edema Neurological exam: PRESENT: oriented to situation Psychiatric exam: PRESENT: appropriate affect Results Laboratory Results: 03/13/17 03:55 03/13/17 03:55 03/13/17 06:20 Velez Catheter Urine Culture - Final NO GROWTH 2 DAYS Impressions: Fluoroscopy 03/09/17 00:00 IMPRESSION: Please see combined report for performance of procedure and radiologic supervision and interpretation. Hip/Pelvis X-Ray 03/09/17 00:00 IMPRESSION: IMAGE(S) OBTAINED DURING PROCEDURE. Chest X-Ray 03/13/17 06:00 IMPRESSION: Vague airspace opacity noted the left lung base which appears slightly more prominent than on the prior study could represent area of atelectasis, infiltrate, or edema. Correlate clinically. Assessment & Plan - Diagnosis (1) Closed comminuted intertrochanteric fracture of proximal end of right femur Qualifiers: Encounter type: initial encounter Qualified Code(s): S72.141A - Displaced intertrochanteric fracture of right femur, initial encounter for closed fracture Is this a current diagnosis for this admission?: YesPlan: rehab pending (2) Acute and chronic respiratory failure with hypercapnia Is this a current diagnosis for this admission?: Yes (3) Panlobular emphysema Is this a current diagnosis for this admission?: Yes (4) ROBERTO (acute kidney injury) Is this a current diagnosis for this admission?: Yes (5) Acute blood loss as cause of postoperative anemia Is this a current diagnosis for this admission?: Yes (6) Acute respiratory acidosis Is this a current diagnosis for this admission?: Yes (7) SIRS (systemic inflammatory response syndrome) Is this a current diagnosis for this admission?: Yes (8) Hyponatremia Is this a current diagnosis for this admission?: Yes
[2017-03-16] MEDS: ESCITALOPRAM OXALATE 10 MG TABLET PO SCH (09:11)
[2017-03-16] MEDS: FAMOTIDINE 20 MG TABLET PO SCH ×2 (09:11→21:38)
[2017-03-16] MEDS: PHENYTOIN SODIUM EXTENDED 100 MG CAPSULE PO SCH (09:11)
[2017-03-16] MEDS: SIMVASTATIN 40 MG TABLET PO SCH (17:24)
[2017-03-16] MEDS: MONTELUKAST SODIUM 10 MG TABLET PO SCH (17:24)
--- NOTE | 2017-03-16 19:25 | PDOC PROGRESS REPORT ---
Subjective Progress Note for:: 03/16/17 Subjective:: Patient lying in bed comfortably. No issues overnight. Answers questions appropriately. Currently states pain is tolerable. Patient has refused heparin because of bruising in her lower extremity. Otherwise she feels she is improving. Physical Exam Vital Signs: Temp Pulse Resp BP Pulse Ox 98.1 F 96 17 140/71 H 97 03/16/17 07:46 03/16/17 16:00 03/16/17 16:00 03/16/17 07:46 03/16/17 07:46 Pulse Oximeter Continuous Start: 03/11/17 09: 36 Freq: RTQ4 Status: Complete Document 03/11/17 12:05 [facility] (Rec: 03/11/17 12:29 [facility] [email or web address]) Pulse Oximetry Assessment Oxygen Saturation (92-100) 99 Oxygen Delivery Method Bi-pap Fraction of Inspired Oxygen (FIO2) 40 Equipment Usage Equipment Standby Continuous SpO2 Machine # -Monitor Intake & Output 03/15/17 03/16/17 03/17/17 06:59 06:59 06:59 Intake Total 1571 823 830 Output Total 1500 800 Balance 71 823 30 Weight 68.9 kg 70.2 kg Musculoskeletal exam: PRESENT: other - Right lower extremity: Dressing clean/dry /intact. Notable ecchymosis along the back of the thigh. No significant change in thigh swelling. Intact plantar flexion/dorsiflexion. No sensory deficits. No calf tenderness. Results Laboratory Results: 03/13/17 03:55 03/13/17 03:55 Impressions: Fluoroscopy 03/09/17 00:00 IMPRESSION: Please see combined report for performance of procedure and radiologic supervision and interpretation. Hip/Pelvis X-Ray 03/09/17 00:00 IMPRESSION: IMAGE(S) OBTAINED DURING PROCEDURE. Chest X-Ray 03/13/17 06:00 IMPRESSION: Vague airspace opacity noted the left lung base which appears slightly more prominent than on the prior study could represent area of atelectasis, infiltrate, or edema. Correlate clinically. Assessment & Plan - Diagnosis (1) Closed comminuted intertrochanteric fracture of proximal end of right femur Qualifiers: Encounter type: initial encounter Qualified Code(s): S72.141A - Displaced intertrochanteric fracture of right femur, initial encounter for closed fracture Is this a current diagnosis for this admission?: YesPlan: Status post right cephalo-medullary nail intertrochanteric fracture #1 pain control #2 heparin for DVT prophylaxis has refused. I stressed the importance of DVT prophylaxis patient is more concerned about bleeding. She understands these risks. #3 acute on chronic anemia continue to monitor #4 physical therapy weightbearing as tolerated right lower extremity #5 discharge planning patient will require jail facility versus home with home health when medically stable
[2017-03-17] MEDS: IPRATROPIUM/ALBUTEROL 0.5-2.5 MG/3 ML AMPUL NEB SCH ×7 (00:15→23:38)
[2017-03-17] MEDS: HEPARIN SOD (PORCINE) 5,000 UNIT/ML 1 ML SYRINGE SUBCUT SCH ×3 (05:43→21:25)
[2017-03-17] MEDS: ACETYLCYSTEINE 20% SOLN 800 MG/4 ML VIAL.NEB NEB SCH ×2 (07:39→20:14)
[2017-03-17] MEDS: BUDESONIDE NEB 0.5 MG/2 ML AMPUL NEB SCH ×2 (07:39→20:12)
--- NOTE | 2017-03-17 07:42 | PDOC PROGRESS REPORT ---
Subjective Progress Note for:: 03/17/17 Subjective:: refusilng heparin because of bruising R leg. Knows risks. Walked goel Physical Exam Vital Signs: Temp Pulse Resp BP Pulse Ox 97.6 F 82 16 108/54 L 93 03/16/17 23:47 03/17/17 05:02 03/17/17 05:02 03/17/17 05:02 03/17/17 05:02 Pulse Oximeter Continuous Start: 03/11/17 09: 36 Freq: RTQ4 Status: Complete Document 03/11/17 12:05 [facility] (Rec: 03/11/17 12:29 [facility] [email or web address]) Pulse Oximetry Assessment Oxygen Saturation (92-100) 99 Oxygen Delivery Method Bi-pap Fraction of Inspired Oxygen (FIO2) 40 Equipment Usage Equipment Standby Continuous SpO2 Machine # -Monitor Intake & Output 03/15/17 03/16/17 03/17/17 07:59 07:59 07:59 Intake Total 8732 394 9252 Output Total 1500 1600 Balance 71 823 -40 Weight 151 lb 14.376 oz 154 lb 12.232 oz 151 lb General appearance: PRESENT: no acute distress Respiratory exam: PRESENT: clear to auscultation pooja Cardiovascular exam: ABSENT: diastolic murmur, irregular rhythm, systolic murmur GI/Abdominal exam: ABSENT: mass, organolmegaly, tenderness Extremities exam: ABSENT: pedal edema Neurological exam: PRESENT: oriented to situation Psychiatric exam: PRESENT: appropriate affect Results Laboratory Results: 03/13/17 03:55 03/13/17 03:55 Impressions: Fluoroscopy 03/09/17 00:00 IMPRESSION: Please see combined report for performance of procedure and radiologic supervision and interpretation. Hip/Pelvis X-Ray 03/09/17 00:00 IMPRESSION: IMAGE(S) OBTAINED DURING PROCEDURE. Chest X-Ray 03/13/17 06:00 IMPRESSION: Vague airspace opacity noted the left lung base which appears slightly more prominent than on the prior study could represent area of atelectasis, infiltrate, or edema. Correlate clinically. Assessment & Plan - Diagnosis (1) Closed comminuted intertrochanteric fracture of proximal end of right femur Qualifiers: Encounter type: initial encounter Qualified Code(s): S72.141A - Displaced intertrochanteric fracture of right femur, initial encounter for closed fracture Is this a current diagnosis for this admission?: YesPlan: rehab pending at [facility] (2) Acute and chronic respiratory failure with hypercapnia Is this a current diagnosis for this admission?: Yes (3) Panlobular emphysema Is this a current diagnosis for this admission?: Yes (4) ROBERTO (acute kidney injury) Is this a current diagnosis for this admission?: Yes (5) Acute blood loss as cause of postoperative anemia Is this a current diagnosis for this admission?: Yes (6) Acute respiratory acidosis Is this a current diagnosis for this admission?: Yes (7) SIRS (systemic inflammatory response syndrome) Is this a current diagnosis for this admission?: Yes (8) Hyponatremia Is this a current diagnosis for this admission?: Yes
[2017-03-17] MEDS: ESCITALOPRAM OXALATE 10 MG TABLET PO SCH (09:51)
[2017-03-17] MEDS: PHENYTOIN SODIUM EXTENDED 100 MG CAPSULE PO SCH (09:52)
[2017-03-17] MEDS: FAMOTIDINE 20 MG TABLET PO SCH ×2 (09:52→21:21)
[2017-03-17] MEDS: CYANOCOBALAMIN (VITAMIN B-12) 1,000 MCG TABLET PO SCH (09:52)
--- NOTE | 2017-03-17 17:34 | PDOC PROGRESS REPORT ---
Subjective Progress Note for:: 03/16/17 Subjective:: Feeling better doing much better awaiting PT Physical Exam Vital Signs: Temp Pulse Resp BP Pulse Ox 98.1 F 92 16 140/71 H 97 03/16/17 07:46 03/16/17 14:00 03/16/17 11:41 03/16/17 07:46 03/16/17 07:46 Pulse Oximeter Continuous Start: 03/11/17 09: 36 Freq: RTQ4 Status: Complete Document 03/11/17 12:05 [facility] (Rec: 03/11/17 12:29 [facility] [email or web address]) Pulse Oximetry Assessment Oxygen Saturation (92-100) 99 Oxygen Delivery Method Bi-pap Fraction of Inspired Oxygen (FIO2) 40 Equipment Usage Equipment Standby Continuous SpO2 Machine # -Monitor Intake & Output 03/15/17 03/16/17 03/17/17 06:59 06:59 06:59 Intake Total 1571 823 Output Total 1500 Balance 71 823 Weight 68.9 kg 70.2 kg General appearance: PRESENT: no acute distress, cooperative, disheveled, well- developed Head exam: PRESENT: atraumatic, normocephalic Eye exam: PRESENT: conjunctiva pale, EOMI Mouth exam: PRESENT: moist, neck supple, tongue midline Neck exam: ABSENT: carotid bruit, JVD, lymphadenopathy, thyromegaly Respiratory exam: PRESENT: decreased breath sounds, prolonged expiratory phas, rhonchi, symmetrical, unlabored Cardiovascular exam: PRESENT: RRR, +S1, +S2 Pulses: PRESENT: normal radial pulses GI/Abdominal exam: PRESENT: normal bowel sounds, soft. ABSENT: distended, guarding, mass, organolmegaly, rebound, tenderness Rectal exam: PRESENT: deferred Musculoskeletal exam: PRESENT: normal inspection Neurological exam: PRESENT: alert, awake Psychiatric exam: PRESENT: normal mood Skin exam: PRESENT: dry, warm Results Laboratory Results: 03/13/17 03:55 03/13/17 03:55 Impressions: Fluoroscopy 03/09/17 00:00 IMPRESSION: Please see combined report for performance of procedure and radiologic supervision and interpretation. Hip/Pelvis X-Ray 03/09/17 00:00 IMPRESSION: IMAGE(S) OBTAINED DURING PROCEDURE. Chest X-Ray 03/13/17 06:00 IMPRESSION: Vague airspace opacity noted the left lung base which appears slightly more prominent than on the prior study could represent area of atelectasis, infiltrate, or edema. Correlate clinically. Assessment & Plan - Diagnosis (1) Closed comminuted intertrochanteric fracture of proximal end of right femur Qualifiers: Encounter type: initial encounter Qualified Code(s): S72.141A - Displaced intertrochanteric fracture of right femur, initial encounter for closed fracture Is this a current diagnosis for this admission?: Yes (2) Panlobular emphysema Is this a current diagnosis for this admission?: Yes (3) Acute and chronic respiratory failure with hypercapnia Is this a current diagnosis for this admission?: No
--- NOTE | 2017-03-17 17:36 | PDOC PROGRESS REPORT ---
Subjective Progress Note for:: 03/17/17 Subjective:: Up and ambulating with physical therapy Physical Exam Vital Signs: Temp Pulse Resp BP Pulse Ox 98.8 F 81 16 116/64 94 03/17/17 12:25 03/17/17 15:57 03/17/17 15:57 03/17/17 12:25 03/17/17 15:57 Pulse Oximeter Continuous Start: 03/11/17 09: 36 Freq: RTQ4 Status: Complete Document 03/11/17 12:05 [facility] (Rec: 03/11/17 12:29 [facility] [email or web address]) Pulse Oximetry Assessment Oxygen Saturation (92-100) 99 Oxygen Delivery Method Bi-pap Fraction of Inspired Oxygen (FIO2) 40 Equipment Usage Equipment Standby Continuous SpO2 Machine # -Monitor Intake & Output 03/16/17 03/17/17 03/18/17 06:59 06:59 06:59 Intake Total 823 1560 Output Total 1600 Balance 823 -40 Weight 70.2 kg 68.492 kg General appearance: PRESENT: no acute distress, cooperative, disheveled, well- developed Head exam: PRESENT: atraumatic, normocephalic Eye exam: PRESENT: conjunctiva pale, EOMI Mouth exam: PRESENT: moist, neck supple, tongue midline Neck exam: ABSENT: carotid bruit, JVD, lymphadenopathy, thyromegaly Respiratory exam: PRESENT: prolonged expiratory phas, rhonchi, unlabored Cardiovascular exam: PRESENT: RRR, +S1, +S2 Pulses: PRESENT: normal radial pulses GI/Abdominal exam: PRESENT: normal bowel sounds, soft. ABSENT: distended, guarding, mass, organolmegaly, rebound, tenderness Rectal exam: PRESENT: deferred Neurological exam: PRESENT: alert, awake Psychiatric exam: PRESENT: normal mood Skin exam: PRESENT: dry, warm Results Laboratory Results: 03/13/17 03:55 03/13/17 03:55 Impressions: Fluoroscopy 03/09/17 00:00 IMPRESSION: Please see combined report for performance of procedure and radiologic supervision and interpretation. Hip/Pelvis X-Ray 03/09/17 00:00 IMPRESSION: IMAGE(S) OBTAINED DURING PROCEDURE. Chest X-Ray 03/13/17 06:00 IMPRESSION: Vague airspace opacity noted the left lung base which appears slightly more prominent than on the prior study could represent area of atelectasis, infiltrate, or edema. Correlate clinically. Assessment & Plan - Diagnosis (1) Closed comminuted intertrochanteric fracture of proximal end of right femur Qualifiers: Encounter type: initial encounter Qualified Code(s): S72.141A - Displaced intertrochanteric fracture of right femur, initial encounter for closed fracture Is this a current diagnosis for this admission?: Yes (2) Panlobular emphysema Is this a current diagnosis for this admission?: Yes (3) Acute and chronic respiratory failure with hypercapnia Is this a current diagnosis for this admission?: No
[2017-03-17] MEDS: MONTELUKAST SODIUM 10 MG TABLET PO SCH (18:48)
[2017-03-17] MEDS: SIMVASTATIN 40 MG TABLET PO SCH (18:48)
[2017-03-17] MEDS: ACETAMINOPHEN 325 MG TABLET PO PRN (21:20)
[2017-03-18] MEDS: IPRATROPIUM/ALBUTEROL 0.5-2.5 MG/3 ML AMPUL NEB SCH ×4 (03:33→16:04)
[2017-03-18] MEDS: HEPARIN SOD (PORCINE) 5,000 UNIT/ML 1 ML SYRINGE SUBCUT SCH ×2 (05:20→14:34)
[2017-03-18] MEDS: ACETAMINOPHEN 325 MG TABLET PO PRN (06:22)
[2017-03-18] MEDS: BUDESONIDE NEB 0.5 MG/2 ML AMPUL NEB SCH (07:59)
[2017-03-18] MEDS: ACETYLCYSTEINE 20% SOLN 800 MG/4 ML VIAL.NEB NEB SCH (07:59)
--- NOTE | 2017-03-18 07:59 | PDOC DISCHARGE SUMMARY ---
General - Admit/Disc Date/PCP Admission Date/Primary Care Provider: 03/09/17 05:07 HELIO OCHOA MD Discharge Date: 03/18/17 - Discharge Diagnosis (1) Closed comminuted intertrochanteric fracture of proximal end of right femur Is this a current diagnosis for this admission?: Yes (2) Acute and chronic respiratory failure with hypercapnia Is this a current diagnosis for this admission?: No (3) Panlobular emphysema Is this a current diagnosis for this admission?: Yes (4) Acute respiratory acidosis Is this a current diagnosis for this admission?: Yes (5) ROBERTO (acute kidney injury) Is this a current diagnosis for this admission?: Yes (6) Acute blood loss as cause of postoperative anemia Is this a current diagnosis for this admission?: Yes (7) SIRS (systemic inflammatory response syndrome) Is this a current diagnosis for this admission?: Yes (8) Hyponatremia Is this a current diagnosis for this admission?: Yes - Additional Information Resuscitation Status: Full Code Discharge Diet: Regular Discharge Activity: Supervised Activity Home Medications: Albuterol Sulfate [Proair HFA] 2 puff IH QIDP PRN 03/09/17 Cetirizine HCl [Zyrtec 10 mg Tablet] 10 mg PO DAILY 03/09/17 Escitalopram Oxalate [Lexapro] 20 mg PO DAILY 03/09/17 Fluticasone/Salmeterol [Advair 500-50 Diskus 14 Dose/Diskus] 1 puff IH Q12 03/09 Montelukast Sodium [Singulair 10 mg Tablet] 10 mg PO QPM 03/09/17 Omeprazole 20 mg PO DAILY 03/09/17 Phenytoin Sodium Extended [Dilantin 100 mg Capsule.er] 400 mg PO DAILY 03/09/17 Simvastatin 40 mg PO QPM 03/09/17 Tiotropium [place] [Spiriva Respimat] 2 puff IH DAILY 03/09/17 Acetaminophen [Tylenol 325 mg Tablet] 325 mg PO Q4HP PRN #0 tablet 03/16/17 Cyanocobalamin (Vitamin B-12) [B-12] 2,500 mcg SL DAILY #0 lozenge 03/16/17 History of Present Illness Patient complains of: fell R hip History of Present Illness: PRASAD CLAROS is a 66 year old female who fell 2030pm Hospital Course Hospital Course: Cominuted fracture was fixated with alberto & screw. On morphine 0.5mg/h she became hypercapnic and was maintained on avaps a few days in ICU. She had 2u prbc. Now she is walkering with tylenol for pain. Creatinine went from 0.6 to 1.1 to 0.5 with fluids. She stared refusing heparin 5k q8h a couple of days ago because of bruising in R leg. She knows the risk of pe. Physical Exam Vital Signs: Temp Pulse Resp BP Pulse Ox 98.7 F 82 19 121/60 96 03/18/17 03:21 03/18/17 03:32 03/18/17 03:32 03/18/17 03:21 03/18/17 03:32 Pulse Oximeter Continuous Start: 03/11/17 09: 36 Freq: RTQ4 Status: Complete Document 03/11/17 12:05 [facility] (Rec: 03/11/17 12:29 [facility] [email or web address]) Pulse Oximetry Assessment Oxygen Saturation (92-100) 99 Oxygen Delivery Method Bi-pap Fraction of Inspired Oxygen (FIO2) 40 Equipment Usage Equipment Standby Continuous SpO2 Machine # -Monitor Intake & Output 03/16/17 03/17/17 03/18/17 07:59 07:59 07:59 Intake Total 823 1560 1185 Output Total 1600 700 Balance 823 -40 485 Weight 154 lb 12.232 oz 151 lb General appearance: PRESENT: no acute distress Respiratory exam: PRESENT: clear to auscultation [place] Cardiovascular exam: ABSENT: diastolic murmur, irregular rhythm, systolic murmur GI/Abdominal exam: ABSENT: mass, organolmegaly, tenderness Extremities exam: ABSENT: pedal edema Neurological exam: PRESENT: oriented to situation Psychiatric exam: PRESENT: appropriate affect Results Laboratory Results: 03/13/17 03:55 03/13/17 03:55 Labs- Last Values WBC 12.9 10^3/uL (4.0-10.5) H 03/13/17 03:55 RBC 3.22 10^6/uL (3.72-5.28) L 03/13/17 03:55 Hgb 9.5 g/dL (12.0-15.5) L 03/13/17 03:55 Hct 27.9 % (36.0-47.0) L 03/13/17 03:55 MCV 87 fl (80-97) 03/13/17 03:55 MCH 29.5 pg (27.0-33.4) 03/13/17 03:55 MCHC 34.1 g/dL (32.0-36.0) 03/13/17 03:55 RDW 13.3 % (11.5-14.0) 03/13/17 03:55 Plt Count 180 10^3/uL (150-450) 03/13/17 03:55 Total Counted 100 03/08/17 23:25 Seg Neutrophils % 73.0 % (42-78) 03/13/17 03:55 Seg Neuts % (Manual) 78 % (42-78) 03/08/17 23:25 Lymphocytes % 13.1 % (13-45) 03/13/17 03:55 Lymphocytes % (Manual) 10 % (13-45) L 03/08/17 23:25 Monocytes % 12.2 % (3-13) 03/13/17 03:55 Monocytes % (Manual) 12 % (3-13) 03/08/17 23:25 Eosinophils % 1.4 % (0-6) 03/13/17 03:55 Eosinophils % (Manual) 0 % (0-6) 03/08/17 23:25 Basophils % 0.3 % (0-2) 03/13/17 03:55 Basophils % (Manual) 0 % (0-2) 03/08/17 23:25 Absolute Neutrophils 9.4 10^3/uL (1.7-8.2) H 03/13/17 03:55 Abs Neuts (Manual) 15.9 10^3/uL (1.7-8.2) H 03/08/17 23:25 Absolute Lymphocytes 1.7 10^3/uL (0.5-4.7) 03/13/17 03:55 Abs Lymphs (Manual) 2.0 10^3/uL (0.5-4.7) 03/08/17 23:25 Absolute Monocytes 1.6 10^3/uL (0.1-1.4) H 03/13/17 03:55 Abs Monocytes (Manual) 2.4 10^3/uL (0.1-1.4) H 03/08/17 23:25 Absolute Eosinophils 0.2 10^3/uL (0.0-0.6) 03/13/17 03:55 Absolute Eos (Manual) 0.0 10^3/uL (0.0-0.6) 03/08/17 23:25 Absolute Basophils 0.0 10^3/uL (0.0-0.2) 03/13/17 03:55 Abs Basophils (Manual) 0.0 10^3/uL (0.0-0.2) 03/08/17 23:25 Large Platelets PRESENT 03/08/17 23:25 Platelet Comment ADEQUATE 03/08/17 23:25 RBC Morph Comment NORMO-CYTIC/CHROMIC 03/08/17 23:25 PT 13.9 SEC (11.4-15.4) 03/12/17 04:28 INR 1.00 03/12/17 04:28 APTT 36.5 SEC (23.5-35.8) H 03/12/17 04:28 Carbonic Acid 1.44 mmol/L (1.05-1.35) H 03/13/17 05:00 HCO3/H2CO3 Ratio 23:1 03/13/17 05:00 ABG pH 7.48 (7.35-7.45) H 03/13/17 05:00 ABG pCO2 47.7 mmHg (35-45) H 03/13/17 05:00 ABG pO2 74.4 mmHg (80-100) L 03/13/17 05:00 ABG HCO3 34.5 mmol/L (20-26) H 03/13/17 05:00 ABG Total CO2 36.0 mmol/L (21-25) H 03/13/17 05:00 ABG O2 Saturation 95.6 % (94-98) 03/13/17 05:00 ABG Base Excess 9.8 mmol/L 03/13/17 05:00 FiO2 4 LITERS 03/13/17 05:00 Sodium 132.8 mmol/L (137-145) L 03/13/17 03:55 Potassium 3.7 mmol/L (3.6-5.0) 03/13/17 03:55 Chloride 93 mmol/L (98-107) L 03/13/17 03:55 Carbon Dioxide 33 mmol/L (22-30) H 03/13/17 03:55 Anion Gap 7 (5-19) 03/13/17 03:55 BUN 12 mg/dL (7-20) 03/13/17 03:55 Creatinine 0.53 mg/dL (0.52-1.25) 03/13/17 03:55 Est GFR ( Amer) > 60 (>60) 03/13/17 03:55 Est GFR (Non-Af Amer) > 60 (>60) 03/13/17 03:55 Glucose 142 mg/dL (75-110) H 03/13/17 03:55 Hemoglobin A1c % 5.3 % (4.7-6.0) 03/13/17 03:55 Calcium 7.8 mg/dL (8.4-10.2) L 03/13/17 03:55 Phosphorus 2.3 mg/dL (2.5-4.5) L 03/12/17 04:28 Magnesium 1.8 mg/dL (1.6-2.3) 03/13/17 03:55 Total Bilirubin 0.9 mg/dL (0.2-1.3) 03/13/17 03:55 Direct Bilirubin 0.5 mg/dL (0.0-0.4) H 03/13/17 03:55 Indirect Bilirubin Not Reportable 03/13/17 03:55 Neonat Total Bilirubin Not Reportable 03/13/17 03:55 AST 28 U/L (14-36) 03/13/17 03:55 ALT 24 U/L (9-52) 03/13/17 03:55 Alkaline Phosphatase 107 U/L (38-126) 03/13/17 03:55 Troponin I 0.013 ng/mL 03/08/17 23:25 NT-Pro-B Natriuret Pep 100 pg/mL (5-900) 03/08/17 23:25 Total Protein 5.1 g/dL (6.3-8.2) L 03/13/17 03:55 Albumin 2.6 g/dL (3.5-5.0) L 03/13/17 03:55 Urine Color STRAW 03/13/17 06:20 Urine Appearance CLEAR 03/13/17 06:20 Urine pH 7.0 (5.0-9.0) 03/13/17 06:20 Ur Specific [place] 1.003 03/13/17 06:20 Urine Protein NEGATIVE mg/dL (NEGATIVE) 03/13/17 06:20 Urine Glucose (UA) NEGATIVE mg/dL (NEGATIVE) 03/13/17 06:20 Urine Ketones NEGATIVE mg/dL (NEGATIVE) 03/13/17 06:20 Urine Blood SMALL (NEGATIVE) H 03/13/17 06:20 Urine Nitrite NEGATIVE (NEGATIVE) 03/13/17 06:20 Urine Bilirubin NEGATIVE (NEGATIVE) 03/13/17 06:20 Urine Urobilinogen NEGATIVE mg/dL (<2.0) 03/13/17 06:20 Ur Leukocyte Esterase NEGATIVE (NEGATIVE) 03/13/17 06:20 Urine WBC (Auto) 1 /HPF 03/13/17 06:20 Urine RBC (Auto) 0 /HPF 03/13/17 06:20 U Hyaline Cast (Auto) 4 /LPF 03/10/17 05:30 Urine Bacteria (Auto) TRACE /HPF 03/13/17 06:20 Squamous Epi Cells Auto 1 /HPF 03/13/17 06:20 Urine Mucus (Auto) RARE /LPF 03/13/17 06:20 Urine Ascorbic Acid NEGATIVE (NEGATIVE) 03/13/17 06:20 Blood Type O POSITIVE 03/12/17 06:10 Blood Type Confirm O POSITIVE 03/12/17 06:14 Antibody Screen NEGATIVE 03/12/17 06:10 Crossmatch See Detail 03/12/17 06:10 Impressions: Fluoroscopy 03/09/17 00:00 IMPRESSION: Please see combined report for performance of procedure and radiologic supervision and interpretation. Hip/Pelvis X-Ray 03/09/17 00:00 IMPRESSION: IMAGE(S) OBTAINED DURING PROCEDURE. Chest X-Ray 03/13/17 06:00 IMPRESSION: Vague airspace opacity noted the left lung base which appears slightly more prominent than on the prior study could represent area of atelectasis, infiltrate, or edema. Correlate clinically. Qualifiers PATEINT BEING DISCHARGED WITH ANY OF THE FOLLOWING DIAGNOSIS?: No Plan Discharge Plan: to SNF rehab. I will follow with Dr Jara.
[2017-03-18] MEDS: PHENYTOIN SODIUM EXTENDED 100 MG CAPSULE PO SCH (09:54)
[2017-03-18] MEDS: ESCITALOPRAM OXALATE 10 MG TABLET PO SCH (09:55)
[2017-03-18] MEDS: FAMOTIDINE 20 MG TABLET PO SCH (09:55)
[2017-03-18] MEDS: CYANOCOBALAMIN (VITAMIN B-12) 1,000 MCG TABLET PO SCH (09:55)
[2017-03-18 14:16] VITALS: BP 139/72
--- NOTE | 2017-03-18 14:59 | PDOC PROGRESS REPORT ---
Subjective Progress Note for:: 03/18/17 Subjective:: Up with physical therapy Physical Exam Vital Signs: Temp Pulse Resp BP Pulse Ox 98.2 F 80 16 139/72 H 95 03/18/17 14:14 03/18/17 14:14 03/18/17 14:14 03/18/17 14:14 03/18/17 14:14 Pulse Oximeter Continuous Start: 03/11/17 09: 36 Freq: RTQ4 Status: Complete Document 03/11/17 12:05 [facility] (Rec: 03/11/17 12:29 [facility] [email or web address]) Pulse Oximetry Assessment Oxygen Saturation (92-100) 99 Oxygen Delivery Method Bi-pap Fraction of Inspired Oxygen (FIO2) 40 Equipment Usage Equipment Standby Continuous SpO2 Machine # -Monitor Intake & Output 03/17/17 03/18/17 03/19/17 06:59 06:59 06:59 Intake Total 1560 1190 Output Total 1600 900 Balance -40 290 Weight 68.492 kg 70.1 kg General appearance: PRESENT: no acute distress, cooperative, disheveled, obese, well-developed Head exam: PRESENT: atraumatic, normocephalic Eye exam: PRESENT: conjunctiva pale, EOMI Mouth exam: PRESENT: dry mucosa, neck supple, tongue midline Neck exam: ABSENT: carotid bruit, JVD, lymphadenopathy, thyromegaly Respiratory exam: PRESENT: decreased breath sounds, prolonged expiratory phas, rhonchi, symmetrical, unlabored Cardiovascular exam: PRESENT: RRR, +S1, +S2 Pulses: PRESENT: normal radial pulses GI/Abdominal exam: PRESENT: normal bowel sounds, soft. ABSENT: distended, guarding, mass, organolmegaly, rebound, tenderness Rectal exam: PRESENT: deferred Neurological exam: PRESENT: alert, awake Psychiatric exam: PRESENT: normal mood Skin exam: PRESENT: dry, warm Results Laboratory Results: 03/13/17 03:55 03/13/17 03:55 Impressions: Fluoroscopy 03/09/17 00:00 IMPRESSION: Please see combined report for performance of procedure and radiologic supervision and interpretation. Hip/Pelvis X-Ray 03/09/17 00:00 IMPRESSION: IMAGE(S) OBTAINED DURING PROCEDURE. Chest X-Ray 03/13/17 06:00 IMPRESSION: Vague airspace opacity noted the left lung base which appears slightly more prominent than on the prior study could represent area of atelectasis, infiltrate, or edema. Correlate clinically. Assessment & Plan - Diagnosis (1) Closed comminuted intertrochanteric fracture of proximal end of right femur Qualifiers: Encounter type: initial encounter Qualified Code(s): S72.141A - Displaced intertrochanteric fracture of right femur, initial encounter for closed fracture Is this a current diagnosis for this admission?: Yes (2) Panlobular emphysema Is this a current diagnosis for this admission?: Yes (3) Acute and chronic respiratory failure with hypercapnia Is this a current diagnosis for this admission?: No - Plan Summary Plan Summary: requires a min bi-pap + 02 at discharge
[2017-03-18] MEDS: SIMVASTATIN 40 MG TABLET PO SCH (17:08)
[2017-03-18] MEDS: MONTELUKAST SODIUM 10 MG TABLET PO SCH (17:08)
== END 2017-03-18 18:15 | DRG 480 ==
LOC: ER 22:19 → EH 03-09 00:42 → UNDOADMIN 03-09 00:42 → EH 03-09 02:04 → 4N 03-09 02:04 → EH 03-09 05:07 → 4N 03-09 05:07 → ICU 03-11 11:15 → 3N 03-13 07:34
PROVIDERS: ADMIT Family Medicine; ATTEND Family Medicine
PROC: 3E0 Administration, Physiological Systems and Anatomical Regions, Introduction (ICD-10-PCS; 2017-03-09)
PROC: 0QS636Z Reposition Right Upper Femur with Intramedullary Internal Fixation Device, Percutaneous Approach (ICD-10-PCS; principal; 2017-03-09 17:45)
PROC: 5A09457 Assistance with Respiratory Ventilation, 24-96 Consecutive Hours, Continuous Positive Airway Pressure (ICD-10-PCS; 2017-03-10)
PROC: 30233N1 Transfusion of Nonautologous Red Blood Cells into Peripheral Vein, Percutaneous Approach (ICD-10-PCS; 2017-03-12)
DX: S72.141A Displaced intertrochanteric fracture of right femur, initial encounter for closed fracture (principal); J96.22 Acute and chronic respiratory failure with hypercapnia; D62 Acute posthemorrhagic anemia; E87.2 Acidosis; N17.9 Acute kidney failure, unspecified; E87.1 Hypo-osmolality and hyponatremia; J43.1 Panlobular emphysema; F17.210 Nicotine dependence, cigarettes, uncomplicated; Z99.81 Dependence on supplemental oxygen; I10 Essential (primary) hypertension; J30.9 Allergic rhinitis, unspecified; M19.90 Unspecified osteoarthritis, unspecified site; F32.9 Major depressive disorder, single episode, unspecified; Z90.49 Acquired absence of other specified parts of digestive tract; Z90.710 Acquired absence of both cervix and uterus; Z86.73 Personal history of transient ischemic attack (TIA), and cerebral infarction without residual deficits; Z82.49 Family history of ischemic heart disease and other diseases of the circulatory system; Z80.9 Family history of malignant neoplasm, unspecified; W01.0XXA Fall on same level from slipping, tripping and stumbling without subsequent striking against object, initial encounter; Y92.009 Unspecified place in unspecified non-institutional (private) residence as the place of occurrence of the external cause; J32.9 Chronic sinusitis, unspecified
CPT/HCPCS: 01230; 36415; 36430; 36600; 51702; 71010; 80048; 80053; 81001; 82565; 82803; 83036; 83735; 83880; 84100; 84484; 85025; 85027; 85610; 85730; 86850; 86900; 86901; 86920; 87086; 94640; 94660; 94668; 94799; 96374; 96375; 99291; C1713; G8978-GP; G8979-GP; G8987-GO; G8988-GO; J0690; J1165; J1644; J2250; J2270; J2405; J2704; J3010; J3490; J7120; J7620; P9016

== ENCOUNTER 2018-08-21 23:23 | Inpatient (IN) | payer MEDICARE, OTHER ==
[2018-08-21] MEDS ORDERED: RINGERS SOLUTION,LACTATED 1,000 ML IV ONE (23:33)
[2018-08-21] MEDS ORDERED: ALBUTEROL SULFATE 0.083% NEB 2.5 MG/3 ML AMPUL NEB ONE (23:33)
--- NOTE | 2018-08-21 23:35 | ER Document Report ---
ED General - General Chief Complaint: Respiratory Distress Stated Complaint: DIFFICULTY BREATHING Time Seen by Provider: 08/21/18 23:32 Notes: Patient is a 68-year-old female with a past medical history of COPD with 3 L of nasal cannula oxygen dependence at baseline who presents by EMS with increased shortness of breath, cough and fever. Patient reports that her symptoms been going on since earlier this morning and getting progressively worse since onset. She has tried 7 rounds of an albuterol nebulizer at home without any significant relief. She reports nonproductive cough. Also notes associated body aches and feeling generally poor. EMS reports that when they got to the patient she was in moderate respiratory distress which did resolve after receiving nebulizers and at 125 mg of Solu-Medrol in route to the hospital. The patient has not contacted her primary care physician regarding today's concerns. She has required BiPAP and hospitalization for her COPD in the past but has never required intubation. She did receive an influenza vaccine this year. TRAVEL OUTSIDE OF THE [place] IN LAST 30 DAYS: Yes - Related Data Allergies/Adverse Reactions: No Known Allergies Allergy (Verified 09/25/16 05:30) Past Medical History - General Information source: Patient - Social History Smoking Status: Former Smoker Frequency of alcohol use: None Drug Abuse: None Lives with: Spouse/Significant other Family History: CAD, CVA, Hypertension, Malignancy - Past Medical History Cardiac Medical History: Reports: Hx Hypertension Denies: Hx Coronary Artery Disease, Hx Heart Attack Pulmonary Medical History: Reports: Hx Asthma, Hx Bronchitis, Hx COPD, Hx Pneumonia, Hx Respiratory Failure Neurological Medical History: Reports: Hx Seizures - last 1997. Denies: Hx Cerebrovascular Accident Endocrine Medical History: Denies: Hx Diabetes Mellitus Type 2 Musculoskeletal Medical History: Reports Hx Arthritis Psychiatric Medical History: Reports: Hx Depression Traumatic Medical History: Reports: Hx Fractures Past Surgical History: Reports: Hx Appendectomy, Hx Cholecystectomy, Hx Hysterectomy, Hx Orthopedic Surgery - Rmenisectomy. Denies: Hx Pacemaker - Immunizations Immunizations up to date: Yes Hx Diphtheria, Pertussis, Tetanus Vaccination: Yes Review of Systems - Review of Systems Notes: Constitutional: Positive for fever. HENT: Negative for sore throat. Eyes: Negative for visual changes. Cardiovascular: Negative for chest pain. Respiratory: Positive for shortness of breath. Gastrointestinal: Negative for abdominal pain, vomiting or diarrhea. Genitourinary: Negative for dysuria. Musculoskeletal: Negative for back pain. Skin: Negative for rash. Neurological: Negative for headaches, weakness or numbness. 10 point ROS negative except as marked above and in HPI. Physical Exam - Vital signs Vitals: Pulse Ox 97 08/21/18 23:28 Interpretation: Tachycardic, Hypoxic, Tachypneic, Febrile Notes: PHYSICAL EXAMINATION: GENERAL: Well-appearing, well-nourished and in no acute distress. HEAD: Atraumatic, normocephalic. EYES: Pupils equal round and reactive to light, extraocular movements intact, sclera anicteric, conjunctiva are normal. ENT: nares patent, oropharynx clear without exudates. Moderately dry mucous membranes. NECK: Normal range of motion, supple without lymphadenopathy LUNGS: Globally diminished air movement in all lung parra, mild tachypnea but n o retractions or distress. Faint expiratory wheezing throughout. HEART: Regular tachycardia without murmurs ABDOMEN: Soft, nontender, normoactive bowel sounds. No guarding, no rebound. No masses appreciated. EXTREMITIES: Normal range of motion, no pitting or edema. No cyanosis. NEUROLOGICAL: No focal neurological deficits. Moves all extremities spontaneously and on command. PSYCH: Normal mood, normal affect. SKIN: Warm, Dry, normal turgor, no rashes or lesions noted. Course - Re-evaluation Re-evalutation: 08/21/18 23:34 Patient presents mildly tachypneic, not in overt respiratory distress, wheezing with diminished air movement in all lung parra. Patient has had several days of coughing and subjective fever at home. She does not have any retractions on assessment, able to speak in a please sentence. She has already received 125 mg of Solu-Medrol prior to arrival, has received multiple nebulizers in route. The patient will be started on 2 g of magnesium, IV fluids and additional ongoing albuterol nebulizers. Chest x-ray, flu test, basic laboratories will be obtained. Patient does not warrant BiPAP or intubation at this point. 08/22/18 00:40 Chest x-ray read as possible chronic scarring changes although does appear to have a possible infiltrate in the right middle and lower lobe. Patient does hav e a fever here to 100.6 F. White count is elevated at 13.9. Flu test negative. Clinically the patient most likely has an acute pneumonia with associated COPD exacerbation with increased oxygen dependency and sepsis. She has been started on levofloxacin. 08/22/18 00:53 On reassessment the patient's work of breathing has actually deteriorated slightly, mild supraclavicular retractions continues to have diminished air movement in all lung parra. She is only maintaining 88% saturation on 5 L of nasal cannula normally only uses 3 L. At this point we will transition to BiPAP. Additional in-line nebulizers will be provided. 08/22/18 01:26 Patient has had improvement of her work of breathing on BiPAP. No longer retracting and able to speak in clear sentences again. I have discussed this patient with the hospitalist who has accepted the patient for admission. - Vital Signs Vital signs: Temp Pulse Resp BP Pulse Ox 100.6 F H 101 H 21 H 151/70 H 89 L 08/21/18 23:36 08/21/18 23:56 08/21/18 23:36 08/21/18 23:36 08/21/18 23:36 - Laboratory Result Diagrams: 08/21/18 23:48 08/21/18 23:48 Laboratory results interpreted by me: 08/21/18 08/21/18 08/21/18 23:48 23:48 23:48 WBC 13.9 H Seg Neutrophils % 79.5 H Lymphocytes % 5.9 L Monocytes % 13.4 H Absolute Neutrophils 11.1 H Absolute Monocytes 1.9 H VBG pCO2 70.3 H* VBG HCO3 42.3 H Sodium 136.0 L Chloride 90 L Carbon Dioxide 36 H Creatinine 0.43 L Glucose 120 H - Diagnostic Test Radiology reviewed: Image reviewed, Reports reviewed Radiology results interpreted by me: 08/22/18 00:41 Chest x-ray: Scarring versus acute infiltrate of the right middle and lower lobe - EKG Interpretation by Me Additional EKG results interpreted by me: 08/22/18 00:42 Sinus rhythm, rate 99. No ST elevations or depressions. QTC is 416. Critical Care Note - Critical Care Note Total time excluding time spent on procedures (mins): 35 Comments: Critical care time spent obtaining history from patient or surrogate, discussions with consultants, development of treatment plan with patient or surrogate, evaluation of patient's response to treatment, examination of patient, ordering and performing treatments and interventions, ordering and review of laboratory studies, re-evaluation of patient's condition, ordering and review of radiographic studies and review of old charts Discharge - Discharge Clinical Impression: Respiratory distress, COPD exacerbation Sepsis Qualifiers: Sepsis type: sepsis due to unspecified organism Qualified Code(s): A41.9 - Sepsis, unspecified organism Pneumonia Qualifiers: Pneumonia type: due to unspecified organism Laterality: right Lung location: lower lobe of lung Qualified Code(s): J18.1 - Lobar pneumonia, unspecified organism Condition: Fair Disposition: ADMITTED INPATIENT Admitting Provider: Hospitalist Unit Admitted: IMCU Referrals: HELIO OCHOA MD [ACTIVE STAFF] - Follow up as needed
[2018-08-21] MEDS: MAGNESIUM SULFATE/D5W 1 GM/100 ML RTUPB IV SCH (23:41)
--- NOTE | 2018-08-21 23:47 | EKG REPORT ---
SEVERITY:- ABNORMAL ECG - SINUS RHYTHM WITH SHORT MA LAD, CONSIDER LEFT ANTERIOR FASCICULAR BLOCK LVH WITH SECONDARY REPOLARIZATION ABNORMALITY VS ISCHEMIA : Confirmed by: Manas Scherer 21-Aug-2018 23:47:19
[2018-08-22 00:17] LABS: VENOUS BLOOD BASE EXCESS 13.7 mmol/L; VENOUS BLOOD HCO3 42.3 mmol/L (20-32); VENOUS BLOOD PH 7.4 (7.30-7.42)
[2018-08-22 00:19] LABS: ABSOLUTE EOSINOPHILS # (AUTO) 0.1 10^3/uL (0.0-0.6); ABSOLUTE LYMPHOCYTES (AUTO) 0.8 10^3/uL (0.5-4.7); ABSOLUTE MONOCYTES (AUTO) 1.9 10^3/uL (0.1-1.4); ABSOLUTE NEUT (AUTO) 11.1 10^3/uL (1.7-8.2); BASOPHILS % (AUTO) 0.3 % (0-2); EOSINOPHILS % (AUTO) 0.9 % (0-6); HEMATOCRIT 38.4 % (36.0-47.0); HEMOGLOBIN 12.8 g/dL (12.0-15.5); LYMPHOCYTES % (AUTO) 5.9 % (13-45); MEAN CORPUSCULAR HEMOGLOBIN 29.1 pg (27.0-33.4); MEAN CORPUSCULAR HGB CONC 33.3 g/dL (32.0-36.0); MEAN CORPUSCULAR VOLUME 88 fl (80-97); MONOCYTES % (AUTO) 13.4 % (3-13); PLATELET COUNT 291 10^3/uL (150-450); RED BLOOD COUNT 4.39 10^6/uL (3.72-5.28); RED CELL DISTRIBUTION WIDTH 12.9 % (11.5-14.0); SEGMENTED NEUTROPHILS % (AUTO) 79.5 % (42-78); TOTAL CELLS COUNTED % (AUTO) 100 %; WHITE BLOOD COUNT 13.9 10^3/uL (4.0-10.5)
[2018-08-22 00:20] LABS: VENOUS BLOOD PCO2 70.3 mmHg (35-63)
[2018-08-22] MEDS ORDERED: ACETAMINOPHEN 325 MG TABLET PO ONE (00:29)
[2018-08-22] MEDS ORDERED: LEVOFLOXACIN 750 MG/D5W RTU 750 MG/150 ML RTUPB IV ONE (00:29)
[2018-08-22 00:35] LABS: BLOOD UREA NITROGEN 13 mg/dL (7-20); CALCIUM 8.9 mg/dL (8.4-10.2); GLUCOSE 120 mg/dL (75-110); POTASSIUM 3.6 mmol/L (3.6-5.0)
[2018-08-22 00:37] LABS: A TYPE INFLUENZA AG NEGATIVE (NEGATIVE); B INFLUENZA AG NEGATIVE (NEGATIVE)
--- NOTE | 2018-08-22 00:40 | RADIOLOGY REPORT (SQ) ---
EXAM DESCRIPTION: XR CHEST 1 VIEW COMPLETED DATE/TME: 08/21/2018 23:33 CLINICAL HISTORY: 68 years, Female, sob, cough COMPARISON: 02/11/2017 chest x-ray NUMBER OF VIEWS: 1 TECHNIQUE: Frontal view chest LIMITATIONS: None. FINDINGS: The heart size is normal. Atheromatous change thoracic aorta. Osteopenia. Underlying emphysema. Subsegmental atelectasis in the lung bases bilaterally. Nodular focus in the left lung base likely reflects an area of nodular scarring. This measures approximately 7.4 mm. On the prior exam, when measured by myself this measured approximately 7 mm. IMPRESSION: Underlying emphysema. COPD. Is likely nodular scarring in the left lung base, similar to the prior exam. Chronic appearing bibasilar interstitial change. copyright 2010 [employer]- All Rights Reserved
[2018-08-22 00:49] LABS: CHLORIDE 90 mmol/L (98-107)
[2018-08-22] MEDS ORDERED: ALBUTEROL SULFATE 0.083% NEB 2.5 MG/3 ML AMPUL NEB ONE (00:54)
[2018-08-22 00:58] LABS: ANION GAP 10 (5-19); CARBON DIOXIDE 36 mmol/L (22-30)
[2018-08-22] MEDS: MAGNESIUM SULFATE/D5W 1 GM/100 ML RTUPB IV SCH (01:05)
[2018-08-22] MEDS ORDERED: ACETAMINOPHEN 325 MG TABLET PO PRN (02:29)
[2018-08-22] MEDS ORDERED: NICOTINE 21 MG/24 HR PATCH.TD24 TD PRN (02:29)
[2018-08-22 03:25] LABS: TRIGLYCERIDES 127 mg/dL (<150)
[2018-08-22 03:37] LABS: DIRECT LDL 68 mg/dL (<100)
--- NOTE | 2018-08-22 03:51 | PDOC H&P ---
History of Present Illness Admission Date/PCP: 08/22/18 01:44 GERARDO WALKER MD Patient complains of: Dyspnea History of Present Illness: PRASAD CLAROS is a 68 year old female who presented via EMS to the emergency room with a 1 week history of progressively worsening upper respiratory symptoms. Her illness began 1 week ago with nasal and sinus congestion with pressure and gradually involved the remainder of the upper airway. She further admits that over the last 12-24 hours she has developed progressively worsening dyspnea associated with a productive cough (thick yellow/green purulent sputum), subjective fever and generalized malaise. She describes her dyspnea as moderate to severe and notes that it is worsened by any activity and was not relieved by use of her albuterol nebulizer and other respiratory medications at home. She admits numerous similar prior episodes some requiring hospitalization with BiPAP therapy. She denies ever having been intubated for her COPD. In the EMS transport she received nebulizers and Solu-Medrol intravenously. She seemed to improve somewhat by the time she arrived at the emergency room however during her course in the emergency room she became progressively worse with increased labor of breathing and decreased oxygenation despite treatment. She subsequently required BiPAP therapy and had a good response with stabilization of her respiratory status and maintenance of an adequate oxygen saturation level. Her white blood count was slightly elevated (after numerous albuterol nebulizers and Solu-Medrol IV) and her chest x-ray showed no acute pulmonary process. Because of her worsening respiratory condition she will be admitted to the intermediate medical care unit for further evaluation and treatment of her acute exacerbation of COPD with acute on chronic respiratory failure with hypoxia. Past Medical History Cardiac Medical History: Reports: Hyperlipidema, Hypertension Denies: Coronary Artery Disease, Myocardial Infarction Pulmonary Medical History: Reports: Asthma, Bronchitis, Chronic Obstructive Pulmonary Disease (COPD), Pneumonia, Respiratory Failure Denies: Intubation, Tuberculosis EENT Medical History: Reports: None Neurological Medical History: Reports: Seizures - last 1997 Denies: Hemorrhagic CVA, Ischemic CVA Endocrine Medical History: Denies: Diabetes Mellitus Type 1, Diabetes Mellitus Type 2, Hyperthyroidism, Hypothyroidism Renal/ Medical History: Denies: Chronic Kidney Disease, Nephrolithiasis Malignancy Medical History: Reports: None GI Medical History: Denies: Cirrhosis, Hepatitis Musculoskeltal Medical History: Reports: Arthritis Denies: Gout Skin Medical History: Denies: Eczema, Psoriasis Psychiatric Medical History: Reports: Depression, Tobacco Dependency Denies: Alcohol Dependency, Substance Abuse Traumatic Medical History: Reports: None Hematology: Reports: None, Anemia - pernicious Denies: Bleeding Tendencies Infectious Medical History: Reports: None Past Surgical History Past Surgical History: Reports: Appendectomy, Cholecystectomy, Hysterectomy, Orthopedic Surgery - Right menisectomy Social History Information Source: Patient Lives with: Spouse/Significant other Smoking Status: Former Smoker Frequency of Alcohol Use: None Hx Recreational Drug Use: No Drugs: None Hx Prescription Drug Abuse: No - Advance Directive Resuscitation Status: Full Code Surrogate healthcare decision maker:: Spouse Family History Family History: CAD, COPD, CVA, Hypertension, Malignancy Parental Family History Reviewed: Yes Children Family History Reviewed: No Sibling(s) Family History Reviewed.: Yes Medication/Allergy Home Medications: Albuterol Sulfate [Proair HFA] 2 puff IH QIDP PRN 03/09/17 Cetirizine HCl [Zyrtec 10 mg Tablet] 10 mg PO DAILY 03/09/17 Escitalopram Oxalate [Lexapro] 20 mg PO DAILY 03/09/17 Fluticasone/Salmeterol [Advair 500-50 Diskus 14 Dose/Diskus] 1 puff IH Q12 03/09/17 Montelukast Sodium [Singulair 10 mg Tablet] 10 mg PO QPM 03/09/17 Omeprazole 20 mg PO DAILY 03/09/17 Phenytoin Sodium Extended [Dilantin 100 mg Capsule.er] 400 mg PO DAILY 03/09/17 Simvastatin 40 mg PO QPM 03/09/17 Tiotropium [place] [Spiriva Respimat] 2 puff IH DAILY 03/09/17 Acetaminophen [Tylenol 325 mg Tablet] 325 mg PO Q4HP PRN #0 tablet 03/16/17 Cyanocobalamin (Vitamin B-12) [B-12] 2,500 mcg SL DAILY #0 lozenge 03/16/17 Allergies/Adverse Reactions: No Known Allergies Allergy (Verified 09/25/16 05:30) Review of Systems Constitutional: PRESENT: fatigue, fever(s), other - Malaise. ABSENT: chills Eyes: ABSENT: visual disturbances, other - Ocular pain Ears: ABSENT: hearing changes, other - Ear pain Nose, Mouth, and Throat: ABSENT: mouth pain, sore throat Cardiovascular: PRESENT: chest pain - Right anterior costal margin, sharp stabbing pain worsened by taking a deep breath or coughing beginning earlier on the day prior to admission and gradually worsening as the work of breathing increased. Pain is gone now since she has been on BiPAP and is no longer working so hard to breathe., dyspnea on exertion. ABSENT: orthropnea, palpitations Respiratory: PRESENT: as per HPI, cough, dyspnea, sputum. ABSENT: hemoptysis Gastrointestinal: ABSENT: abdominal pain, constipation, diarrhea, nausea, vomiting Genitourinary: ABSENT: dysuria, hematuria Musculoskeletal: ABSENT: deformity, joint swelling Integumentary: ABSENT: pruritus, rash Neurological: ABSENT: confusion, convulsions, memory loss, tremor(s) Psychiatric: ABSENT: anxiety, depression Endocrine: ABSENT: cold intolerance, heat intolerance Hematologic/Lymphatic: ABSENT: easy bleeding, easy bruising Allergic/Immunologic: PRESENT: seasonal rhinorrhea Physical Exam Vital Signs: Temp Pulse Resp BP Pulse Ox 100.6 F H 101 H 21 H 151/70 H 89 L 08/21/18 23:36 08/21/18 23:56 08/21/18 23:36 08/21/18 23:36 08/21/18 23:36 Intake & Output 08/20/18 08/21/18 08/22/18 23:59 23:59 23:59 Intake Total 200 Balance 200 Weight 57.153 kg General appearance: PRESENT: no acute distress, well-developed, other - On BiPAP Head exam: PRESENT: atraumatic, normocephalic Eye exam: PRESENT: conjunctiva pink, EOMI. ABSENT: scleral icterus Ear exam: PRESENT: normal external ear exam. ABSENT: bleeding, drainage Mouth exam: PRESENT: dry mucosa, neck supple, tongue midline Neck exam: ABSENT: JVD, thyromegaly, tracheal deviation Respiratory exam: PRESENT: chest wall tenderness - Mildly tender at the right costal margin, symmetrical, other - On BiPAP Cardiovascular exam: PRESENT: RRR. ABSENT: clicks, gallop, rubs Pulses: PRESENT: normal radial pulses, normal dorsalis pedis pul Vascular exam: PRESENT: normal capillary refill. ABSENT: pallor GI/Abdominal exam: PRESENT: normal bowel sounds, soft Rectal exam: PRESENT: deferred Extremities exam: ABSENT: joint swelling, pedal edema Musculoskeletal exam: ABSENT: deformity, dislocation Neurological exam: PRESENT: alert, oriented to person, oriented to place, oriented to time, oriented to situation, CN II-XII grossly intact. ABSENT: motor sensory deficit Psychiatric exam: PRESENT: appropriate affect, normal mood Skin exam: PRESENT: dry, intact, warm. ABSENT: jaundice, rash, urticaria Results Laboratory Results: 08/21/18 23:48 08/21/18 23:48 08/21/18 08/21/18 08/21/18 23:48 23:48 23:48 WBC 13.9 H RBC 4.39 Hgb 12.8 Hct 38.4 MCV 88 MCH 29.1 MCHC 33.3 RDW 12.9 Plt Count 291 Seg Neutrophils % 79.5 H Lymphocytes % 5.9 L Monocytes % 13.4 H Eosinophils % 0.9 Basophils % 0.3 Absolute Neutrophils 11.1 H Absolute Lymphocytes 0.8 Absolute Monocytes 1.9 H Absolute Eosinophils 0.1 Absolute Basophils 0.0 VBG pH VBG pCO2 VBG HCO3 VBG Base Excess Sodium 136.0 L Potassium 3.6 Chloride 90 L Carbon Dioxide 36 H Anion Gap 10 BUN 13 Creatinine 0.43 L Est GFR ( Amer) > 60 Est GFR (Non-Af Amer) > 60 Glucose 120 H Lactic Acid 0.8 Calcium 8.9 08/21/18 23:48 WBC RBC Hgb Hct MCV MCH MCHC RDW Plt Count Seg Neutrophils % Lymphocytes % Monocytes % Eosinophils % Basophils % Absolute Neutrophils Absolute Lymphocytes Absolute Monocytes Absolute Eosinophils Absolute Basophils VBG pH 7.40 VBG pCO2 70.3 H* VBG HCO3 42.3 H VBG Base Excess 13.7 Sodium Potassium Chloride Carbon Dioxide Anion Gap BUN Creatinine Est GFR ( Amer) Est GFR (Non-Af Amer) Glucose Lactic Acid Calcium Impressions: Chest X-Ray 08/21/18 23:33 IMPRESSION: Underlying emphysema. COPD. Is likely nodular scarring in the left lung base, similar to the prior exam. Chronic appearing bibasilar interstitial change. copyright 2010 [employer]- All Rights Reserved Assessment & Plan - Diagnosis (1) Acute and chronic respiratory failure with hypoxia Is this a current diagnosis for this admission?: Yes Plan: Patient will be maintained on BiPAP with settings adjusted as required. She will be monitored with serial arterial blood gases. She will further receive aggressive pulmonary toilet utilizing Xopenex, Atrovent, Pulmicort, Mucomyst and albuterol given via nebulizer as well as intravenous Solu-Medrol. A daily CBC and metabolic profile will be obtained to assess efficacy of therapy and observe for any adverse side effects. (2) SIRS (systemic inflammatory response syndrome) Is this a current diagnosis for this admission?: Yes Plan: Patient's lab work and clinical course will be followed closely to evaluate for potential sepsis. Blood cultures are pending. Lactic acid was initially negative and chest x-ray did not reveal any acute pulmonary infiltrates. Patient's white blood count was elevated however only after receiving numerous doses of albuterol and intravenous Solu-Medrol. At the time of admission it would appear that the diagnosis of sepsis is nearly ruled out. (3) COPD exacerbation Is this a current diagnosis for this admission?: Yes Plan: She will receive an aggressive pulmonary toilet utilizing Xopenex, Atrovent, Pulmicort, Mucomyst and albuterol given via nebulizer as well as intravenous Solu-Medrol. A daily CBC and metabolic profile will be obtained to assess efficacy of therapy and observe for any adverse side effects. She will receive empiric antibiotic therapy utilizing Levaquin 750 mg p.o. daily for an additional 4 doses. (4) Seizure disorder Is this a current diagnosis for this admission?: Yes Plan: Patient's current phenytoin dosage of 400 mg daily will be continued and a phenytoin level will be obtained to evaluate therapy. (5) HLD (hyperlipidemia) Qualifiers: Hyperlipidemia type: unspecified Qualified Code(s): E78.5 - Hyperlipidemia, unspecified Is this a current diagnosis for this admission?: Yes Plan: Patient's simvastatin will be continued during her hospital course. A lipid profile will be obtained to evaluate efficacy of therapy. (6) HTN (hypertension) Qualifiers: Hypertension type: unspecified Qualified Code(s): I10 - Essential (primary) hypertension Is this a current diagnosis for this admission?: Yes Plan: The patient gives a history of hypertension however she is not currently taking any antihypertensive medications. She will be observed during her hospital course for hypertension requiring therapy with serial vital signs. - Time Time Spent: 30 to 50 Minutes Critical Time spent with patient: Less than 15 minutes Medications reviewed and adjusted accordingly: Yes Anticipated discharge: Home - Inpatient Certification Based on my medical assessment, after consideration of the patient's comorbidities, presenting symptoms, or acuity I expect that the services needed warrant INPATIENT care.: Yes I certify that my determination is in accordance with my understanding of Medicare's requirements for reasonable and necessary INPATIENT services [42 CFR 412.3e].: Yes Medical Necessity: Need Close Monitoring Due to Risk of Patient Decompensation, Need For Continuous Telemetry Monitoring, Need for Nebulizer Therapy and Monitoring of Response, Risk of Complication if Not Cared For in Hospital
[2018-08-22] MEDS: METHYLPREDNISOLONE INJ 40 MG/1 ML SDV IV SCH ×3 (05:57→17:10)
[2018-08-22] MEDS: HEPARIN SOD (PORCINE) 5,000 UNIT/ML 1 ML SYRINGE SUBCUT SCH ×3 (05:57→21:15)
[2018-08-22] MEDS: LEVALBUTEROL HCL NEB 1.25 MG/3 ML AMPUL NEB SCH ×3 (07:45→23:24)
[2018-08-22] MEDS: BUDESONIDE NEB 0.5 MG/2 ML AMPUL NEB SCH ×2 (07:45→21:06)
[2018-08-22] MEDS: IPRATROPIUM BROMIDE 0.02% NEB 0.5 MG/2.5 ML AMPUL NEB SCH ×3 (07:45→23:24)
[2018-08-22] MEDS: ACETYLCYSTEINE 20% SOLN 800 MG/4 ML VIAL.NEB NEB SCH ×2 (07:47→21:05)
--- NOTE | 2018-08-22 08:06 | PDOC PROGRESS REPORT ---
Subjective Progress Note for:: 08/22/18 Subjective:: 68-year-old female with history of COPD on home oxygen 3.5 L came to the emergency room with worsening shortness of breath. Placed on BiPAP in the ER given IV Solu-Medrol she was placed on scheduled nebulizations. No acute events in the last 24 hours. Patient vital signs today temperature is 98.1 blood pressure is 122/74. Patient denies any complaints. Pulse ox on BiPAP with oxygen of 40% is 95%. Reason For Visit: ACUTE ON CHRONIC RESPIRATORY FAILURE WITH HYPOXIA Physical Exam Vital Signs: Temp Pulse Resp BP Pulse Ox 97.2 F 94 21 H 122/72 95 08/22/18 07:31 08/22/18 07:45 08/22/18 07:45 08/22/18 07:31 08/22/18 07:45 Intake & Output 08/21/18 08/22/18 08/23/18 06:59 06:59 06:59 Intake Total 1350 Balance 1350 Weight 54.9 kg General appearance: PRESENT: mild distress Head exam: PRESENT: atraumatic Eye exam: PRESENT: PERRLA Mouth exam: PRESENT: dry mucosa Neck exam: ABSENT: carotid bruit, JVD, lymphadenopathy, thyromegaly Respiratory exam: PRESENT: decreased breath sounds, wheezes Cardiovascular exam: PRESENT: tachycardia GI/Abdominal exam: PRESENT: normal bowel sounds, soft. ABSENT: distended, guarding, mass, organolmegaly, rebound, tenderness Neurological exam: PRESENT: alert, awake, oriented to person, oriented to place, oriented to time, oriented to situation, CN II-XII grossly intact. ABSENT: motor sensory deficit Psychiatric exam: PRESENT: appropriate affect, normal mood. ABSENT: homicidal ideation, suicidal ideation Results Laboratory Results: 08/21/18 23:48 08/21/18 23:48 08/21/18 08/21/18 08/21/18 23:48 23:48 23:48 WBC 13.9 H RBC 4.39 Hgb 12.8 Hct 38.4 MCV 88 MCH 29.1 MCHC 33.3 RDW 12.9 Plt Count 291 Seg Neutrophils % 79.5 H Lymphocytes % 5.9 L Monocytes % 13.4 H Eosinophils % 0.9 Basophils % 0.3 Absolute Neutrophils 11.1 H Absolute Lymphocytes 0.8 Absolute Monocytes 1.9 H Absolute Eosinophils 0.1 Absolute Basophils 0.0 VBG pH VBG pCO2 VBG HCO3 VBG Base Excess Sodium 136.0 L Potassium 3.6 Chloride 90 L Carbon Dioxide 36 H Anion Gap 10 BUN 13 Creatinine 0.43 L Est GFR ( Amer) > 60 Est GFR (Non-Af Amer) > 60 Glucose 120 H Lactic Acid 0.8 Calcium 8.9 Triglycerides Cholesterol LDL Cholesterol Direct VLDL Cholesterol HDL Cholesterol 08/21/18 08/22/18 23:48 02:52 WBC RBC Hgb Hct MCV MCH MCHC RDW Plt Count Seg Neutrophils % Lymphocytes % Monocytes % Eosinophils % Basophils % Absolute Neutrophils Absolute Lymphocytes Absolute Monocytes Absolute Eosinophils Absolute Basophils VBG pH 7.40 VBG pCO2 70.3 H* VBG HCO3 42.3 H VBG Base Excess 13.7 Sodium Potassium Chloride Carbon Dioxide Anion Gap BUN Creatinine Est GFR ( Amer) Est GFR (Non-Af Amer) Glucose Lactic Acid Calcium Triglycerides 127 Cholesterol 142.10 LDL Cholesterol Direct 68 VLDL Cholesterol 25.0 HDL Cholesterol 47 Impressions: Chest X-Ray 08/21/18 23:33 IMPRESSION: Underlying emphysema. COPD. Is likely nodular scarring in the left lung base, similar to the prior exam. Chronic appearing bibasilar interstitial change. copyright 2010 [employer]- All Rights Reserved Assessment & Plan - Diagnosis (1) Acute and chronic respiratory failure with hypoxia Is this a current diagnosis for this admission?: Yes Plan: Patient will be maintained on BiPAP with settings adjusted as required. She will be monitored with serial arterial blood gases. She will further receive aggressive pulmonary toilet utilizing Xopenex, Atrovent, Pulmicort, Mucomyst and albuterol given via nebulizer as well as intravenous Solu-Medrol. A daily CBC and metabolic profile will be obtained to assess efficacy of therapy and observe for any adverse side effects. 08/22/2018-Patient came in with exacerbation of COPD with hypoxia and pulse ox is 95% on 40% oxygen with BiPAP. Plan is to continue the BiPAP continue the nebulizations, continue the IV Solu-Medrol, requested for ABG 12 this morning. And I requested for chest physiotherapy today. We are going to do the daily ABGs to see the improvement in oxygen levels and co2 levels. Patient is on levofloxacin . Sputum culture was requested. Blood cultures are pending. (2) COPD exacerbation Is this a current diagnosis for this admission?: Yes Plan: 08/22/2018-patient has history of COPD secondary to smoking on home oxygen 3.5 L. COPD exacerbation most likely secondary to upper respiratory tract infection. She is given the history of a sinus infection and the symptoms moved to her back of the throat ,coughing up greenish sputum so probably upper respiratory infection. Patient on levofloxacin. (3) Seizure disorder Is this a current diagnosis for this admission?: Yes Plan: 08/22/2018 patient has history of seizures disorder and on Dilantin 400 mg p.o. daily, as per the patient last seizure was more than 15 years ago. Dilantin levels are pending this morning. (4) HTN (hypertension) Qualifiers: Hypertension type: unspecified Qualified Code(s): I10 - Essential (primary) hypertension Is this a current diagnosis for this admission?: Yes Plan: 08/22/2018-patient blood pressure today is 122/74. She is not on any antihypertensive medications at home. We are going to check the vital signs on daily basis. (5) Sepsis Qualifiers: Sepsis type: sepsis due to unspecified organism Qualified Code(s): A41.9 - Sepsis, unspecified organism Is this a current diagnosis for this admission?: Yes Plan: 08/22/2018 sepsis is unlikely. The only positive finding is increased WBC lactic acid is negative chest x-ray was negative for pneumonia. Time of admission she is tachypneic and tachycardic. - Time Time Spent with patient: 15-24 minutes Smoking Cessation Education: over 10 minutes Medications reviewed and adjusted accordingly: Yes Anticipated discharge: Home
[2018-08-22 08:36] LABS: ARTERIAL BLOOD BASE EXCESS 12.9 mmol/L; ARTERIAL BLOOD FIO2 40%; ARTERIAL BLOOD H2CO3 2.22 mmol/L (1.05-1.35); ARTERIAL BLOOD HCO3 41.2 mmol/L (20-24); ARTERIAL BLOOD O2 SATURATION 99.3 % (94-98); ARTERIAL BLOOD PH 7.36 (7.35-7.45); ARTERIAL BLOOD TOTAL CO2 43.5 mmol/L (21-25)
[2018-08-22 08:37] LABS: ARTERIAL BLOOD PCO2 73.9 mmHg (35-45)
[2018-08-22] MEDS ORDERED: (PENDING PHARMACY ID) (Cyanocobalamin (Vitamin B-12) [B-12] 2,500 MCG) SL SCH (10:00)
[2018-08-22] MEDS: ESCITALOPRAM OXALATE 10 MG TABLET PO SCH (10:55)
[2018-08-22] MEDS: DOCUSATE SODIUM 100 MG CAPSULE PO SCH ×2 (10:56→17:10)
[2018-08-22] MEDS: LEVOFLOXACIN 750 MG TABLET PO SCH (10:56)
[2018-08-22] MEDS: PHENYTOIN SODIUM EXTENDED 100 MG CAPSULE PO SCH (10:56)
[2018-08-22] MEDS: SIMVASTATIN 40 MG TABLET PO SCH (17:10)
[2018-08-22] MEDS: MONTELUKAST SODIUM 10 MG TABLET PO SCH (17:10)
[2018-08-22] MEDS: ALBUTEROL SULFATE 0.083% NEB 2.5 MG/3 ML AMPUL NEB PRN (21:06)
[2018-08-23] MEDS: METHYLPREDNISOLONE INJ 40 MG/1 ML SDV IV SCH ×3 (00:59→13:32)
[2018-08-23 05:06] LABS: ABSOLUTE BASOPHILS # (AUTO) 0.1 10^3/uL (0.0-0.2); ABSOLUTE EOSINOPHILS # (AUTO) 0.1 10^3/uL (0.0-0.6); ABSOLUTE MONOCYTES (AUTO) 1.4 10^3/uL (0.1-1.4); BASOPHILS % (AUTO) 0.4 % (0-2); EOSINOPHILS % (AUTO) 0.6 % (0-6); HEMATOCRIT 33.2 % (36.0-47.0); HEMOGLOBIN 11.1 g/dL (12.0-15.5); LYMPHOCYTES % (AUTO) 15.9 % (13-45); MEAN CORPUSCULAR HEMOGLOBIN 29.3 pg (27.0-33.4); MEAN CORPUSCULAR HGB CONC 33.6 g/dL (32.0-36.0); MEAN CORPUSCULAR VOLUME 87 fl (80-97); MONOCYTES % (AUTO) 11.5 % (3-13); PLATELET COUNT 300 10^3/uL (150-450); RED BLOOD COUNT 3.81 10^6/uL (3.72-5.28); RED CELL DISTRIBUTION WIDTH 12.8 % (11.5-14.0); SEGMENTED NEUTROPHILS % (AUTO) 71.6 % (42-78); TOTAL CELLS COUNTED % (AUTO) 100 %; WHITE BLOOD COUNT 12.6 10^3/uL (4.0-10.5)
[2018-08-23] MEDS: HEPARIN SOD (PORCINE) 5,000 UNIT/ML 1 ML SYRINGE SUBCUT SCH ×3 (05:35→21:28)
[2018-08-23] MEDS: ALBUTEROL SULFATE 0.083% NEB 2.5 MG/3 ML AMPUL NEB PRN ×2 (05:59→20:56)
[2018-08-23 06:23] LABS: ANION GAP 7 (5-19); BLOOD UREA NITROGEN 10 mg/dL (7-20); CALCIUM 8.7 mg/dL (8.4-10.2); CARBON DIOXIDE 38 mmol/L (22-30); CHLORIDE 90 mmol/L (98-107); GLUCOSE 156 mg/dL (75-110); POTASSIUM 3.7 mmol/L (3.6-5.0); SODIUM 135.2 mmol/L (137-145)
[2018-08-23 06:24] LABS: ARTERIAL BLOOD BASE EXCESS 13.5 mmol/L; ARTERIAL BLOOD H2CO3 2.06 mmol/L (1.05-1.35); ARTERIAL BLOOD HCO3 41.1 mmol/L (20-24); ARTERIAL BLOOD O2 SATURATION 97.8 % (94-98); ARTERIAL BLOOD PCO2 68.4 mmHg (35-45); ARTERIAL BLOOD PO2 109.9 mmHg (80-100); ARTERIAL BLOOD TOTAL CO2 43.2 mmol/L (21-25)
[2018-08-23 06:25] LABS: ARTERIAL BLOOD FIO2 3L
[2018-08-23 06:55] LABS: CHOLESTEROL 144.52 mg/dL (0-200); DIRECT LDL 78 mg/dL (<100); TRIGLYCERIDES 151 mg/dL (<150); VLDL CHOLESTEROL 30.2 mg/dL (10-31)
[2018-08-23] MEDS: ACETYLCYSTEINE 20% SOLN 800 MG/4 ML VIAL.NEB NEB SCH ×2 (07:30→20:56)
[2018-08-23] MEDS: BUDESONIDE NEB 0.5 MG/2 ML AMPUL NEB SCH ×2 (07:30→20:56)
[2018-08-23] MEDS: LEVALBUTEROL HCL NEB 1.25 MG/3 ML AMPUL NEB SCH ×3 (07:30→23:41)
[2018-08-23] MEDS: IPRATROPIUM BROMIDE 0.02% NEB 0.5 MG/2.5 ML AMPUL NEB SCH ×3 (07:36→23:41)
[2018-08-23] MEDS: PHENYTOIN SODIUM EXTENDED 100 MG CAPSULE PO SCH (09:35)
[2018-08-23] MEDS: DOCUSATE SODIUM 100 MG CAPSULE PO SCH ×2 (09:35→17:23)
[2018-08-23] MEDS: ESCITALOPRAM OXALATE 10 MG TABLET PO SCH (09:36)
[2018-08-23] MEDS: LEVOFLOXACIN 750 MG TABLET PO SCH (09:36)
--- NOTE | 2018-08-23 12:56 | PDOC PROGRESS REPORT ---
Subjective Progress Note for:: 08/23/18 Subjective:: This is a 68-year-old female with history of COPD on home oxygen 3.5 L who presented with worsening shortness of breath. Placed on BiPAP in the ER given IV Solu-Medrol and breathing treatments. He was admitted for COPD exacerbation. No acute event overnight. She has been weaned off BIPAP overnight. She desaturated to 80s on 2L but is doing well now on 5L via [place]. She says her SOB has improved from last night but is way far from her baseline yet. Reason For Visit: ACUTE ON CHRONIC RESPIRATORY FAILURE WITH HYPOXIA Physical Exam Vital Signs: Temp Pulse Resp BP Pulse Ox 98.1 F 85 24 H 128/64 H 86 L 08/23/18 07:32 08/23/18 07:32 08/23/18 07:32 08/23/18 07:32 08/23/18 07:32 Intake & Output 08/22/18 08/23/18 08/24/18 06:59 06:59 06:59 Intake Total 1350 600 Output Total 0 Balance 1350 600 Weight 121 lb 0.54 oz 108 lb 3.951 oz General appearance: PRESENT: no acute distress, well-developed, well-nourished Head exam: PRESENT: atraumatic, normocephalic Eye exam: PRESENT: conjunctiva pink, EOMI, PERRLA. ABSENT: scleral icterus Ear exam: PRESENT: normal external ear exam Mouth exam: PRESENT: moist, tongue midline Neck exam: ABSENT: carotid bruit, JVD, lymphadenopathy, thyromegaly Respiratory exam: PRESENT: rhonchi, wheezes. ABSENT: rales Cardiovascular exam: PRESENT: RRR. ABSENT: diastolic murmur, rubs, systolic mur mur Pulses: PRESENT: normal dorsalis pedis pul GI/Abdominal exam: PRESENT: normal bowel sounds, soft. ABSENT: distended, guarding, mass, organolmegaly, rebound, tenderness Rectal exam: PRESENT: deferred Neurological exam: PRESENT: alert, awake, oriented to person, oriented to place, oriented to time, oriented to situation, CN II-XII grossly intact. ABSENT: motor sensory deficit Results Laboratory Results: 08/23/18 03:50 08/23/18 03:50 08/23/18 08/23/18 08/23/18 03:50 03:50 06:05 WBC 12.6 H RBC 3.81 Hgb 11.1 L Hct 33.2 L MCV 87 MCH 29.3 MCHC 33.6 RDW 12.8 Plt Count 300 Seg Neutrophils % 71.6 Lymphocytes % 15.9 Monocytes % 11.5 Eosinophils % 0.6 Basophils % 0.4 Absolute Neutrophils 9.0 H Absolute Lymphocytes 2.0 Absolute Monocytes 1.4 Absolute Eosinophils 0.1 Absolute Basophils 0.1 Carbonic Acid 2.06 H HCO3/H2CO3 Ratio 19:1 ABG pH 7.40 ABG pCO2 68.4 H ABG pO2 109.9 H ABG HCO3 41.1 H ABG O2 Saturation 97.8 ABG Base Excess 13.5 FiO2 3L Sodium 135.2 L Potassium 3.7 Chloride 90 L Carbon Dioxide 38 H Anion Gap 7 BUN 10 Creatinine 0.40 L Est GFR ( Amer) > 60 Est GFR (Non-Af Amer) > 60 Glucose 156 H Calcium 8.7 Magnesium 2.0 Triglycerides 151 H Cholesterol 144.52 LDL Cholesterol Direct 78 VLDL Cholesterol 30.2 HDL Cholesterol 45 Impressions: Chest X-Ray 08/21/18 23:33 IMPRESSION: Underlying emphysema. COPD. Is likely nodular scarring in the left lung base, similar to the prior exam. Chronic appearing bibasilar interstitial change. copyright 2011 [employer]- All Rights Reserved Assessment & Plan - Diagnosis (1) Acute and chronic respiratory failure with hypoxia Is this a current diagnosis for this admission?: Yes Plan: Secondary to COPD exacerbation. Saturating well on 5L of O2 via NC. (2) COPD exacerbation Is this a current diagnosis for this admission?: Yes Plan: [place] solumedrol, Levaquin and scheduled breathing treatments. - Time Time Spent with patient: 15-24 minutes
[2018-08-23] MEDS: SIMVASTATIN 40 MG TABLET PO SCH (17:23)
[2018-08-23] MEDS: MONTELUKAST SODIUM 10 MG TABLET PO SCH (17:23)
[2018-08-24] MEDS: ALBUTEROL SULFATE 0.083% NEB 2.5 MG/3 ML AMPUL NEB PRN ×3 (03:52→19:40)
[2018-08-24 05:36] LABS: ABSOLUTE EOSINOPHILS # (AUTO) 0.1 10^3/uL (0.0-0.6); ABSOLUTE LYMPHOCYTES (AUTO) 1.7 10^3/uL (0.5-4.7); ABSOLUTE MONOCYTES (AUTO) 2.1 10^3/uL (0.1-1.4); ABSOLUTE NEUT (AUTO) 7.6 10^3/uL (1.7-8.2); BASOPHILS % (AUTO) 0.3 % (0-2); EOSINOPHILS % (AUTO) 0.7 % (0-6); HEMATOCRIT 33.2 % (36.0-47.0); HEMOGLOBIN 11.2 g/dL (12.0-15.5); LYMPHOCYTES % (AUTO) 14.8 % (13-45); MEAN CORPUSCULAR HEMOGLOBIN 29.3 pg (27.0-33.4); MEAN CORPUSCULAR HGB CONC 33.6 g/dL (32.0-36.0); MEAN CORPUSCULAR VOLUME 87 fl (80-97); MONOCYTES % (AUTO) 18.3 % (3-13); PLATELET COUNT 330 10^3/uL (150-450); RED CELL DISTRIBUTION WIDTH 12.5 % (11.5-14.0); SEGMENTED NEUTROPHILS % (AUTO) 65.9 % (42-78); TOTAL CELLS COUNTED % (AUTO) 100 %; WHITE BLOOD COUNT 11.5 10^3/uL (4.0-10.5)
[2018-08-24 05:57] LABS: BLOOD UREA NITROGEN 7 mg/dL (7-20); CALCIUM 8.7 mg/dL (8.4-10.2); GLUCOSE 128 mg/dL (75-110); POTASSIUM 3.8 mmol/L (3.6-5.0)
[2018-08-24] MEDS: HEPARIN SOD (PORCINE) 5,000 UNIT/ML 1 ML SYRINGE SUBCUT SCH ×3 (06:03→21:23)
[2018-08-24 06:38] LABS: CHLORIDE 91 mmol/L (98-107); SODIUM 135.7 mmol/L (137-145)
[2018-08-24 06:41] LABS: ANION GAP 6 (5-19); CARBON DIOXIDE 39 mmol/L (22-30)
[2018-08-24] MEDS: IPRATROPIUM BROMIDE 0.02% NEB 0.5 MG/2.5 ML AMPUL NEB SCH ×2 (07:55→16:41)
[2018-08-24] MEDS: ACETYLCYSTEINE 20% SOLN 800 MG/4 ML VIAL.NEB NEB SCH ×2 (07:55→19:40)
[2018-08-24] MEDS: LEVALBUTEROL HCL NEB 1.25 MG/3 ML AMPUL NEB SCH ×2 (07:56→16:41)
[2018-08-24] MEDS: BUDESONIDE NEB 0.5 MG/2 ML AMPUL NEB SCH ×2 (07:56→19:40)
[2018-08-24] MEDS: LEVOFLOXACIN 750 MG TABLET PO SCH (10:58)
[2018-08-24] MEDS: ESCITALOPRAM OXALATE 10 MG TABLET PO SCH (10:58)
[2018-08-24] MEDS: PHENYTOIN SODIUM EXTENDED 100 MG CAPSULE PO SCH (10:58)
[2018-08-24] MEDS: DOCUSATE SODIUM 100 MG CAPSULE PO SCH ×3 (10:58→17:35)
--- NOTE | 2018-08-24 14:07 | PDOC PROGRESS REPORT ---
Subjective Progress Note for:: 08/24/18 Subjective:: This is a 68-year-old female with history of COPD on home oxygen 3.5 L who presented with worsening shortness of breath. Placed on BiPAP in the ER given IV Solu-Medrol and breathing treatments. He was admitted for COPD exacerbation. No acute event overnight. She has been saturating well on 4L via [place]. She says her SOB continue to improve but is not at her baseline yet. She did have moderate wheezes this morning. Reason For Visit: ACUTE ON CHRONIC RESPIRATORY FAILURE WITH HYPOXIA Physical Exam Vital Signs: Temp Pulse Resp BP Pulse Ox 98.5 F 84 18 110/81 89 L 08/24/18 08:05 08/24/18 12:04 08/24/18 12:04 08/24/18 08:05 08/24/18 12:04 Intake & Output 08/23/18 08/24/18 08/25/18 06:59 06:59 06:59 Intake Total 600 980 Output Total 0 Balance 600 980 Weight 108 lb 3.951 oz 111 lb 12.39 oz General appearance: PRESENT: no acute distress, well-developed, well-nourished Head exam: PRESENT: atraumatic, normocephalic Eye exam: PRESENT: conjunctiva pink, EOMI, PERRLA. ABSENT: scleral icterus Ear exam: PRESENT: normal external ear exam Mouth exam: PRESENT: moist, tongue midline Neck exam: ABSENT: carotid bruit, JVD, lymphadenopathy, thyromegaly Respiratory exam: PRESENT: wheezes. ABSENT: rales, rhonchi Cardiovascular exam: PRESENT: RRR. ABSENT: diastolic murmur, rubs, systolic murmur Pulses: PRESENT: normal dorsalis pedis pul GI/Abdominal exam: PRESENT: normal bowel sounds, soft. ABSENT: distended, guarding, mass, organolmegaly, rebound, tenderness Rectal exam: PRESENT: deferred Neurological exam: PRESENT: alert, awake, oriented to person, oriented to place, oriented to time, oriented to situation, CN II-XII grossly intact. ABSENT: motor sensory deficit Results Laboratory Results: 08/24/18 04:32 08/24/18 04:32 08/24/18 08/24/18 04:32 04:32 WBC 11.5 H RBC 3.80 Hgb 11.2 L Hct 33.2 L MCV 87 MCH 29.3 MCHC 33.6 RDW 12.5 Plt Count 330 Seg Neutrophils % 65.9 Lymphocytes % 14.8 Monocytes % 18.3 H Eosinophils % 0.7 Basophils % 0.3 Absolute Neutrophils 7.6 Absolute Lymphocytes 1.7 Absolute Monocytes 2.1 H Absolute Eosinophils 0.1 Absolute Basophils 0.0 Sodium 135.7 L Potassium 3.8 Chloride 91 L Carbon Dioxide 39 H Anion Gap 6 BUN 7 Creatinine 0.41 L Est GFR ( Amer) > 60 Est GFR (Non-Af Amer) > 60 Glucose 128 H Calcium 8.7 Magnesium 1.8 Impressions: Chest X-Ray 08/21/18 23:33 IMPRESSION: Underlying emphysema. COPD. Is likely nodular scarring in the left lung base, similar to the prior exam. Chronic appearing bibasilar interstitial change. copyright 2011 [employer]- All Rights Reserved Assessment & Plan - Diagnosis (1) Acute and chronic respiratory failure with hypoxia Is this a current diagnosis for this admission?: Yes Plan: Secondary to COPD exacerbation. Saturating well on 4L of O2 via [place]. (2) COPD exacerbation Is this a current diagnosis for this admission?: Yes Plan: On Levaquin and scheduled breathing treatments. Switch solumedrol to prednisone. - Time Time Spent with patient: 15-24 minutes
[2018-08-24] MEDS: PREDNISONE 20 MG TABLET PO SCH (17:34)
[2018-08-24] MEDS: MONTELUKAST SODIUM 10 MG TABLET PO SCH (17:34)
[2018-08-24] MEDS: SIMVASTATIN 40 MG TABLET PO SCH (17:34)
[2018-08-25] MEDS: IPRATROPIUM BROMIDE 0.02% NEB 0.5 MG/2.5 ML AMPUL NEB SCH ×2 (00:34→07:39)
[2018-08-25] MEDS: LEVALBUTEROL HCL NEB 1.25 MG/3 ML AMPUL NEB SCH ×2 (00:34→07:39)
[2018-08-25 05:03] LABS: ABSOLUTE EOSINOPHILS # (AUTO) 0.1 10^3/uL (0.0-0.6); ABSOLUTE LYMPHOCYTES (AUTO) 2.6 10^3/uL (0.5-4.7); ABSOLUTE MONOCYTES (AUTO) 1.6 10^3/uL (0.1-1.4); ABSOLUTE NEUT (AUTO) 6.9 10^3/uL (1.7-8.2); BASOPHILS % (AUTO) 0.4 % (0-2); EOSINOPHILS % (AUTO) 0.7 % (0-6); HEMATOCRIT 33.6 % (36.0-47.0); HEMOGLOBIN 11.4 g/dL (12.0-15.5); LYMPHOCYTES % (AUTO) 22.9 % (13-45); MEAN CORPUSCULAR HEMOGLOBIN 29.3 pg (27.0-33.4); MEAN CORPUSCULAR HGB CONC 33.8 g/dL (32.0-36.0); MEAN CORPUSCULAR VOLUME 87 fl (80-97); MONOCYTES % (AUTO) 14.4 % (3-13); PLATELET COUNT 347 10^3/uL (150-450); RED BLOOD COUNT 3.87 10^6/uL (3.72-5.28); RED CELL DISTRIBUTION WIDTH 12.7 % (11.5-14.0); SEGMENTED NEUTROPHILS % (AUTO) 61.6 % (42-78); TOTAL CELLS COUNTED % (AUTO) 100 %; WHITE BLOOD COUNT 11.2 10^3/uL (4.0-10.5)
[2018-08-25 05:23] LABS: BLOOD UREA NITROGEN 7 mg/dL (7-20); CALCIUM 8.6 mg/dL (8.4-10.2); GLUCOSE 138 mg/dL (75-110); POTASSIUM 3.5 mmol/L (3.6-5.0)
[2018-08-25 06:05] LABS: ANION GAP 9 (5-19); CARBON DIOXIDE 38 mmol/L (22-30); CHLORIDE 88 mmol/L (98-107); SODIUM 134.9 mmol/L (137-145)
[2018-08-25] MEDS: HEPARIN SOD (PORCINE) 5,000 UNIT/ML 1 ML SYRINGE SUBCUT SCH ×2 (06:26→13:29)
[2018-08-25] MEDS: ACETYLCYSTEINE 20% SOLN 800 MG/4 ML VIAL.NEB NEB SCH (07:39)
[2018-08-25] MEDS: BUDESONIDE NEB 0.5 MG/2 ML AMPUL NEB SCH (07:39)
[2018-08-25] MEDS: PREDNISONE 20 MG TABLET PO SCH (09:03)
[2018-08-25] MEDS: LEVOFLOXACIN 750 MG TABLET PO SCH (09:03)
[2018-08-25] MEDS: DOCUSATE SODIUM 100 MG CAPSULE PO SCH (09:04)
[2018-08-25] MEDS: ESCITALOPRAM OXALATE 10 MG TABLET PO SCH (09:04)
[2018-08-25] MEDS: PHENYTOIN SODIUM EXTENDED 100 MG CAPSULE PO SCH (09:04)
[2018-08-25 13:41] VITALS: BP 137/72
--- NOTE | 2018-08-25 18:04 | PDOC DISCHARGE SUMMARY ---
General - Admit/Disc Date/PCP Admission Date/Primary Care Provider: 08/22/18 01:44 GERARDO WALKER MD Discharge Date: 08/25/18 - Discharge Diagnosis (1) Acute and chronic respiratory failure with hypoxia Is this a current diagnosis for this admission?: Yes (2) COPD exacerbation Is this a current diagnosis for this admission?: Yes - Additional Information Resuscitation Status: Full Code Discharge Diet: As Tolerated, Cardiac Discharge Activity: Activity As Tolerated, Balance Activity w/Rest Prescriptions: Ipratropium/Albuterol Sulfate [Duoneb 3 ml Ampul] 3 ml NEB RTQ6HP PRN #20 vial.neb PRN Reason: Prednisone [Deltasone 20 mg Tablet] 20 mg PO BID 5 Days #10 tablet Home Medications: Albuterol Sulfate [Proair HFA] 2 puff IH QIDP PRN 03/09/17 Cetirizine HCl [Zyrtec 10 mg Tablet] 10 mg PO DAILY 03/09/17 Escitalopram Oxalate [Lexapro] 20 mg PO DAILY 03/09/17 Fluticasone/Salmeterol [Advair 500-50 Diskus 14 Dose/Diskus] 1 puff IH Q12 03/09/17 Montelukast Sodium [Singulair 10 mg Tablet] 10 mg PO QPM 03/09/17 Omeprazole 20 mg PO DAILY 03/09/17 Phenytoin Sodium Extended [Dilantin 100 mg Capsule.er] 400 mg PO DAILY 03/09/17 Simvastatin 40 mg PO QPM 03/09/17 Tiotropium [place] [Spiriva Respimat] 2 puff IH DAILY 03/09/17 Cyanocobalamin (Vitamin B-12) [B-12] 2,500 mcg SL DAILY #0 lozenge 03/16/17 Felodipine [Felodipine ER] 10 mg PO DAILY 08/22/18 Mometasone Furoate [Nasonex] 1 spray NS Q12 08/22/18 Ipratropium/Albuterol Sulfate [Duoneb 3 ml Ampul] 3 ml NEB RTQ6HP PRN #20 vial.neb 08/25/18 Prednisone [Deltasone 20 mg Tablet] 20 mg PO BID 5 Days #10 tablet 08/25/18 History of Present Illness History of Present Illness: Admitting hospitalist's H&P: PRASAD CLAROS is a 68 year old female who presented via EMS to the emergency room with a 1 week history of progressively worsening upper respiratory symptoms. Her illness began 1 week ago with nasal and sinus congestion with pressure and gradually involved the remainder of the upper airway. She further admits that over the last 12-24 hours she has developed progressively worsening dyspnea associated with a productive cough (thick yellow/green purulent sputum), subjective fever and generalized malaise. She describes her dyspnea as moderate to severe and notes that it is worsened by any activity and was not relieved by use of her albuterol nebulizer and other respiratory medications at home. She admits numerous similar prior episodes some requiring hospitalization with BiPAP therapy. She denies ever having been intubated for her COPD. In the EMS transport she received nebulizers and Solu-Medrol intravenously. She seemed to improve somewhat by the time she arrived at the emergency room however during her course in the emergency room she became progressively worse with increased labor of breathing and decreased oxygenation despite treatment. She subsequently required BiPAP therapy and had a good response with stabilization of her respiratory status and maintenance of an adequate oxygen saturation level. Her white blood count was slightly elevated (after numerous albuterol nebulizers and Solu-Medrol IV) and her chest x-ray showed no acute pulmonary process. Because of her worsening respiratory condition she will be admitted to the intermediate medical care unit for further evaluation and treatment of her acute exacerbation of COPD with acute on chronic respiratory failure with hypoxia. Hospital Course Hospital Course: This is a 68-year-old female with history of COPD on home oxygen 3.5 L who presented with worsening shortness of breath. She was initially placed on BiPAP in the ER and given IV Solu-Medrol and breathing treatments. She was admitted for COPD exacerbation. She did slowly but gradually improved with steroids and breathing treatments. She returned to her baseline and ambulated on the hallway. She will be discharg ed on a short course of prednisone. She was also given a follow up visit with pulmonology to follow-up on her COPD and a questionable nodular opacity on the right lung (deemed likely to be scarring on chest x-ray). Physical Exam Vital Signs: Temp Pulse Resp BP Pulse Ox 98.1 F 83 20 137/72 H 91 L 08/25/18 13:36 08/25/18 13:36 08/25/18 13:36 08/25/18 13:36 08/25/18 13:36 Intake & Output 08/24/18 08/25/18 08/26/18 06:59 06:59 06:59 Intake Total 980 1198 Balance 980 1198 Weight 111 lb 12.39 oz 121 lb 4.068 oz General appearance: PRESENT: no acute distress, well-developed, well-nourished Head exam: PRESENT: atraumatic, normocephalic Eye exam: PRESENT: conjunctiva pink, EOMI, PERRLA. ABSENT: scleral icterus Ear exam: PRESENT: normal external ear exam Mouth exam: PRESENT: moist, tongue midline Neck exam: ABSENT: carotid bruit, JVD, lymphadenopathy, thyromegaly Respiratory exam: PRESENT: clear to auscultation pooja. ABSENT: rales, rhonchi, wheezes Cardiovascular exam: PRESENT: RRR. ABSENT: diastolic murmur, rubs, systolic murmur Pulses: PRESENT: normal dorsalis pedis pul GI/Abdominal exam: PRESENT: normal bowel sounds, soft. ABSENT: distended, guarding, mass, organolmegaly, rebound, tenderness Rectal exam: PRESENT: deferred Neurological exam: PRESENT: alert, awake, oriented to person, oriented to place, oriented to time, oriented to situation, CN II-XII grossly intact. ABSENT: motor sensory deficit Results Laboratory Results: 08/25/18 04:00 08/25/18 04:00 08/25/18 08/25/18 04:00 04:00 WBC 11.2 H RBC 3.87 Hgb 11.4 L Hct 33.6 L MCV 87 MCH 29.3 MCHC 33.8 RDW 12.7 Plt Count 347 Seg Neutrophils % 61.6 Lymphocytes % 22.9 Monocytes % 14.4 H Eosinophils % 0.7 Basophils % 0.4 Absolute Neutrophils 6.9 Absolute Lymphocytes 2.6 Absolute Monocytes 1.6 H Absolute Eosinophils 0.1 Absolute Basophils 0.0 Sodium 134.9 L Potassium 3.5 L Chloride 88 L Carbon Dioxide 38 H Anion Gap 9 BUN 7 Creatinine 0.46 L Est GFR ( Amer) > 60 Est GFR (Non-Af Amer) > 60 Glucose 138 H Calcium 8.6 Magnesium 1.9 08/22/18 08:37 Sputum Gram Stain - Final 08/22/18 08:37 Sputum Sputum Culture - Final NORMAL TYESHA Impressions: Chest X-Ray 08/21/18 23:33 IMPRESSION: Underlying emphysema. COPD. Is likely nodular scarring in the left lung base, similar to the prior exam. Chronic appearing bibasilar interstitial change. copyright 2011 [employer]- All Rights Reserved Qualifiers - * PATIENT BEING DISCHARGED WITH ANY OF THE FOLLOWING DIAGNOSIS: No
== END 2018-08-25 14:12 | disposition home or self-care (01) | DRG 189 ==
LOC: ER 23:23 → EH 08-22 01:44 → 3N 08-22 03:14
PROVIDERS: ADMIT Emergency Medicine; ATTEND Emergency Medicine
PROC: 5A09457 Assistance with Respiratory Ventilation, 24-96 Consecutive Hours, Continuous Positive Airway Pressure (ICD-10-PCS; principal; 2018-08-22)
DX: J96.21 Acute and chronic respiratory failure with hypoxia (principal); J44.1 Chronic obstructive pulmonary disease with (acute) exacerbation; E78.5 Hyperlipidemia, unspecified; I10 Essential (primary) hypertension; G40.909 Epilepsy, unspecified, not intractable, without status epilepticus; M19.90 Unspecified osteoarthritis, unspecified site; Z99.81 Dependence on supplemental oxygen; Z90.49 Acquired absence of other specified parts of digestive tract; Z90.710 Acquired absence of both cervix and uterus; Z87.891 Personal history of nicotine dependence; Z82.49 Family history of ischemic heart disease and other diseases of the circulatory system; Z82.3 Family history of stroke; Z79.899 Other long term (current) drug therapy; Z79.51 Long term (current) use of inhaled steroids
CPT/HCPCS: 36415; 71045; 80048; 80061; 80185; 82803; 83605; 83735; 85025; 87040; 87070; 87205; 87804; 93005; 93010; 94640; 94660; 94667; 94668; 96365; 96367; 99291; J1644; J1956; J2920; J3475; J3490; J7120; J7512

== ENCOUNTER → 2019-03-30 | Outpatient (CLI) | payer MEDICARE, OTHER ==
--- NOTE | 2019-03-30 11:23 | WOMENS IMAGING REPORT ---
EXAM DESCRIPTION: BONE DENSITY HIP/SPINE COMPLETED DATE/TIME: 03/30/2019 10:32 am REASON FOR STUDY: Z78.0 Z78.0 ASYMPTOMATIC MENOPAUSAL STATE COMPARISON: 05/25/2013 TECHNIQUE: Dual-Energy X-ray Absorptiometry (DEXA) of the AP Spine and Hip. LIMITATIONS: None. FINDINGS: LUMBAR SPINE: The bone mineral density (BMD) measured from L1-L4 in the AP projection correlates with a T-score of -2.6, which is osteoporosis as defined by the World Health Organization. BMD Change vs Baseline: +3.1% HIP: The bone mineral density (BMD) measured in the left hip correlates with a T-score of -3.7, which is o steoporosis as defined by the World Health Organization. BMD Change vs Baseline: -27.7% 10 year Fracture Risk Assessment: Major Osteoporotic Fracture: Not available. Hip Fracture: Not available. IMPRESSION: 1. LUMBAR SPINE WHO CLASSIFICATION: Osteoporosis 2. HIP WHO CLASSIFICATION: Osteoporosis OVERALL ASSESSMENT: WHO CLASSIFICATION: Osteoporosis COMMENT: The World Health Organization defines low BMD as follows: T-score: Normal: Greater than -1.0 Osteopenia: Between -1.0 and -2.5 Osteoporosis: Less than -2.5 without fractures Established osteoporosis: Less than -2.5 with fractures In general, you may wish to consider: Diagnosis Treatment Follow-up DEXA Normal BMD Prevention 2-3 years Osteopenia Prevention/Therapy 1-2 years Osteoporosis Therapy Yearly TECHNICAL DOCUMENTATION: JOB ID: [id number] [employer]- All Rights Reserved Reading location - IP/workstation name: [email or web address]
== END ==
LOC: WI 16:12
PROVIDERS: ATTEND Physician Assistant
DX: M81.0 Age-related osteoporosis without current pathological fracture (principal); Z78.0 Asymptomatic menopausal state
CPT/HCPCS: 77080